=== PATIENT | female | born 1945 | race African-American/Black ===

== ENCOUNTER 2017-03-04 09:59 | Inpatient (IN) | payer MEDICARE, MEDICAID ==
[2017-03-04] VITALS (13 sets, daily range): BP systolic 88–158; BP diastolic 56–92
[~2017-03-04] VITALS: Ht 157.5 cm; Wt 68.0 kg
[~2017-03-04 09:59] MED LIST: AFRIN NASAL SPR30 ML NASAL; AMIKACIN SULFATE INH; AMIKIN500 MG/2 M INH; ARTIFICIAL TEAR15 M4 OP; ASCORBIC ACID500 M4 GT; ASPIR-LOW81 MG GT; ASPIRIN81 MG ORAL; BENAZEPRIL HCL10 MG GT; COLACE100 MG/10 GT; COLISTIMETHATE150 MG IJ; CRANBERRY400 MG PO; DULCOLAX10 MG RC; DUONEB 0.5-3(2.53 ML HHN; EPOGEN10000 UNIT SUBQ; FERROUS SU300 MG/52 GT; FLAGYL500 MG GT; FLORASTOR250 MG GT; GLUCOPHAGE500 MG GT; IMODIUM A-D2 MG GT; LACTASE1 GM GT; LACTASE3000 UNIT PO; LANTUS5 UNITS SUBQ; LEVAQUIN500 MG GT; LOPRESSOR25 M1 GT; MEROPENEM500 MG IV; METOPROLOL TART25 MG GT; MILK OF MA400 MG/51 GT; MULTIVITAMIN HEX5 ML GT; MULTIVITAMINS1 EA13 GT; NOVOLOG100 UNIT/3 SUBQ; OMEPRAZOLE20 M2 GT; OS-CAL 500+D C1 EAC1 GT; PEPTO-BISM262 MG/15 PO; SUCRALFATE1 GM/10 ML GT; TYGACIL50 MG IVPB; TYLENOL325 MG GT; VALPROIC A500 MG/10 GT; Vancomycin Hcl MISC
[2017-03-04] MEDS ORDERED: Famotidine 20 MG/ 2ML VIAL IVP ONE (10:15)
[2017-03-04] MEDS ORDERED: MILK OF MA400 MG/51 GT (10:29)
[2017-03-04] MEDS ORDERED: NORCO 5-325 TA1 EACH GT (10:29)
[2017-03-04 10:39] LABS: ABG PCO2 40.2 mmHg (35.0-45.0)
[2017-03-04 10:40] LABS: ABG ALLEN TEST POSITIVE; ABG BASE EXCESS 5.3
--- NOTE | 2017-03-04 11:00 | Diagnostic Imaging Report ---
Indication: Chest Pain Comparison: None A single view chest radiograph was obtained. Findings: There is evidence of a small left pleural effusion and atelectasis. Heart size is normal. Pulmonary edema not appreciated currently. Tracheostomy noted. Bones are osteopenic. Impression: Probable trace left pleural effusion. Mild left basal atelectasis
[2017-03-04 11:28] LABS: MEAN CORPUSCULAR HEMOGLOBIN 25.6 PG (27.0-31.0); MEAN CORPUSCULAR HGB CONC 29.4 G/DL (32.0-36.0); MEAN CORPUSCULAR VOLUME 87 FL (80-99); MEAN PLATELET VOLUME 8.2 FL (6.5-10.1); PLATELET COUNT 431 K/UL (150-450); RED BLOOD COUNT 2.68 M/UL (4.20-5.40); RED CELL DISTRIBUTION WIDTH 14.4 % (11.6-14.8); WHITE BLOOD COUNT 13.3 K/UL (4.8-10.8)
[2017-03-04 11:37] LABS: ALANINE AMINOTRANSFERASE 7 U/L (3-33); ALBUMIN/GLOBULIN RATIO 0.3 (1.0-2.7); ANION GAP 14 (5-15); ASPARTATE AMINO TRANSFERASE 15 U/L (5-40); CALCIUM 9.6 mg/dL (8.6-10.2); CARBON DIOXIDE 28 mEQ/L (20-30); CHLORIDE 93 mEQ/L (98-107); CREATININE 0.7 mg/dL (0.5-0.9); GLOMERULAR FILTRATION RATE > 60 mL/min (>60); HEMOLYSIS 49; POTASSIUM 5.1 mEQ/L (3.4-4.9); SODIUM 135 mEQ/L (135-145); TOTAL PROTEIN 8.8 g/dL (6.6-8.7); TROPONIN I < 0.30 ng/mL (<=0.30)
[2017-03-04 11:44] LABS: REFLEX LACTIC ACID YES OR NO YES
[2017-03-04 11:59] LABS: INR 1.1 (0.9-1.1); PROTHROMBIN TIME 10.7 SEC (9.30-11.50)
[2017-03-04] MEDS ORDERED: metroNIDAZOLE 500mg 100 ML IVPB ONE (12:15)
[2017-03-04] MEDS ORDERED: Acetaminophen 650mg/20.3ml GT STA (12:15)
[2017-03-04] MEDS ORDERED: Piperacillin/Tazobactam 3.375 GM in NS 110 ML IVPB ONE (12:15)
[2017-03-04] MEDS ORDERED: Vancomycin 1 GM in D5W 275 ML IVPB ONE (12:15)
[2017-03-04 12:18] LABS: APPEARANCE,URINE CLOUDY; KETONES,URINE 1+ (NEGATIVE); LEUKOCYTE ESTERASE ,URINE 3+ (NEGATIVE); NITRITE,URINE NEGATIVE (NEGATIVE); PH,URINE 8 (4.5-8.0); PROTEIN,URINE 3+ (NEGATIVE); UROBILINOGEN,URINE NORMAL MG/DL (0.0-1.0)
[2017-03-04 12:26] LABS: ANISOCYTOSIS 1+; BAND NEUTROPHILS % (MANUAL) 1 % (0-8); BASOPHILS % (MANUAL) 0 % (0-2); EOSINOPHILS % (MANUAL) 0 % (0-3); HYPOCHROMASIA 3+; LYMPHOCYTES % (MANUAL) 34 % (20-45); NEUTROPHILS % (MANUAL) 51 % (45-75); PLATELET ESTIMATE ADEQUATE; TOTAL CELLS COUNTED 100
[2017-03-04] MEDS ORDERED: Zosyn 3.375gm inj ONE (12:26)
[2017-03-04 12:27] LABS: PLATELET MORPHOLOGY NORMAL
[2017-03-04 12:29] LABS: BACTERIA,URINE MODERATE /HPF; RBC,URINE TNTC /HPF (0 - 2); SQUAMOUS EPITHELIAL CELL,UR FEW /LPF (NONE/OCC); WBC,URINE TNTC /HPF (0 - 2)
[2017-03-04 12:30] LABS: AMORPHOUS SEDIMENT,UR FEW /LPF
--- NOTE | 2017-03-04 12:46 | Diagnostic Imaging Report ---
Indication: Abdominal pain Comparison: None Single view of the abdomen obtained Findings: Bowel gas pattern is nonspecific. There is retained contrast material from a previous contrast administration. Gastrostomy tube is again noted projected over the left-sided abdomen. Bones are osteopenic. Impression: No acute findings appreciated
--- NOTE | 2017-03-04 12:48 | Emergency Room Report ---
History of Present Illness General Chief Complaint: Abnormal Labs Source: EMS Present Illness HPI Patient sent for low H/H. No h/o bleeding or melena. Trach/vent dependent patient. No other history is available. Allergies: Coded Allergies: HEPARIN (PORCINE) (Verified Allergy, Unknown, 03/31/10) HEPARIN ANALOGUES (Unverified Allergy, Unknown, UNK, 12/18/12) Patient History Limited by: medical condition Past Medical History: see triage record Past Surgical History: other - g tube and trach Social History Narrative at snf Reviewed Nursing Documentation: PMH: Agreed, PSxH: Agreed Nursing Documentation-PMH Hx Cardiac Problems: No Hx Hypertension: Yes Hx Pacemaker: No Hx Asthma: No Hx COPD: No Hx Diabetes: Yes Hx Cancer: No Hx Gastrointestinal Problems: Yes - gtube Hx Dialysis: No Hx Cerebrovascular Accident: Yes Hx Dementia: Yes Hx Seizures: Yes Hx Epilepsy: Yes Hx Aphasia: Yes Hx Dysphasia: Yes Hx Weakness: Yes Hx Neurologic Surgery: No Hx Brain Shunt: No Review of Systems All Other Systems: limited Physical Exam Vital Signs Date Time Temp Pulse Resp B/P Pulse Ox O2 Delivery O2 Flow Rate FiO2 03/04/17 09:57 98.2 110 19 131/82 100 Mechanical Ventilator 03/04/17 10:06 40 Sp02 EP Interpretation: reviewed, normal General Appearance: well appearing, no apparent distress, GCS 15, Chronically Ill Head: normocephalic Eyes: bilateral eye PERRL, bilateral eye conjunctivae pale, bilateral eye other - dyscongugate gaze ENT: moist mucus membranes Neck: supple Respiratory: lungs clear, normal breath sounds Cardiovascular #1: regular rate, rhythm Cardiovascular #2: 2+ radial (R) Gastrointestinal: normal inspection, normal bowel sounds, non tender, no mass, non-distended Rectal: heme negative stool - liquid Genitourinary: other - vinson with purlulent urine Musculoskeletal: decreased range of motion - contractures, other - flexor contractures Neurologic: motor weakness, other - follow with eyes, extrem weakness bilat Psychiatric: other - ebulic Skin: pallor, other - sacrak decubitus Procedures Critical Care Time Critical Care Time Total Critical Care Time: 30 min bedside evaluation and treatment excludes procedures (EKG). Reason for critical care: sepsis, severe anemia, elevated temp Possible complications: hypotension, hypertension, AR, shock, arrhythmias, metabolic acidosis, end organ damage, respiratory failure. Interventions: fluid bolus, antibiotics, antipyretics, discussion with PMD Course: Patient presented with low H/H. Evaluation and initiate treatment for sepsis. Antibiotics begun. Vent adjusted. Discussion with PMD. Repeat evaluations as temp rising. Increased fluids and cooling measures. Consultations: nursing staff, EMS, RT, admitting MD Performed by: Dr. Jarrett Tolerated well condition = critical Medical Decision Making Diagnostic Impression: Primary Impression: Anemia Qualified Codes: D50.9 - Iron deficiency anemia, unspecified Additional Impressions: Sepsis Qualified Codes: A41.9 - Sepsis, unspecified organism UTI (urinary tract infection) Qualified Codes: N30.00 - Acute cystitis without hematuria ER Course Patient with low h/h. Ddx: chronic disease, renal insufficiency, bleeding. Also needs evaluation for possible sepsis with low grade temp. Eval with BC, labs, lactate, CXR, EKG and ABG on vent. Need to set up blood. Complicated chronically ill patient. Guaiac neg. H/H low. Urine infected. Start transfusion. Unable due to fever. ABG with alkalosis. Antibiotics begun. Sepsis from urinary source. Admit rosa m Dr. Judge. Temperature rising. Repeat tylenol and cooling measures begun. Laboratory Tests Test 03/04/17 10:05 03/04/17 11:00 03/04/17 11:58 03/04/17 14:05 Arterial Blood pH 7.479 (7.350-7.450) Arterial Blood Partial Pressure CO2 40.2 mmHg (35.0-45.0) Arterial Blood Partial Pressure O2 148.9 mmHg (75.0-100.0) H Arterial Blood HCO3 29.2 mmol/L (22.0-26.0) H Arterial Blood Oxygen Saturation 99.1 % (92.0-98.0) H Arterial Blood Base Excess 5.3 Santos Test Positive White Blood Count 13.3 K/UL (4.8-10.8) H Red Blood Count 2.68 M/UL (4.20-5.40) L Hemoglobin 6.9 G/DL (12.0-16.0) *L Hematocrit 23.3 % (37.0-47.0) L Mean Corpuscular Volume 87 FL (80-99) Mean Corpuscular Hemoglobin 25.6 PG (27.0-31.0) L Mean Corpuscular Hemoglobin Concent 29.4 G/DL (32.0-36.0) L Red Cell Distribution Width 14.4 % (11.6-14.8) Platelet Count 431 K/UL (150-450) Mean Platelet Volume 8.2 FL (6.5-10.1) Neutrophils (%) (Auto) % (45.0-75.0) Lymphocytes (%) (Auto) % (20.0-45.0) Monocytes (%) (Auto) % (1.0-10.0) Eosinophils (%) (Auto) % (0.0-3.0) Basophils (%) (Auto) % (0.0-2.0) Differential Total Cells Counted 100 Neutrophils % (Manual) 51 % (45-75) Lymphocytes % (Manual) 34 % (20-45) Monocytes % (Manual) 14 % (1-10) H Eosinophils % (Manual) 0 % (0-3) Basophils % (Manual) 0 % (0-2) Band Neutrophils 1 % (0-8) Platelet Estimate Adequate Platelet Morphology Normal Hypochromasia 3+ Anisocytosis 1+ Prothrombin Time 10.7 SEC (9.30-11.50) Prothrombin Time INR 1.1 (0.9-1.1) PTT 22 SEC (23-33) L Sodium Level 135 mEQ/L (135-145) Potassium Level 5.1 mEQ/L (3.4-4.9) H Chloride Level 93 mEQ/L (98-107) L Carbon Dioxide Level 28 mEQ/L (20-30) Anion Gap 14 (5-15) Blood Urea Nitrogen 19 mg/dL (7-23) Creatinine 0.7 mg/dL (0.5-0.9) Estimate Glomerular Filtration Rate > 60 mL/min (>60) Glucose Level 165 mg/dL (74-106) H Lactic Acid Level 3.80 mmol/L (0.66-2.22) H 3.60 mmol/L (0.66-2.22) H Calcium Level 9.6 mg/dL (8.6-10.2) Total Bilirubin < 0.2 mg/dL (0.0-1.2) Aspartate Amino Transferase (AST) 15 U/L (5-40) Alanine Aminotransferase (ALT) 7 U/L (3-33) Alkaline Phosphatase 91 U/L (35-104) Total Creatine Kinase 16 U/L (26-140) L Troponin I < 0.30 ng/mL (<=0.30) Pro-B-Type Natriuretic Peptide 497 pg/mL (0-125) H Total Protein 8.8 g/dL (6.6-8.7) H Albumin 2.5 g/dL (3.5-5.2) L Globulin 6.3 g/dL Albumin/Globulin Ratio 0.3 (1.0-2.7) L Urine Color Pale yellow Urine Appearance Cloudy Urine pH 8 (4.5-8.0) Urine Specific [place] 1.010 (1.005-1.035) Urine Protein 3+ (NEGATIVE) H Urine Glucose (UA) Negative (NEGATIVE) Urine Ketones 1+ (NEGATIVE) H Urine Occult Blood 5+ (NEGATIVE) H Urine Nitrite Negative (NEGATIVE) Urine Bilirubin Negative (NEGATIVE) Urine Urobilinogen Normal MG/DL (0.0-1.0) Urine Leukocyte Esterase 3+ (NEGATIVE) H Urine RBC Tntc /HPF (0 - 2) H Urine WBC Tntc /HPF (0 - 2) H Urine Squamous Epithelial Cells Few /LPF (NONE/OCC) Urine Amorphous Sediment Few /LPF (NONE) H Urine Bacteria Moderate /HPF (NONE) H EKG Diagnostic Results Rate: tachycardiac ST Segments: no acute changes Rhythm Strip Diag. Results EP Interpretation: yes Rhythm: no PVC's, no ectopy, other - ST Chest X-Ray Diagnostic Results EP Interpretation: Yes Findings: no effusion, no pneumothorax, other - atelectasis L Number of Views: 1 Other X-Ray Diagnostic Results Other X-Ray Diagnostic Results : X-Ray Ordered: abd EP Interpretation: Yes Findings: other - clips, some dilitation, no SBO Number of Views: 1 Last Vital Signs Date Time Temp Pulse Resp B/P Pulse Ox O2 Delivery O2 Flow Rate FiO2 03/04/17 20:46 102 18 28 03/04/17 20:33 100.7 100/66 99 Mechanical Ventilator Status: improved Disposition: ADMITTED INPATIENT Condition: Serious Referrals: ALBER JUDGE (PCP) Benedict Jarrett M.D. March 04, 2017 12:48
[2017-03-04] MEDS ORDERED: Vancomycin 1gm in D5W 275ml IVPB SCH (14:00)
[2017-03-04] MEDS ORDERED: Vancomycin 1gm inj IVPB ONE (14:03)
[2017-03-04] MEDS ORDERED: Acetaminophen 650 MG SUPP RECTAL ONE ×2 (15:53→16:00)
[2017-03-04] MEDS ORDERED: ZOFRAN4 M3 ORAL (17:22)
[2017-03-04] MEDS ORDERED: ZOFRAN4 M3 GT (17:23)
[2017-03-04] MEDS ORDERED: ZINC SULFATE220 M2 GT (17:25)
[2017-03-04] MEDS ORDERED: TYLENOL650 MG/20. GT (17:30)
[2017-03-04] MEDS ORDERED: DOCUSATE SODIU250 MG GT (17:35)
[2017-03-04] MEDS ORDERED: FLEET ENEMA133 ML RECTAL (17:38)
[2017-03-04] MEDS ORDERED: Acetaminophen 650mg/20.3ml GT PRN (17:45)
[2017-03-04] MEDS ORDERED: Milk of Magnesia 30ml Ud GT PRN ×2 (17:45)
[2017-03-04] MEDS ORDERED: CRANBERRY GT (17:49)
[2017-03-04] MEDS ORDERED: Ibuprofen Susp 100mg/5ml GT PRN (18:45)
[2017-03-04] MEDS ORDERED: Aspirin EC 81mg tab ORAL SCH (19:00)
[2017-03-04] MEDS ORDERED: Multivitamin w/Minerals tab ORAL SCH (19:00)
[2017-03-04] MEDS: DuoNeb 0.5-3(2.5)mg/3ml neb HHN SCH (19:00)
[2017-03-04] MEDS ORDERED: Docusate 250mg cap ORAL SCH (19:00)
[2017-03-04] MEDS: Metoprolol 25mg tab GT SCH (19:00)
[2017-03-04] MEDS: Valproic Acid 250mg/5ml Liquid NG SCH (22:03)
[2017-03-04] MEDS: Levemir Flexpen SUBQ SCH (22:06)
[2017-03-04] MEDS: Ferrous Sulfate 300 MG/5 ML UDC GT SCH (22:52)
[2017-03-05 00:25] VITALS: BP 113/65
[2017-03-05] MEDS: DuoNeb 0.5-3(2.5)mg/3ml neb HHN SCH ×4 (01:03→19:30)
--- NOTE | 2017-03-05 02:08 | Consultation ---
DATE OF CONSULTATION: 03/04/2017 PULMONARY CONSULTATION CONSULTING PHYSICIAN: Jaime Heller M.D. REFERRING PHYSICIAN: Leighton Zhou M.D. HISTORY OF PRESENT ILLNESS: This is a 72-year-old female well known to me. The patient is ventilator-dependant and resides in the subacute facility at [facility]. The patient was brought in to the emergency room for abnormal labs and worsening hemoglobin, now 6.9 on evaluation. The patient now been admitted for workup and I was called for assistance with ventilatory management. The patient is unable to give a history. The patient is chronically ill and in vegetative state at this point. The care was discussed and reviewed with Dr. Zhou. The ER notes reviewed as well. The patient's care reviewed in detail with the patient. PAST MEDICAL HISTORY: Notable for known history of respiratory failure, tracheostomy, G-tube, chronic encephalopathy, aspiration, prior history of pneumonia, prior history of seizures, and prior history of CVA. MEDICATIONS: Reviewed. ALLERGIES: Reviewed. SOCIAL HISTORY: The patient resides at [facility]. She does have a . She is still Full Code. The patient is essentially bedbound, fully dependent. PHYSICAL EXAMINATION: GENERAL: A well-developed female, chronically ill. VITAL SIGNS: T-max in the emergency room of 103 degrees, heart rate up to 103, blood pressure 121/66, saturation 98%, and respiratory rate 16. HEENT: Fairly negative. Tracheostomy is midline. Carotids 2+. LUNGS: With adequate breath sounds. Minimal rhonchi. CARDIAC: Tachycardic without murmurs, rubs, or gallops. ABDOMEN: Soft. G-tube in place. No distention. EXTREMITIES: No cyanosis or clubbing. There is significant contractures. NEUROLOGIC: Poorly responsive. LABORATORY DATA: White count 13.3, hemoglobin 6.9, hematocrit 23.2, and platelets 431,000. Chemistries, potassium 5.1. Blood sugar 165. Lactic acid 3.6. Arterial blood gases, 7.47, 40, and 148. X-rays were noted and reviewed. Notable for trace +2 effusion and atelectasis. IMPRESSION: 1. Respiratory failure as well as some mild atelectasis. 2. Fever. 3. Leukocytosis. 4. Tachycardia consistent with sepsis. 5. Profound anemia. 6. Possible gastrointestinal bleed. 7. History of seizure. 8. History of cerebrovascular accident. 9. Tracheostomy. 10. Gastrostomy tube. 11. Chronic encephalopathy. RECOMMENDATIONS: 1. Follow up clinically and monitor. 2. IV antibiotics empirically. 3. Panculture. 4. Follow for further changes. 5. Transfused two units of packed red blood cells. 6. GI evaluation needed. 7. Stool for occult blood. 8. Ventilator respiratory support as is. 9. Taper FiO2 and monitor clinically for changes and interventions. 10. The patient is guarded at present and needs close observation in the acute hospital setting. Jaime Heller M.D. DR: JOAO JOB#: [id number] CC: SANIYA
[2017-03-05] MEDS: Piperacillin/Tazobactam 3.375 GM in D5W 110 ML IVPB SCH ×4 (03:57→21:32)
[2017-03-05 04:00] VITALS: BP 103/70
[2017-03-05 08:19] VITALS: BP 124/72
--- NOTE | 2017-03-05 08:32 | Pulmonology Progress Note ---
Assessment/Plan Assessment/Plan IMPRESSION: 1. Respiratory failure . 2. Fever/ sepsis 3. Leukocytosis. 4. Tachycardia 5. Profound anemia. 6. Possible gastrointestinal bleed. 7. History of seizure. 8. History of cerebrovascular accident. 9. Tracheostomy. 10. Gastrostomy tube. 11. Chronic encephalopathy. PLAN no change ventilator iv hydration iv antibiotics follow up labs after transfusion gi and id evaluation supportive measures impression, plan, and exam edited and reviewed in detail care discussed with RN Subjective ROS Limited/Unobtainable: Yes Allergies: Coded Allergies: HEPARIN (PORCINE) (Verified Allergy, Unknown, 03/31/10) HEPARIN ANALOGUES (Unverified Allergy, Unknown, UNK, 12/18/12) Subjective on the ventilator poor LOC Objective Last 24 Hour Vital Signs Date Time Temp Pulse Resp B/P Pulse Ox O2 Delivery O2 Flow Rate FiO2 03/05/17 08:19 103 03/05/17 08:19 97.9 103 18 124/72 98 Mechanical Ventilator 03/05/17 07:13 104 21 28 03/05/17 05:11 88 18 28 03/05/17 04:00 28 03/05/17 04:00 97.4 100 19 103/70 98 Mechanical Ventilator 03/05/17 04:00 83 03/05/17 03:00 90 18 28 03/05/17 01:13 105 23 99 Mechanical Ventilator 28 03/05/17 01:10 103 21 99 Mechanical Ventilator 28 03/05/17 01:03 86 18 28 03/05/17 00:25 97.3 99 18 113/65 99 Mechanical Ventilator 03/05/17 00:00 28 03/05/17 00:00 99 03/04/17 23:20 83 18 28 03/04/17 20:46 102 18 28 03/04/17 20:33 100.7 113 18 100/66 99 Mechanical Ventilator 28 03/04/17 20:30 100.7 113 18 100/66 99 Mechanical Ventilator 03/04/17 19:41 99.8 117 23 123/76 99 Mechanical Ventilator 28 03/04/17 19:31 117 18 28 03/04/17 19:26 99.8 124 18 110/64 100 Mechanical Ventilator 03/04/17 19:00 110 91/53 03/04/17 18:45 118 18 106/63 99 Mechanical Ventilator 03/04/17 18:30 116 18 105/62 99 Mechanical Ventilator 28 03/04/17 18:15 123 18 115/58 99 Mechanical Ventilator 28 03/04/17 17:45 100.9 113 18 88/56 99 Mechanical Ventilator 28 03/04/17 17:45 100.9 03/04/17 17:45 100.9 03/04/17 17:11 141 18 28 03/04/17 16:45 125 18 97/57 98 Mechanical Ventilator 28 03/04/17 16:16 103.0 133 18 121/66 98 Mechanical Ventilator 28 03/04/17 15:23 118 20 28 03/04/17 14:30 102.6 142 25 158/92 98 Room Air 03/04/17 13:42 101.4 123 20 121/69 99 Mechanical Ventilator 28 03/04/17 13:42 101.4 03/04/17 13:26 105 18 28 03/04/17 12:17 100.4 122 18 130/79 99 Mechanical Ventilator 28 03/04/17 11:30 124 20 Mechanical Ventilator 28 03/04/17 11:26 28 03/04/17 11:04 105 18 Mechanical Ventilator 40 03/04/17 10:33 105 18 28 03/04/17 10:17 98.5 105 18 96/61 100 Mechanical Ventilator 40 03/04/17 10:06 105 18 40 03/04/17 10:06 105 18 Mechanical Ventilator 40 03/04/17 09:57 98.2 110 19 131/82 100 Mechanical Ventilator Intake and Output 03/04/17 03/05/17 19:00 07:00 Intake Total 2485 ml 710.542 ml Output Total 10 ml 600 ml Balance 2475 ml 110.542 ml Intake IV Total 2485 ml 440.542 ml Blood Product 270 ml Output Urine Total 10 ml 600 ml # Bowel Movements 1 Objective GENERAL: A well-developed female, chronically ill. HEENT: Fairly negative. Tracheostomy is midline. Carotids 2+. LUNGS: With adequate breath sounds. some rhonchi. CARDIAC: RRR without murmurs, rubs, or gallops. ABDOMEN: Soft. G-tube in place. No distention. no HSM EXTREMITIES: No cyanosis or clubbing. There is significant contractures. NEUROLOGIC: Poorly responsive. same overall Laboratory Tests 03/04/17 10:05: Arterial Blood pH 7.479H, Arterial Blood Partial Pressure CO2 40.2, Arterial Blood Partial Pressure O2 148.9H, Arterial Blood HCO3 29.2H, Arterial Blood Oxygen Saturation 99.1H, Arterial Blood Base Excess 5.3, Santos Test Positive 03/04/17 11:00: White Blood Count 13.3H, Red Blood Count 2.68L, Hemoglobin 6.9*L, Hematocrit 23.3L, Mean Corpuscular Volume 87, Mean Corpuscular Hemoglobin 25.6L, Mean Corpuscular Hemoglobin Concent 29.4L, Red Cell Distribution Width 14.4, Platelet Count 431, Mean Platelet Volume 8.2, Neutrophils (%) (Auto) , Lymphocytes (%) (Auto) , Monocytes (%) (Auto) , Eosinophils (%) (Auto) , Basophils (%) (Auto) , Differential Total Cells Counted 100, Neutrophils % ( Manual) 51, Lymphocytes % (Manual) 34, Monocytes % (Manual) 14H, Eosinophils % ( Manual) 0, Basophils % (Manual) 0, Band Neutrophils 1, Platelet Estimate Adequate, Platelet Morphology Normal, Hypochromasia 3+, Anisocytosis 1+, Prothrombin Time 10.7, Prothromb Time International Ratio 1.1, Activated Partial Thromboplast Time 22L, Sodium Level 135, Potassium Level 5.1H, Chloride Level 93L, Carbon Dioxide Level 28, Anion Gap 14, Blood Urea Nitrogen 19, Creatinine 0.7, Estimat Glomerular Filtration Rate > 60, Glucose Level 165H, Lactic Acid Level 3.80H, Calcium Level 9.6, Total Bilirubin < 0.2, Aspartate Amino Transf (AST/SGOT) 15, Alanine Aminotransferase (ALT/SGPT) 7, Alkaline Phosphatase 91, Total Creatine Kinase 16L, Troponin I < 0.30, Pro-B-Type Natriuretic Peptide 497H, Total Protein 8.8H, Albumin 2.5L, Globulin 6.3, Albumin/Globulin Ratio 0.3L 03/04/17 11:58: Urine Color Pale yellow, Urine Appearance Cloudy, Urine pH 8, Urine Specific [place] 1.010, Urine Protein 3+H, Urine Glucose (UA) Negative, Urine Ketones 1+H , Urine Occult Blood 5+H, Urine Nitrite Negative, Urine Bilirubin Negative, Urine Urobilinogen Normal, Urine Leukocyte Esterase 3+H, Urine RBC TntcH, Urine WBC TntcH, Urine Squamous Epithelial Cells Few, Urine Amorphous Sediment FewH, Urine Bacteria ModerateH 03/04/17 14:05: Lactic Acid Level 3.60H Current Medications Medications (Trade) Dose Ordered Sig/Robert Route PRN Reason Start Time Stop Time Status Last Admin Dose Admin Acetaminophen (Tylenol) 650 mg Q4H PRN GT Prn Headache/Temp > 101 03/04/17 17:45 04/03/17 17:44 Albuterol/ Ipratropium (DuoNeb 0.5-3(2.5)mg/3ml) 3 ml Q6HRT HHN 03/04/17 19:00 03/09/17 18:59 03/05/17 07:13 Aspirin (ASA) 81 mg DAILY GT 03/05/17 09:00 04/04/17 08:59 Bisacodyl (Dulcolax) 10 mg DAILYPRN PRN RECTAL Constipation 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 03/04/17 17:45 04/03/17 17:44 Docusate Sodium 250 mg 250 mg TWICE A DAY ORAL 03/05/17 09:00 04/04/17 08:59 Epoetin Ilia (Procrit (for non ESRD use)) 7,000 units MON-WED-FRI SUBQ 03/05/17 21:00 04/04/17 20:59 Ferrous Sulfate (Feosol) 300 mg BID GT 03/04/17 19:00 04/03/17 18:59 03/04/17 22:52 Ibuprofen (Children's Advil) 400 mg TID PRN GT For Pain 03/04/17 18:45 04/03/17 18:44 03/04/17 19:12 Insulin Detemir (Levemir) 5 units BID SUBQ 03/04/17 21:00 04/03/17 20:59 03/04/17 22:06 Lansoprazole (Prevacid) 30 mg DAILY GT 03/05/17 09:00 04/04/17 08:59 Magnesium Hydroxide (Mom) 30 ml DAILYPRN PRN GT Constipation 03/04/17 17:45 04/03/17 17:44 Metoprolol Tartrate (Lopressor) 12.5 mg DAILY GT 03/04/17 19:00 04/03/17 18:59 Multivitamins (Multivitamins W/ Minerals 15ml Liquid) 15 ml DAILY GT 03/05/17 09:00 04/04/17 08:59 Piperacillin Sod/ Tazobactam Sod/ Dextrose (Zosyn/D5W) 110 ml @ 27.5 mls/hr EVERY 8 HOURS IVPB 03/04/17 22:00 03/09/17 21:59 03/05/17 03:57 Sodium Chloride 1,000 ml @ 75 mls/hr [id number] IV 03/04/17 19:00 04/03/17 18:59 03/04/17 22:05 Valproic Acid 750 mg 750 mg EVERY 12 HOURS NG 03/04/17 21:00 04/03/17 20:59 03/04/17 22:03 Vancomycin HCl (Vanco rx to dose) 1 ea DAILY PRN MISC Per rx protocol 03/04/17 18:00 04/03/17 17:59 Vancomycin HCl/ Dextrose (Vancomycin/D5W) 275 ml @ 183.708 mls/hr Q24H IVPB 03/05/17 12:00 03/10/17 11:59 HAFSA PRESTON March 05, 2017 08:32
[2017-03-05] MEDS: Docusate 100mg/10ml Liq ORAL SCH ×2 (09:00→18:00)
[2017-03-05] MEDS: Vancomycin 1gm in D5W 275ml IVPB SCH (09:43)
[2017-03-05] MEDS: Ferrous Sulfate 300 MG/5 ML UDC GT SCH ×2 (09:44→18:41)
[2017-03-05] MEDS: Metoprolol 25mg tab GT SCH (09:44)
[2017-03-05] MEDS: Multivitamins W/Minerals 15 ML UDC GT SCH (09:44)
[2017-03-05] MEDS: Aspirin Baby 81mg GT SCH (09:44)
[2017-03-05] MEDS: Valproic Acid 250mg/5ml Liquid NG SCH ×2 (09:45→21:31)
[2017-03-05] MEDS: Levemir Flexpen SUBQ SCH ×2 (09:47→18:45)
--- NOTE | 2017-03-05 11:49 | History and Physical Report ---
DATE OF ADMISSION: 03/04/2017 CHIEF COMPLAINT: Sepsis and anemia. HISTORY OF PRESENT ILLNESS: The patient is a 72-year-old female. She has a history of encephalopathy, stroke, chronic respiratory failure, diabetes, hypertension, and seizure disorder. She presented from residential facility for evaluation of anemia. There were no reports of any bleeding. Repeat CBC done at the residential facility confirmed anemia. She also had low-grade fever. On evaluation in the emergency room, the patient's hemoglobin was 6.9. [place] [id number]. The patient had been pancultured and has been started on broad-spectrum IV antibiotics. She is now admitted for further evaluation and care. She is nonverbal at baseline. She is a Full Code. PAST MEDICAL HISTORY: As above. PAST SURGICAL HISTORY: Includes a history of a trach and a G-tube. CURRENT MEDICATIONS: Reconciled and reviewed. ALLERGIES: Include heparin. SOCIAL HISTORY: There is no known history of tobacco, ethanol, or drugs. FAMILY HISTORY: Noncontributory REVIEW OF SYSTEMS: Review of systems from the patient is unobtainable. PHYSICAL EXAMINATION: VITAL SIGNS: T-max was 100.3 degrees current 97.9 degrees, pulse 103, respirations 18, and blood pressure 124/72. GENERAL: The patient is chronically ill-appearing female, in no apparent distress. She is nonverbal at baseline. NECK: Supple. Trach site is clean. HEART: Regular rate and rhythm. LUNGS: Lungs are clear. scattered rhonchi. ABDOMEN: Soft, nontender, and nondistended. EXTREMITIES: Without clubbing or cyanosis. The patient has contractures noted of the hands. LABORATORY DATA: Sodium was 135 and potassium 5.1. Lactic acid was 3.8. White count 13,000, hemoglobin 6, hematocrit 23, and platelet count 431,000. Coags were normal. Chest x-ray shows trace left-sided effusion. UA showed too numerous count WBCs. ASSESSMENT: This is an unfortunate female with history of encephalopathy, chronic respiratory failure, stroke, seizure disorder, diabetes, and hypertension, admitted with sepsis and anemia. Problems, 1. Sepsis caused anemia 2. Shock now recovered. 3. Possible gastrointestinal bleed. 4. Seizure disorder. 5. Diabetes. 6. Hypertension. PLAN: Transfuse hemoglobin greater than 8.5. Check iron studies and stool for occult blood. PPI treatment. Consider GI consultation. Pulmonary consultation for management of patient's ventilator. Cardiology for management of the patient's antihypertensives and heart failure. ID consultation has also been obtained. The patient's plan of care and the patient's status was discussed with the patient's son, who is the patient's power of pharmaceutical compounding supervisor and decision maker. He agrees with current plan of care. Leighton Zhou M.D. DR: Maite JOB#: [id number] CC:
[2017-03-05 12:15] VITALS: BP 108/63
--- NOTE | 2017-03-05 15:15 | Wound Care Consultation ---
Wound Assessment Wound Assessment #1: Wound Present on Admission: Yes New Wound: No Status Change of Wound: No Wound Location Body Site Modif: mid Wound Location Body Site: sacral Wound Type: pressure ulcer Stoney Test: Does not Stoney Pressure Ulcer Stage: IV/unstageable Wound Thickness: Full Thickness Wound Length: 6.5 Wound Width: 8.0 Wound Depth: 3.0 Percent of Wound [place]/Red: 100 Wound Drainage Description: Serosanguineous Wound Drainage Amount: Moderate Wound Drainage Odor: None/Absent Tissue Surrounding Wound: Macerated Wound General Appearance: Draining, Bone Palpable, Muscle Visible Wound Assessment #2: Wound Number: #2 Wound Present on Admission: Yes New Wound: No Status Change of Wound: No Wound Location Body Site: coccyx - and left and right buttocks Wound Type: pressure ulcer Stoney Test: Does not Stoney Pressure Ulcer Stage: III - scattered Wound Thickness: Full Thickness Percent of Wound [place]/Red: 100 Wound Drainage Description: Serosanguineous Wound Drainage Amount: Moderate Wound Drainage Odor: None/Absent Tissue Surrounding Wound: Macerated Wound General Appearance: Reddened, Draining Wound Comment #1 Sacral stage IV pressure ulcer #2 Coccyx area, left and right buttocks with multiple scattered stage III wounds Recommendation -Sacral pressure ulcer Cleanse with saline, pat dry apply Hydrogel apply calcium alginate cover with Bordered Gauze daily and PRN soiled/dislodged -Coccyx area, left and right buttocks multiple scattered stage III Cleanse with saline, pat dry, apply Triad cream, cover with Bordered Gauze daily and PRN soiled/dislodged -Keep clean and dry -Turn and reposition -Optimize nutrition -Low air loss mattress -Offload both heels -Heel protector on both heels -Assess and f/u accordingly for any changes CHANDRIKA GONZALES RN March 05, 2017 15:15
[2017-03-05 15:35] LABS: BASOPHILS % (AUTO) 0.7 % (0.0-2.0); EOSINOPHILS % (AUTO) 1.1 % (0.0-3.0); LYMPHOCYTES % (AUTO) 13.4 % (20.0-45.0); MEAN CORPUSCULAR HEMOGLOBIN 27.1 PG (27.0-31.0); MEAN CORPUSCULAR HGB CONC 31.8 G/DL (32.0-36.0); MEAN CORPUSCULAR VOLUME 85 FL (80-99); MEAN PLATELET VOLUME 7.9 FL (6.5-10.1); MONOCYTES % (AUTO) 8.7 % (1.0-10.0); NEUTROPHILS % (AUTO) 76.1 % (45.0-75.0); PLATELET COUNT 344 K/UL (150-450); RED BLOOD COUNT 3.11 M/UL (4.20-5.40); RED CELL DISTRIBUTION WIDTH 13.9 % (11.6-14.8); WHITE BLOOD COUNT 11.8 K/UL (4.8-10.8)
[2017-03-05 16:00] VITALS: BP 111/67
--- NOTE | 2017-03-05 16:48 | Consultation ---
DATE OF CONSULTATION: 03/05/2017 INFECTIOUS DISEASES CONSULTATION REFERRING PHYSICIAN: Leighton Zhou M.D. REASON FOR CONSULTATION: Fever and leukocytosis. HISTORY OF PRESENTING ILLNESS: This is a 72-year-old lady with history of encephalopathy, stroke, chronic respiratory failure diabetes, hypertension, and seizure disorder, who came in from [facility] with fevers. She was also found to have a leukocytosis and an Infectious Diseases consultation has been obtained for antibiotics. PAST MEDICAL HISTORY: 1. History of encephalopathy. 2. History of stroke. 3. Respiratory failure, status post tracheostomy. 4. Seizure disorder. 5. Diabetes. 6. Hypertension. 7. Status post G-tube placement. MEDICATIONS: As an inpatient, the patient is on Epogen, vancomycin, Prevacid, multivitamin, aspirin, docusate, Zosyn, insulin, valproic acid, ferrous sulfate, albuterol, metoprolol, ibuprofen, Tylenol, bisacodyl, milk of magnesia. ALLERGIES: Heparin . SOCIAL HISTORY: No history of smoking, alcohol, or drug use. FAMILY HISTORY: Noncontributory. REVIEW OF SYSTEMS: Unable to obtain currently. PHYSICAL EXAMINATION: VITAL SIGNS: Temperature of 97.9, T-max of 103, pulse of 89, respiratory rate 18, blood pressure 124/72, O2 saturation of 98%. HEENT: Pupils are equally reactive to light and accommodation. Mouth appears clean without thrush. NECK: Supple. No adenopathy. No JVD. Tracheostomy site appears clean CARDIOVASCULAR: Regular rate and rhythm. No murmurs. LUNGS: Clear to auscultation bilaterally. No crackles. No wheezes. ABDOMEN: Soft and nontender. G-tube site appears clean. EXTREMITIES: No cyanosis, no clubbing, no edema. LABORATORY DATA: White count 13.3, hemoglobin 6.9, hematocrit 23.3, MCV 87, platelet count of 431,000 with neutrophils of 51%. Sodium 135, potassium 5.1, chloride 93, bicarbonate 28, BUN 19, creatinine 0.7, glucose 165. Calcium 9.6. Total bilirubin less than 0.2, AST 15, ALT 7, alkaline phosphatase 91, CK of 16. Troponin less than 0.3. Beta natriuretic peptide 497. Total protein 8.8 and albumin 2.4. UA is showing too numerous to count white cells. Urine culture is growing gram-negative rods, 70,000 to 80,000 colonies. Chest x-ray showing probable trace left-sided pleural effusion, mild left base atelectasis. Abdominal x-ray was unremarkable. ASSESSMENT: 1. This is a 72-year-old lady with history of respiratory failure, seizure disorder, diabetes, and hypertension, who comes in and is found to have a fever and leukocytosis probably secondary to gram-negative urinary tract infection. 2. Diabetes. 3. Hypertension. 4. Seizure disorder. PLAN: 1. Continue vancomycin and Zosyn. 2. We will follow up cultures and adjust antibiotics accordingly. I would like to thank, Dr. Zhou for this consultation. Halie Aguilar M.D. DR: Aislinn JOB#: [id number] CC: Leighton Zhou M.D.
[2017-03-05 20:00] VITALS: BP 126/67
[2017-03-05] MEDS: Epogen (for non ESRD use) SUBQ SCH (21:32)
[2017-03-06] VITALS: BP 108/58
[2017-03-06] MEDS: DuoNeb 0.5-3(2.5)mg/3ml neb HHN SCH ×4 (01:08→20:10)
--- NOTE | 2017-03-06 02:18 | Progress Note ---
DATE: 03/05/2017 SUBJECTIVE: The patient is status post packed red blood cell transfusion. She remains on IV fluids and antibiotics. She is on ventilator support. OBJECTIVE: VITAL SIGNS: Blood pressure 126/67, heart rate 115, respiratory rate 18, and temperature 102 degrees. HEENT: Temporal wasting. Pale conjunctivae. Thin trach secretions. LUNGS: Bilateral rhonchi. HEART: Regular rhythm. Rapid rate. Normal S1 and S2. ABDOMEN: Soft. G-tube is intact. EXTREMITIES: No edema. LABORATORY DATA: Urine culture has less than 100,000 colonies of gram-negative bacillus. White count is 11.8 and hemoglobin 8.4. IMPRESSION: 1. Severe anemia, status post transfusion. 2. Acute myocardial ischemia. 3. Acute diastolic congestive heart failure. 4. Secondary sinus tachycardia. 5. Urinary tract infection with sepsis. 6. Ventilator-dependent respiratory failure. 7. Type 2 diabetes mellitus. 8. History of hypertension. 9. Cerebrovascular disease with dementia and seizure disorder. 10. Lactic acidosis. 11. Severe protein-calorie malnutrition. PLAN: Continue broad-spectrum antibiotics. Ventilator support. Avoid beta agonist. Recheck hemoglobin. May need additional transfusion. Maintain hydration with saline. No diuresis at this time. Protein supplement by feeding tube. Follow up lactic acid levels. Consider beta-simi once hemodynamically more stable. Benedict Gayle M.D. DR: Yao JOB#: [id number] CC:
--- NOTE | 2017-03-06 02:28 | Consultation ---
DATE OF CONSULTATION: 03/04/2017 CARDIOLOGY CONSULTATION: CONSULTING PHYSICIAN: Benedict Gayle M.D. ATTENDING PHYSICIAN: Leighton Zhou M.D. REFERRING PHYSICIAN: Leighton Zhou M.D. REQUESTING PHYSICIAN: Leighton Zhou M.D. REASON FOR CONSULTATION: Elevated natriuretic peptide assay and tachycardia. HISTORY OF PRESENT ILLNESS: This is a 72-year-old female. She has multiple medical problems. She resides at a assisted facility. She was noted to have significant anemia and fevers prompting transfer to the acute care setting. Further concern following her emergency room evaluation was rapid heart rate as well as laboratory suggestion of congestive heart failure. PAST MEDICAL HISTORY: 1. Respiratory failure with tracheostomy. 2. Chronic encephalopathy. 3. Dysphagia with gastrostomy tube. 4. History of aspiration and pneumonia. 5. History of seizures. 6. Cerebrovascular disease with history of cerebrovascular accident and dementia. 7. Hypertension and hypertensive heart disease. 8. Paroxysmal atrial ectopy. 9. Degenerative valve disease. ALLERGIES: Heparin. SOCIAL HISTORY: Negative for smoking, alcohol, or substance abuse. FAMILY HISTORY: Noncontributory. MEDICATIONS: Prior to admission, reviewed and reconciled. REVIEW OF SYSTEMS: Cannot be obtained from the patient due to her underlying dementia. A 20 minutes was spent reviewing the records from prior hospital stays and current assisted home chart. Pertinent data as outlined above. PHYSICAL EXAMINATION: GENERAL: Afebrile, blood pressure is 131/82, pulse 110, and respiratory rate 19. HEENT: Temporal wasting. Pale conjunctivae. Dry mucous membranes. Thin trach secretions. LUNGS: Bilateral breath sounds. Scattered rhonchi. HEART: Regular rhythm. Rapid rate. Normal S1 and S2 with a fourth heart sound and a 1/6 systolic murmur at the base. ABDOMEN: Soft and nontender. G-tube site is intact. EXTREMITIES: With contractures and no edema. NEUROLOGIC: With moderate cognitive impairment. DIAGNOSTIC AND LABORATORY DATA: Chest x-ray reveals atelectasis with small left pleural effusion. Sodium is 135, potassium 5.1, chloride 93, bicarbonate 28, BUN 19, creatinine 0.7, and glucose 165. Albumin is 2.5. Pro-natriuretic peptide is 497. Troponin is less than 0.3. Lactic acid is 3.8. ABG, pH is 7.47, pCO2 40, and pO2 149. White count is 13.3, hemoglobin 6.9, and platelet count 431,000. EKG revealed sinus tachycardia with no acute ST abnormalities. IMPRESSION: 1. Severe anemia. 2. Acute myocardial ischemia. 3. Secondary sinus tachycardia. 4. Acute diastolic congestive heart failure precipitated by above. 5. Urinary tract infection and possible sepsis. 6. Metabolic alkalosis. 7. Cerebrovascular disease with dementia. 8. Ventilator-dependent respiratory failure. 9. Pleural effusion of no hemodynamic significance. PLAN: 1. Panculture. 2. IV antibiotics. 3. Packed red blood cell transfusion. 4. Volume resuscitation. 5. Continue ventilator support. 6. Avoid heparin due to allergy as well as possible bleeding risk. 7. Cardiac monitoring. 8. No role for antiarrhythmics. 9. Consider beta-simi therapy, if persistent tachycardia following correction of severe anemia. Benedict Gayle M.D. DR: Court JOB#: [id number] CC:
[2017-03-06 03:48] LABS: MEAN CORPUSCULAR HEMOGLOBIN 26.8 PG (27.0-31.0); MEAN CORPUSCULAR HGB CONC 31.7 G/DL (32.0-36.0); MEAN CORPUSCULAR VOLUME 85 FL (80-99); PLATELET COUNT 312 K/UL (150-450); RED BLOOD COUNT 2.85 M/UL (4.20-5.40); RED CELL DISTRIBUTION WIDTH 14.2 % (11.6-14.8); WHITE BLOOD COUNT 8.7 K/UL (4.8-10.8)
[2017-03-06 04:00] VITALS: BP 119/73
[2017-03-06 04:15] LABS: ALANINE AMINOTRANSFERASE 6 U/L (3-33); ALBUMIN/GLOBULIN RATIO 0.4 (1.0-2.7); ANION GAP 17 (5-15); ASPARTATE AMINO TRANSFERASE 10 U/L (5-40); CALCIUM 8.1 mg/dL (8.6-10.2); CARBON DIOXIDE 22 mEQ/L (20-30); CHLORIDE 110 mEQ/L (98-107); CREATININE 0.7 mg/dL (0.5-0.9); GLOMERULAR FILTRATION RATE > 60 mL/min (>60); HEMOLYSIS 0; POTASSIUM 3.2 mEQ/L (3.4-4.9); SODIUM 149 mEQ/L (135-145); TOTAL PROTEIN 6.6 g/dL (6.6-8.7)
[2017-03-06 04:23] LABS: REFLEX LACTIC ACID YES OR NO YES
[2017-03-06 05:04] LABS: MAGNESIUM 1.8 mg/dL (1.7-2.5)
[2017-03-06 05:16] LABS: THYROID STIMULATING HORMONE 3.38 uIU/mL (0.300-4.500)
[2017-03-06] MEDS: Piperacillin/Tazobactam 3.375 GM in D5W 110 ML IVPB SCH ×3 (05:51→21:07)
[2017-03-06 08:00] VITALS: BP 110/74
[2017-03-06] MEDS ORDERED: KCl 10% 40mEq/30ml liquid GT ONE (08:00)
--- NOTE | 2017-03-06 08:22 | Pulmonology Progress Note ---
Assessment/Plan Assessment/Plan IMPRESSION: 1. Respiratory failure . 2. Fever/ sepsis 3. Leukocytosis. 4. Tachycardia 5. Profound anemia. 6. Possible gastrointestinal bleed. 7. History of seizure. 8. History of cerebrovascular accident. 9. Tracheostomy. 10. Gastrostomy tube. 11. Chronic encephalopathy. PLAN no change transfuse ventilator iv hydration with caution iv antibiotics and append pending culture results follow up labs no wean adjust ventilator as needed monitor xray supportive measures impression, plan, and exam edited and reviewed in detail care discussed with RN Subjective Allergies: Coded Allergies: HEPARIN (PORCINE) (Verified Allergy, Unknown, 03/31/10) HEPARIN ANALOGUES (Unverified Allergy, Unknown, UNK, 12/18/12) Subjective on the ventilator poor LOC no real change Objective Last 24 Hour Vital Signs Date Time Temp Pulse Resp B/P Pulse Ox O2 Delivery O2 Flow Rate FiO2 03/06/17 07:14 93 18 100 Mechanical Ventilator 03/06/17 07:04 92 18 98 Mechanical Ventilator 03/06/17 07:04 28 03/06/17 07:03 92 18 28 03/06/17 04:38 94 18 28 03/06/17 04:00 97.9 93 18 119/73 96 Mechanical Ventilator 03/06/17 04:00 85 03/06/17 03:10 92 18 28 03/06/17 01:22 91 18 99 Mechanical Ventilator 03/06/17 01:06 91 18 28 03/06/17 01:06 28 03/06/17 01:05 91 18 98 Mechanical Ventilator 03/06/17 00:02 99.9 03/06/17 00:00 108 03/06/17 00:00 28 03/06/17 00:00 101.1 113 18 108/58 96 Mechanical Ventilator 03/05/17 23:22 101 18 28 03/05/17 21:21 106 18 28 03/05/17 20:00 115 03/05/17 20:00 102.0 116 18 126/67 98 Mechanical Ventilator 03/05/17 19:31 28 03/05/17 19:30 111 18 99 Mechanical Ventilator 28 03/05/17 19:29 111 18 28 03/05/17 19:12 111 18 99 Mechanical Ventilator 28 03/05/17 16:49 118 29 28 03/05/17 16:06 85 03/05/17 16:00 98.1 99 18 111/67 97 Mechanical Ventilator 03/05/17 15:16 88 18 28 03/05/17 12:48 88 20 100 Mechanical Ventilator 28 03/05/17 12:33 28 03/05/17 12:33 83 18 28 03/05/17 12:33 84 19 97 Mechanical Ventilator 28 03/05/17 12:15 98.1 86 18 108/63 98 Mechanical Ventilator 03/05/17 11:39 89 03/05/17 10:56 100 18 28 03/05/17 09:44 100 124/72 03/05/17 09:04 100 18 28 Intake and Output 03/05/17 03/06/17 19:00 07:00 Intake Total 1018.75 ml 1165.375 ml Output Total 1550 ml 900 ml Balance -531.25 ml 265.375 ml Intake Free Water 100 ml 200 ml IV Total 618.75 ml 965.375 ml Blood Product 300 ml Output Urine Total 1450 ml 850 ml Stool Total 100 ml 50 ml # Bowel Movements 4 4 Objective GENERAL: A well-developed female, chronically ill. HEENT: Fairly negative. Tracheostomy is midline. Carotids 2+. LUNGS: With adequate breath sounds. some rhonchi. CARDIAC: RRR without murmurs, rubs, or gallops. ABDOMEN: Soft. G-tube in place. No distention. no HSM EXTREMITIES: No cyanosis or clubbing. There is significant contractures. NEUROLOGIC: Poorly responsive. same overall Microbiology Date/Time Source Procedure Growth Status 03/04/17 11:58 Blood Blood Culture - Preliminary NO GROWTH AFTER 24 HOURS Resulted 03/04/17 11:00 Blood Blood Culture - Preliminary NO GROWTH AFTER 24 HOURS Resulted 03/04/17 11:58 Urine,Clean Catch Urine Culture - Preliminary Proteus Mirabilis Resulted Laboratory Tests 03/05/17 14:35: White Blood Count 11.8H, Red Blood Count 3.11L, Hemoglobin 8.4L, Hematocrit 26.6L, Mean Corpuscular Volume 85, Mean Corpuscular Hemoglobin 27.1, Mean Corpuscular Hemoglobin Concent 31.8L, Red Cell Distribution Width 13.9, Platelet Count 344, Mean Platelet Volume 7.9, Neutrophils (%) (Auto) 76.1H, Lymphocytes (%) (Auto) 13.4L, Monocytes (%) (Auto) 8.7, Eosinophils (%) (Auto) 1.1, Basophils (%) (Auto) 0.7 03/06/17 03:11: White Blood Count 8.7, Red Blood Count 2.85L, Hemoglobin 7.6L, Hematocrit 24.1L , Mean Corpuscular Volume 85, Mean Corpuscular Hemoglobin 26.8L, Mean Corpuscular Hemoglobin Concent 31.7L, Red Cell Distribution Width 14.2, Platelet Count 312, Mean Platelet Volume 8.0, Neutrophils (%) (Auto) , Lymphocytes (%) (Auto) , Monocytes (%) (Auto) , Eosinophils (%) (Auto) , Basophils (%) (Auto) , Sodium Level 149H, Potassium Level 3.2L, Chloride Level 110H, Carbon Dioxide Level 22, Anion Gap 17H, Blood Urea Nitrogen 7, Creatinine 0.7, Estimat Glomerular Filtration Rate > 60, Glucose Level 119H, Lactic Acid Level 2.10, Calcium Level 8.1L, Magnesium Level 1.8, Total Bilirubin < 0.2, Aspartate Amino Transf (AST/SGOT) 10, Alanine Aminotransferase (ALT/SGPT) 6, Alkaline Phosphatase 116H, Pro-B-Type Natriuretic Peptide 7177H, Total Protein 6.6, Albumin 1.9L, Globulin 4.7, Albumin/Globulin Ratio 0.4L, Thyroid Stimulating Hormone (TSH) 3.380 Current Medications Medications (Trade) Dose Ordered Sig/Robert Route PRN Reason Start Time Stop Time Status Last Admin Dose Admin Acetaminophen (Tylenol) 650 mg Q4H PRN GT Prn Headache/Temp > 101 03/04/17 17:45 04/03/17 17:44 03/05/17 23:32 Albuterol/ Ipratropium (DuoNeb 0.5-3(2.5)mg/3ml) 3 ml Q6HRT HHN 03/04/17 19:00 03/09/17 18:59 03/06/17 07:04 Aspirin (ASA) 81 mg DAILY GT 03/05/17 09:00 04/04/17 08:59 03/05/17 09:44 Bisacodyl (Dulcolax) 10 mg DAILYPRN PRN RECTAL Constipation 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 03/04/17 17:45 04/03/17 17:44 Docusate Sodium 250 mg 250 mg TWICE A DAY ORAL 03/05/17 09:00 04/04/17 08:59 Epoetin Ilia (Procrit (for non ESRD use)) 7,000 units MON-FRI-FRI SUBQ 03/05/17 21:00 04/04/17 20:59 03/05/17 21:32 Ferrous Sulfate (Feosol) 300 mg BID GT 03/04/17 19:00 04/03/17 18:59 03/05/17 18:41 Ibuprofen (Children's Advil) 400 mg TID PRN GT For Pain 03/04/17 18:45 04/03/17 18:44 03/04/17 19:12 Insulin Detemir (Levemir) 5 units BID SUBQ 03/04/17 21:00 04/03/17 20:59 03/05/17 18:45 Lansoprazole (Prevacid) 30 mg DAILY GT 03/05/17 09:00 04/04/17 08:59 03/05/17 09:44 Magnesium Hydroxide (Mom) 30 ml DAILYPRN PRN GT Constipation 03/04/17 17:45 04/03/17 17:44 Metoprolol Tartrate 12.5 mg 12.5 mg BID GT 03/06/17 09:00 04/05/17 08:59 Multivitamins (Multivitamins W/ Minerals 15ml Liquid) 15 ml DAILY GT 03/05/17 09:00 04/04/17 08:59 03/05/17 09:44 Piperacillin Sod/ Tazobactam Sod/ Dextrose (Zosyn/D5W) 110 ml @ 27.5 mls/hr EVERY 8 HOURS IVPB 03/04/17 22:00 03/09/17 21:59 03/06/17 05:51 Sodium Chloride (0.45% NS 1000ml) 1,000 ml @ 75 mls/hr [id number] IV 03/06/17 08:00 04/05/17 07:59 Valproic Acid 750 mg 750 mg EVERY 12 HOURS NG 03/04/17 21:00 04/03/17 20:59 03/05/17 21:31 Vancomycin HCl (Vanco rx to dose) 1 ea DAILY PRN MISC Per rx protocol 03/04/17 18:00 04/03/17 17:59 Vancomycin HCl/ Dextrose (Vancomycin/D5W) 275 ml @ 183.708 mls/hr Q24H IVPB 03/05/17 12:00 03/10/17 11:59 03/05/17 09:43 HAFSA PRESTON March 06, 2017 08:22
--- NOTE | 2017-03-06 08:39 | Cardiology Report ---
APPROVED REPORT EKG Measurement Heart [id number] Sinus tachycardia Otherwise normal ECG
[2017-03-06] MEDS: Ferrous Sulfate 300 MG/5 ML UDC GT SCH ×2 (09:00→18:03)
[2017-03-06] MEDS: Multivitamins W/Minerals 15 ML UDC GT SCH (09:00)
[2017-03-06] MEDS: Aspirin Baby 81mg GT SCH (09:28)
[2017-03-06] MEDS: Metoprolol 25mg tab GT SCH ×2 (09:28→18:04)
[2017-03-06] MEDS: Docusate 100mg/10ml Liq ORAL SCH ×2 (09:29→18:03)
[2017-03-06] MEDS: Valproic Acid 250mg/5ml Liquid NG SCH ×2 (09:30→21:08)
[2017-03-06] MEDS: Levemir Flexpen SUBQ SCH ×2 (09:33→18:10)
[2017-03-06 12:06] VITALS: BP 114/83
--- NOTE | 2017-03-06 13:19 | Infectious Diseases Prog Note ---
Assessment/Plan Assessment/Plan A: Sepsis Proteus UTI Anemia VDRF DM HPN P: continue Zosyn & Vancomycin will f/u cultures Subjective ROS Limited/Unobtainable: Yes Constitutional: Reports: fever, other - [id number], no fever today Allergies: Coded Allergies: HEPARIN (PORCINE) (Verified Allergy, Unknown, 03/31/10) HEPARIN ANALOGUES (Unverified Allergy, Unknown, UNK, 12/18/12) Objective Vital Signs Last 24 Hour Vital Signs Date Time Temp Pulse Resp B/P Pulse Ox O2 Delivery O2 Flow Rate FiO2 03/06/17 13:04 28 03/06/17 13:04 75 18 100 Mechanical Ventilator 03/06/17 13:03 76 18 28 03/06/17 12:06 97.8 84 18 114/83 99 Mechanical Ventilator 03/06/17 10:52 94 18 28 03/06/17 09:28 90 18 28 03/06/17 09:28 96 110/74 03/06/17 08:00 98.2 96 18 110/74 98 Mechanical Ventilator 03/06/17 08:00 108 03/06/17 07:14 93 18 100 Mechanical Ventilator 03/06/17 07:04 92 18 98 Mechanical Ventilator 03/06/17 07:04 28 03/06/17 07:03 92 18 28 03/06/17 04:38 94 18 28 03/06/17 04:00 97.9 93 18 119/73 96 Mechanical Ventilator 03/06/17 04:00 85 03/06/17 03:10 92 18 28 03/06/17 01:22 91 18 99 Mechanical Ventilator 03/06/17 01:06 91 18 28 03/06/17 01:06 28 03/06/17 01:05 91 18 98 Mechanical Ventilator 03/06/17 00:02 99.9 03/06/17 00:00 108 03/06/17 00:00 28 03/06/17 00:00 101.1 113 18 108/58 96 Mechanical Ventilator 03/05/17 23:22 101 18 28 03/05/17 21:21 106 18 28 03/05/17 20:00 115 03/05/17 20:00 102.0 116 18 126/67 98 Mechanical Ventilator 03/05/17 19:31 28 03/05/17 19:30 111 18 99 Mechanical Ventilator 17 19:29 111 18 28 03/05/17 19:12 111 18 99 Mechanical Ventilator 28 03/05/17 16:49 118 29 28 03/05/17 16:06 85 03/05/17 16:00 98.1 99 18 111/67 97 Mechanical Ventilator 03/05/17 15:16 88 18 28 Height (Feet): 5 Height (Inches): 2.00 Weight (Pounds): 150 HEENT: status post trach Respiratory/Chest: rhonchi - bilaterally Cardiovascular: normal rate Abdomen: soft, non tender, other - GT feeding Genitourinary: other - Watkins catheter Neurologic/Psychiatric: other - obtunded Microbiology Date/Time Source Procedure Growth Status 03/04/17 11:58 Blood Blood Culture - Preliminary NO GROWTH AFTER 24 HOURS Resulted 03/04/17 11:00 Blood Blood Culture - Preliminary NO GROWTH AFTER 24 HOURS Resulted 03/04/17 11:58 Urine,Clean Catch Urine Culture - Preliminary Proteus Mirabilis Resulted Laboratory Tests Test 03/05/17 14:35 03/06/17 03:11 03/06/17 08:40 White Blood Count 11.8 K/UL (4.8-10.8) H 8.7 K/UL (4.8-10.8) Red Blood Count 3.11 M/UL (4.20-5.40) L 2.85 M/UL (4.20-5.40) L Hemoglobin 8.4 G/DL (12.0-16.0) L 7.6 G/DL (12.0-16.0) L Hematocrit 26.6 % (37.0-47.0) L 24.1 % (37.0-47.0) L Mean Corpuscular Volume 85 FL (80-99) 85 FL (80-99) Mean Corpuscular Hemoglobin 27.1 PG (27.0-31.0) 26.8 PG (27.0-31.0) L Mean Corpuscular Hemoglobin Concent 31.8 G/DL (32.0-36.0) L 31.7 G/DL (32.0-36.0) L Red Cell Distribution Width 13.9 % (11.6-14.8) 14.2 % (11.6-14.8) Platelet Count 344 K/UL (150-450) 312 K/UL (150-450) Mean Platelet Volume 7.9 FL (6.5-10.1) 8.0 FL (6.5-10.1) Neutrophils (%) (Auto) 76.1 % (45.0-75.0) H % (45.0-75.0) Lymphocytes (%) (Auto) 13.4 % (20.0-45.0) L % (20.0-45.0) Monocytes (%) (Auto) 8.7 % (1.0-10.0) % (1.0-10.0) Eosinophils (%) (Auto) 1.1 % (0.0-3.0) % (0.0-3.0) Basophils (%) (Auto) 0.7 % (0.0-2.0) % (0.0-2.0) Sodium Level 149 mEQ/L (135-145) H Potassium Level 3.2 mEQ/L (3.4-4.9) L Chloride Level 110 mEQ/L (98-107) H Carbon Dioxide Level 22 mEQ/L (20-30) Anion Gap 17 (5-15) H Blood Urea Nitrogen 7 mg/dL (7-23) Creatinine 0.7 mg/dL (0.5-0.9) Estimat Glomerular Filtration Rate > 60 mL/min (>60) Glucose Level 119 mg/dL (74-106) H Lactic Acid Level 2.10 mmol/L (0.66-2.22) 0.90 mmol/L (0.66-2.22) Calcium Level 8.1 mg/dL (8.6-10.2) L Magnesium Level 1.8 mg/dL (1.7-2.5) Total Bilirubin < 0.2 mg/dL (0.0-1.2) Aspartate Amino Transf (AST/SGOT) 10 U/L (5-40) Alanine Aminotransferase (ALT/SGPT) 6 U/L (3-33) Alkaline Phosphatase 116 U/L (35-104) H Pro-B-Type Natriuretic Peptide 7177 pg/mL (0-125) H Total Protein 6.6 g/dL (6.6-8.7) Albumin 1.9 g/dL (3.5-5.2) L Globulin 4.7 g/dL Albumin/Globulin Ratio 0.4 (1.0-2.7) L Thyroid Stimulating Hormone (TSH) 3.380 uIU/mL (0.300-4.500) Current Medications Medications (Trade) Dose Ordered Sig/Robert Route PRN Reason Start Time Stop Time Status Last Admin Dose Admin Acetaminophen (Tylenol) 650 mg Q4H PRN GT Prn Headache/Temp > 101 03/04/17 17:45 04/03/17 17:44 03/05/17 23:32 Albuterol/ Ipratropium (DuoNeb 0.5-3(2.5)mg/3ml) 3 ml Q6HRT HHN 03/04/17 19:00 03/09/17 18:59 03/06/17 13:03 Aspirin (ASA) 81 mg DAILY GT 03/05/17 09:00 04/04/17 08:59 03/06/17 09:28 Bisacodyl (Dulcolax) 10 mg DAILYPRN PRN RECTAL Constipation 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 03/04/17 17:45 04/03/17 17:44 Docusate Sodium 250 mg 250 mg TWICE A DAY ORAL 03/05/17 09:00 04/04/17 08:59 03/06/17 09:29 Epoetin Ilia (Procrit (for non ESRD use)) 7,000 units FRI-FRI-FRI SUBQ 03/05/17 21:00 04/04/17 20:59 03/05/17 21:32 Ferrous Sulfate (Feosol) 300 mg BID GT 03/04/17 19:00 04/03/17 18:59 03/06/17 09:00 Ibuprofen (Children's Advil) 400 mg TID PRN GT For Pain 03/04/17 18:45 04/03/17 18:44 03/04/17 19:12 Insulin Detemir (Levemir) 5 units BID SUBQ 03/04/17 21:00 04/03/17 20:59 03/06/17 09:33 Lansoprazole (Prevacid) 30 mg DAILY GT 03/05/17 09:00 04/04/17 08:59 03/06/17 09:29 Magnesium Hydroxide (Mom) 30 ml DAILYPRN PRN GT Constipation 03/04/17 17:45 04/03/17 17:44 Metoprolol Tartrate 12.5 mg 12.5 mg BID GT 03/06/17 09:00 04/05/17 08:59 03/06/17 09:28 Multivitamins (Multivitamins W/ Minerals 15ml Liquid) 15 ml DAILY GT 03/05/17 09:00 04/04/17 08:59 03/06/17 09:00 Piperacillin Sod/ Tazobactam Sod/ Dextrose (Zosyn/D5W) 110 ml @ 27.5 mls/hr EVERY 8 HOURS IVPB 03/04/17 22:00 03/09/17 21:59 03/06/17 05:51 Sodium Chloride (0.45% NS 1000ml) 1,000 ml @ 75 mls/hr [id number] IV 03/06/17 08:00 04/05/17 07:59 03/06/17 09:40 Valproic Acid 750 mg 750 mg EVERY 12 HOURS NG 03/04/17 21:00 04/03/17 20:59 03/06/17 09:30 Vancomycin HCl (Vanco rx to dose) 1 ea DAILY PRN MISC Per rx protocol 03/04/17 18:00 04/03/17 17:59 Vancomycin HCl/ Dextrose (Vancomycin/D5W) 275 ml @ 183.708 mls/hr Q24H IVPB 03/05/17 12:00 03/10/17 11:59 03/05/17 09:43 RADHA BURNETT March 06, 2017 13:19
--- NOTE | 2017-03-06 13:45 | General Progress Note ---
Assessment/Plan Problem List: (1) Fever ICD Codes: R50.9 - Fever, unspecified SNOMED: 705933596 (2) Lactic acid acidosis ICD Codes: E87.2 - Acidosis SNOMED: 09952076 (3) Seizure disorder ICD Codes: G40.909 - Epilepsy, unspecified, not intractable, without status epilepticus SNOMED: 302488665 (4) Encephalopathies ICD Codes: G93.40 - Encephalopathies SNOMED: 92702944 (5) Sepsis ICD Codes: A41.9 - Sepsis SNOMED: 25071808 (6) Pneumonia ICD Codes: J18.9 - Pneumonia, unspecified organism SNOMED: 681668074 (7) UTI (urinary tract infection) ICD Codes: N39.0 - Urinary tract infection, site not specified SNOMED: 53592862 Qualifiers: Qualified Codes: N30.00 - Acute cystitis without hematuria Status: stable, progressing Assessment/Plan transfuse. check stool ob. monitor for bleeding. iv abx per id IVF adjusted. monitor lytes wound care GI eval for leaking gt Subjective ROS Limited/Unobtainable: Yes Constitutional: Reports: malaise, weakness HEENT: Reports: no symptoms Cardiovascular: Reports: no symptoms Respiratory: Reports: shortness of breath, sputum Gastrointestinal/Abdominal: Reports: difficulty swallowing Genitourinary: Reports: no symptoms Neurologic/Psychiatric: Reports: pre-existing deficit, seizure Endocrine: Reports: no symptoms Hematologic/Lymphatic: Reports: anemia Allergies: Coded Allergies: HEPARIN (PORCINE) (Verified Allergy, Unknown, 03/31/10) HEPARIN ANALOGUES (Unverified Allergy, Unknown, UNK, 12/18/12) All Systems: reviewed and negative except above Subjective fever better. +Ucx noted. decrease h/h. no bleeding noted. on iv abx and ivf. high sodium noted. Objective Last 24 Hour Vital Signs Date Time Temp Pulse Resp B/P Pulse Ox O2 Delivery O2 Flow Rate FiO2 03/06/17 13:04 28 03/06/17 13:04 75 18 100 Mechanical Ventilator 03/06/17 13:03 76 18 28 03/06/17 12:06 97.8 84 18 114/83 99 Mechanical Ventilator 03/06/17 10:52 94 18 28 03/06/17 09:28 90 18 28 03/06/17 09:28 96 110/74 03/06/17 08:00 98.2 96 18 110/74 98 Mechanical Ventilator 28 03/06/17 08:00 108 03/06/17 07:14 93 18 100 Mechanical Ventilator 28 03/06/17 07:04 92 18 98 Mechanical Ventilator 28 03/06/17 07:04 28 03/06/17 07:03 92 18 28 03/06/17 04:38 94 18 28 03/06/17 04:00 97.9 93 18 119/73 96 Mechanical Ventilator 03/06/17 04:00 85 03/06/17 03:10 92 18 28 03/06/17 01:22 91 18 99 Mechanical Ventilator 28 03/06/17 01:06 91 18 28 03/06/17 01:06 28 03/06/17 01:05 91 18 98 Mechanical Ventilator 28 03/06/17 00:02 99.9 03/06/17 00:00 108 03/06/17 00:00 28 03/06/17 00:00 101.1 113 18 108/58 96 Mechanical Ventilator 03/05/17 23:22 101 18 28 03/05/17 21:21 106 18 28 03/05/17 20:00 115 03/05/17 20:00 102.0 116 18 126/67 98 Mechanical Ventilator 03/05/17 19:31 28 03/05/17 19:30 111 18 99 Mechanical Ventilator 28 03/05/17 19:29 111 18 28 03/05/17 19:12 111 18 99 Mechanical Ventilator 28 03/05/17 16:49 118 29 28 03/05/17 16:06 85 03/05/17 16:00 98.1 99 18 111/67 97 Mechanical Ventilator 03/05/17 15:16 88 18 28 Intake and Output 03/05/17 03/06/17 19:00 07:00 Intake Total 1018.75 ml 1165.375 ml Output Total 1550 ml 900 ml Balance -531.25 ml 265.375 ml Intake Free Water 100 ml 200 ml IV Total 618.75 ml 965.375 ml Blood Product 300 ml Output Urine Total 1450 ml 850 ml Stool Total 100 ml 50 ml # Bowel Movements 4 4 Laboratory Tests 03/05/17 14:35: White Blood Count 11.8H, Red Blood Count 3.11L, Hemoglobin 8.4L, Hematocrit 26.6L, Mean Corpuscular Volume 85, Mean Corpuscular Hemoglobin 27.1, Mean Corpuscular Hemoglobin Concent 31.8L, Red Cell Distribution Width 13.9, Platelet Count 344, Mean Platelet Volume 7.9, Neutrophils (%) (Auto) 76.1H, Lymphocytes (%) (Auto) 13.4L, Monocytes (%) (Auto) 8.7, Eosinophils (%) (Auto) 1.1, Basophils (%) (Auto) 0.7 03/06/17 03:11: White Blood Count 8.7, Red Blood Count 2.85L, Hemoglobin 7.6L, Hematocrit 24.1L , Mean Corpuscular Volume 85, Mean Corpuscular Hemoglobin 26.8L, Mean Corpuscular Hemoglobin Concent 31.7L, Red Cell Distribution Width 14.2, Platelet Count 312, Mean Platelet Volume 8.0, Neutrophils (%) (Auto) , Lymphocytes (%) (Auto) , Monocytes (%) (Auto) , Eosinophils (%) (Auto) , Basophils (%) (Auto) , Sodium Level 149H, Potassium Level 3.2L, Chloride Level 110H, Carbon Dioxide Level 22, Anion Gap 17H, Blood Urea Nitrogen 7, Creatinine 0.7, Estimat Glomerular Filtration Rate > 60, Glucose Level 119H, Lactic Acid Level 2.10, Calcium Level 8.1L, Magnesium Level 1.8, Total Bilirubin < 0.2, Aspartate Amino Transf (AST/SGOT) 10, Alanine Aminotransferase (ALT/SGPT) 6, Alkaline Phosphatase 116H, Pro-B-Type Natriuretic Peptide 7177H, Total Protein 6.6, Albumin 1.9L, Globulin 4.7, Albumin/Globulin Ratio 0.4L, Thyroid Stimulating Hormone (TSH) 3.380 03/06/17 08:40: Lactic Acid Level 0.90 Height (Feet): 5 Height (Inches): 2.00 Weight (Pounds): 150 General Appearance: WD/WN, lethargic, confused Neck: supple Cardiovascular: normal rate Respiratory/Chest: lungs clear Abdomen: normal bowel sounds, non tender, soft, no organomegaly Edema: no edema noted Arm (L), no edema noted Arm (R), no edema noted Leg (L), no edema noted Leg (R), no edema noted Pedal (L), no edema noted Pedal (R), no edema noted Generalized Neurologic: motor weakness, disoriented Skin: normal pigmentation ALBER JUDGE March 06, 2017 13:45
[2017-03-06] MEDS: Vancomycin 1gm in D5W 275ml IVPB SCH (15:21)
[2017-03-06 16:00] VITALS: BP 152/98
--- NOTE | 2017-03-06 17:19 | Progress Note ---
DATE: 03/06/2017 SUBJECTIVE: The patient remains on ventilator support. She is poorly responsive. OBJECTIVE: VITAL SIGNS: Blood pressure 119/73, pulse 95, respiratory rate 18, and afebrile. Monitored rhythm, sinus. T-max 102. LUNGS: Bilateral breath sounds with rhonchi. HEART: Regular rhythm and rate. Normal S1 and S2 with a fourth heart sound. A 1/6 systolic murmur at apex. ABDOMEN: Soft. EXTREMITIES: Trace edema. LABORATORY STUDIES: White count 8.7 and hemoglobin 7.6. Potassium 3.2, sodium 149, bicarbonate 22, BUN 7, and creatinine 0.7. Pro-natriuretic peptide over 7000. Lactic acid now is normal. Magnesium 1.8. IMPRESSION: 1. Acute myocardial ischemia. 2. Severe anemia. 3. Sinus tachycardia. 4. Acute diastolic congestive heart failure. 5. Urinary tract infection with sepsis. 6. Ventilator-dependent respiratory failure. 7. Dehydration. 8. Hypernatremia. 9. Hypokalemia. 10. Hyperchloremia. PLAN: 1. Packed red blood cell transfusion. 2. Antimicrobials. 3. Hypotonic IV fluids. 4. Potassium replacement. 5. Continue iron and Epogen. 6. Titrate beta-simi. 7. Cautious use of antiplatelet therapy. 8. Monitor for signs of acute blood loss. Benedict Gayle M.D. DR: BASIA JOB#: [id number] CC:
[2017-03-06 20:00] VITALS: BP 141/86
[2017-03-07] VITALS: BP 143/94
[2017-03-07] MEDS: DuoNeb 0.5-3(2.5)mg/3ml neb HHN SCH ×4 (01:29→19:10)
[2017-03-07 03:48] VITALS: BP 148/85
[2017-03-07] MEDS: Piperacillin/Tazobactam 3.375 GM in D5W 110 ML IVPB SCH ×3 (05:30→21:33)
[2017-03-07 05:31] LABS: MEAN CORPUSCULAR HEMOGLOBIN 27.9 PG (27.0-31.0); MEAN CORPUSCULAR HGB CONC 32.3 G/DL (32.0-36.0); MEAN CORPUSCULAR VOLUME 86 FL (80-99); MEAN PLATELET VOLUME 7.5 FL (6.5-10.1); PLATELET COUNT 312 K/UL (150-450); RED CELL DISTRIBUTION WIDTH 14.3 % (11.6-14.8); WHITE BLOOD COUNT 6.2 K/UL (4.8-10.8)
[2017-03-07 06:38] LABS: BASOPHILS % (AUTO) 1.3 % (0.0-2.0); EOSINOPHILS % (AUTO) 2.4 % (0.0-3.0); LYMPHOCYTES % (AUTO) 11.6 % (20.0-45.0); MEAN CORPUSCULAR HEMOGLOBIN 27.6 PG (27.0-31.0); MEAN CORPUSCULAR HGB CONC 32.1 G/DL (32.0-36.0); MEAN CORPUSCULAR VOLUME 86 FL (80-99); MEAN PLATELET VOLUME 7.8 FL (6.5-10.1); MONOCYTES % (AUTO) 9.2 % (1.0-10.0); NEUTROPHILS % (AUTO) 75.6 % (45.0-75.0); PLATELET COUNT 330 K/UL (150-450); RED BLOOD COUNT 3.59 M/UL (4.20-5.40); RED CELL DISTRIBUTION WIDTH 13.8 % (11.6-14.8); WHITE BLOOD COUNT 12.3 K/UL (4.8-10.8)
[2017-03-07 07:09] LABS: ALANINE AMINOTRANSFERASE 5 U/L (3-33); ALBUMIN/GLOBULIN RATIO 0.4 (1.0-2.7); ANION GAP 15 (5-15); ASPARTATE AMINO TRANSFERASE 10 U/L (5-40); CALCIUM 8.3 mg/dL (8.6-10.2); CARBON DIOXIDE 24 mEQ/L (20-30); CHLORIDE 107 mEQ/L (98-107); CREATININE 0.6 mg/dL (0.5-0.9); GLOMERULAR FILTRATION RATE > 60 mL/min (>60); HEMOLYSIS 11; MAGNESIUM 1.6 mg/dL (1.7-2.5); SODIUM 146 mEQ/L (135-145); TOTAL PROTEIN 7.3 g/dL (6.6-8.7)
[2017-03-07 07:44] VITALS: BP 150/96
--- NOTE | 2017-03-07 08:28 | Pulmonology Progress Note ---
Assessment/Plan Assessment/Plan IMPRESSION: 1. Respiratory failure . 2. Fever/ sepsis 3. Leukocytosis. 4. Tachycardia 5. Profound anemia. 6. Possible gastrointestinal bleed. 7. History of seizure. 8. History of cerebrovascular accident. 9. Tracheostomy. 10. Gastrostomy tube. 11. Chronic encephalopathy. PLAN no change in ventilator transfused ventilator as is; suction PRN iv hydration with caution replace K iv antibiotics and adjust follow up labs no wean at present monitor for change GI clearance supportive measures impression, plan, and exam edited and reviewed in detail care discussed with RN Subjective ROS Limited/Unobtainable: Yes Allergies: Coded Allergies: HEPARIN (PORCINE) (Verified Allergy, Unknown, 03/31/10) HEPARIN ANALOGUES (Unverified Allergy, Unknown, UNK, 12/18/12) Subjective on the ventilator poor LOC no real change all noted and reviewed in detail Objective Last 24 Hour Vital Signs Date Time Temp Pulse Resp B/P Pulse Ox O2 Delivery O2 Flow Rate FiO2 03/07/17 07:44 99.0 97 18 150/96 100 Mechanical Ventilator 03/07/17 06:41 94 18 03/07/17 06:35 95 18 100 Mechanical Ventilator 03/07/17 06:25 28 03/07/17 06:25 95 18 100 Mechanical Ventilator 03/07/17 05:19 99 18 03/07/17 04:00 105 03/07/17 04:00 03/07/17 03:48 100.6 106 18 148/85 100 Mechanical Ventilator 03/07/17 03:20 85 19 28 03/07/17 01:34 101 20 100 Mechanical Ventilator 03/07/17 01:27 28 03/07/17 01:27 98 20 100 Mechanical Ventilator 03/07/17 01:26 99 22 28 03/07/17 00:00 28 03/07/17 00:00 98.7 96 18 143/94 100 Mechanical Ventilator 03/07/17 00:00 92 03/06/17 23:44 81 18 28 03/06/17 20:38 84 18 28 03/06/17 20:25 85 18 100 Mechanical Ventilator 03/06/17 20:12 28 03/06/17 20:12 86 18 03/06/17 20:11 84 18 100 Mechanical Ventilator 03/06/17 20:00 98.1 85 18 141/86 100 Mechanical Ventilator 28 03/06/17 20:00 79 03/06/17 18:04 96 152/98 03/06/17 17:02 96 21 28 03/06/17 16:00 97.9 97 20 152/98 100 Mechanical Ventilator 28 03/06/17 16:00 87 03/06/17 15:00 82 18 28 03/06/17 13:15 84 18 100 Mechanical Ventilator 28 03/06/17 13:04 28 03/06/17 13:04 75 18 100 Mechanical Ventilator 28 03/06/17 13:03 76 18 28 03/06/17 12:06 97.8 84 18 114/83 99 Mechanical Ventilator 28 03/06/17 12:00 76 03/06/17 10:52 94 18 28 03/06/17 09:28 90 18 28 03/06/17 09:28 96 110/74 Intake and Output 03/06/17 03/07/17 19:00 07:00 Intake Total 1454.916 ml 1155.541 ml Output Total 875 ml 1225 ml Balance 579.916 ml -69.459 ml Intake Free Water 250 ml 300 ml IV Total 1204.916 ml 855.541 ml Output Urine Total 850 ml 1200 ml Stool Total 25 ml 25 ml # Bowel Movements 3 3 Objective GENERAL: A well-developed female, chronically ill. HEENT: Fairly negative. Tracheostomy is midline. Carotids 2+. LUNGS: With adequate breath sounds. minimal rhonchi. CARDIAC: RRR without murmurs, rubs, or gallops. ABDOMEN: Soft. G-tube in place. No distention. no HSM EXTREMITIES: No cyanosis or clubbing. There is significant contractures. NEUROLOGIC: Poorly responsive. same overall reviewed and edited Microbiology Date/Time Source Procedure Growth Status 03/04/17 11:58 Blood Blood Culture - Preliminary NO GROWTH AFTER 48 HOURS Resulted 03/04/17 11:00 Blood Blood Culture - Preliminary NO GROWTH AFTER 48 HOURS Resulted 03/04/17 11:58 Urine,Clean Catch Urine Culture - Preliminary Proteus Mirabilis Resulted 03/05/17 02:10 Sacral Swab Gram Stain - Final Resulted 03/05/17 02:10 Wound Culture - Preliminary Staphylococcus Aureus Gram Negative Vaughn Resulted Laboratory Tests 03/06/17 08:40: Lactic Acid Level 0.90 03/07/17 03:15: White Blood Count 6.2, Red Blood Count 1.90L, Hemoglobin 5.3#*L, Hematocrit 16.4 #L, Mean Corpuscular Volume 86, Mean Corpuscular Hemoglobin 27.9, Mean Corpuscular Hemoglobin Concent 32.3, Red Cell Distribution Width 14.3, Platelet Count 312, Mean Platelet Volume 7.5, Neutrophils (%) (Auto) , Lymphocytes (%) ( Auto) , Monocytes (%) (Auto) , Eosinophils (%) (Auto) , Basophils (%) (Auto) , Neutrophils % (Manual) [Pending], Lymphocytes % (Manual) [Pending], Platelet Estimate [Pending], Platelet Morphology [Pending] 03/07/17 06:15: White Blood Count 12.3#H, Red Blood Count 3.59L, Hemoglobin 9.9#L, Hematocrit 30.8#L, Mean Corpuscular Volume 86, Mean Corpuscular Hemoglobin 27.6, Mean Corpuscular Hemoglobin Concent 32.1, Red Cell Distribution Width 13.8, Platelet Count 330, Mean Platelet Volume 7.8, Neutrophils (%) (Auto) 75.6H, Lymphocytes ( %) (Auto) 11.6L, Monocytes (%) (Auto) 9.2, Eosinophils (%) (Auto) 2.4, Basophils (%) (Auto) 1.3, Stool Occult Blood Negative, Sodium Level 146H, Potassium Level 3.0L, Chloride Level 107, Carbon Dioxide Level 24, Anion Gap 15 , Blood Urea Nitrogen 5L, Creatinine 0.6, Estimat Glomerular Filtration Rate > 60, Glucose Level 150H, Calcium Level 8.3L, Magnesium Level 1.6L, Total Bilirubin 0.2, Aspartate Amino Transf (AST/SGOT) 10, Alanine Aminotransferase ( ALT/SGPT) 5, Alkaline Phosphatase 100, Total Protein 7.3, Albumin 2.2L, Globulin 5.1, Albumin/Globulin Ratio 0.4L Current Medications Medications (Trade) Dose Ordered Sig/Robert Route PRN Reason Start Time Stop Time Status Last Admin Dose Admin Acetaminophen (Tylenol) 650 mg Q4H PRN GT Prn Headache/Temp > 101 03/04/17 17:45 04/03/17 17:44 03/05/17 23:32 Albuterol/ Ipratropium (DuoNeb 0.5-3(2.5)mg/3ml) 3 ml Q6HRT HHN 03/04/17 19:00 03/09/17 18:59 03/07/17 06:40 Aspirin (ASA) 81 mg DAILY GT 03/05/17 09:00 04/04/17 08:59 03/06/17 09:28 Bisacodyl (Dulcolax) 10 mg DAILYPRN PRN RECTAL Constipation 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 03/04/17 17:45 04/03/17 17:44 Docusate Sodium 250 mg 250 mg TWICE A DAY ORAL 03/05/17 09:00 04/04/17 08:59 03/06/17 18:03 Epoetin Ilia (Procrit (for non ESRD use)) 7,000 units FRI-FRI-FRI SUBQ 03/05/17 21:00 04/04/17 20:59 03/05/17 21:32 Ferrous Sulfate (Feosol) 300 mg BID GT 03/04/17 19:00 04/03/17 18:59 03/06/17 18:03 Ibuprofen (Children's Advil) 400 mg TID PRN GT For Pain 03/04/17 18:45 04/03/17 18:44 03/04/17 19:12 Insulin Detemir (Levemir) 5 units BID SUBQ 03/04/17 21:00 04/03/17 20:59 03/06/17 18:10 Lansoprazole (Prevacid) 30 mg DAILY GT 03/05/17 09:00 04/04/17 08:59 03/06/17 09:29 Magnesium Hydroxide (Mom) 30 ml DAILYPRN PRN GT Constipation 03/04/17 17:45 04/03/17 17:44 Metoprolol Tartrate 12.5 mg 12.5 mg BID GT 03/06/17 09:00 04/05/17 08:59 03/06/17 18:04 Multivitamins (Multivitamins W/ Minerals 15ml Liquid) 15 ml DAILY GT 03/05/17 09:00 04/04/17 08:59 03/06/17 09:00 Piperacillin Sod/ Tazobactam Sod/ Dextrose (Zosyn/D5W) 110 ml @ 27.5 mls/hr EVERY 8 HOURS IVPB 03/04/17 22:00 03/09/17 21:59 03/07/17 05:30 Sodium Chloride (0.45% NS 1000ml) 1,000 ml @ 75 mls/hr [id number] IV 03/06/17 08:00 04/05/17 07:59 03/07/17 05:46 Valproic Acid 750 mg 750 mg EVERY 12 HOURS NG 03/04/17 21:00 04/03/17 20:59 03/06/17 21:08 Vancomycin HCl (Vanco rx to dose) 1 ea DAILY PRN MISC Per rx protocol 03/04/17 18:00 04/03/17 17:59 Vancomycin HCl/ Dextrose (Vancomycin/D5W) 275 ml @ 183.708 mls/hr Q24H IVPB 03/05/17 12:00 03/10/17 11:59 03/06/17 15:21 HAFSA PRESTON March 07, 2017 08:28
[2017-03-07] MEDS: Levemir Flexpen SUBQ SCH ×2 (08:50→18:50)
[2017-03-07] MEDS: Valproic Acid 250mg/5ml Liquid NG SCH ×2 (08:52→20:44)
[2017-03-07] MEDS: Ferrous Sulfate 300 MG/5 ML UDC GT SCH ×2 (08:52→18:52)
[2017-03-07] MEDS: Aspirin Baby 81mg GT SCH (08:52)
[2017-03-07] MEDS: Docusate 100mg/10ml Liq ORAL SCH ×2 (08:53→18:00)
[2017-03-07] MEDS: Metoprolol 25mg tab GT SCH ×2 (08:53→18:52)
[2017-03-07] MEDS: Multivitamins W/Minerals 15 ML UDC GT SCH (08:57)
[2017-03-07 11:31] VITALS: BP 119/76
[2017-03-07 11:41] LABS: ANISOCYTOSIS 1+; BAND NEUTROPHILS % (MANUAL) 0 % (0-8); BASOPHILS % (MANUAL) 0 % (0-2); EOSINOPHILS % (MANUAL) 1 % (0-3); HYPOCHROMASIA 1+; LYMPHOCYTES % (MANUAL) 20 % (20-45); NEUTROPHILS % (MANUAL) 76 % (45-75); PLATELET ESTIMATE ADEQUATE; PLATELET MORPHOLOGY NORMAL; TOTAL CELLS COUNTED 100
[2017-03-07] MEDS: Vancomycin 1gm in D5W 275ml IVPB SCH (13:03)
--- NOTE | 2017-03-07 13:07 | Infectious Diseases Prog Note ---
Assessment/Plan Assessment/Plan antibiotics : vancomycin iv, zosyn A 1. proteus UTI 2. DM 3. HTN 4. CVA P 1. continue zosyn 2. d/c iv vancomycin 3. will follow up cultures Subjective ROS Limited/Unobtainable: Yes Allergies: Coded Allergies: HEPARIN (PORCINE) (Verified Allergy, Unknown, 03/31/10) HEPARIN ANALOGUES (Unverified Allergy, Unknown, UNK, 12/18/12) Objective Vital Signs Last 24 Hour Vital Signs Date Time Temp Pulse Resp B/P Pulse Ox O2 Delivery O2 Flow Rate FiO2 03/07/17 12:47 84 18 28 03/07/17 12:47 84 18 100 Mechanical Ventilator 03/07/17 12:36 28 03/07/17 12:36 82 18 100 Mechanical Ventilator 03/07/17 11:31 97.7 81 18 119/76 100 Mechanical Ventilator 03/07/17 10:42 82 18 28 03/07/17 08:53 99 150/96 03/07/17 08:32 99 20 28 03/07/17 07:44 99.0 97 18 150/96 100 Mechanical Ventilator 03/07/17 06:41 94 18 28 03/07/17 06:35 95 18 100 Mechanical Ventilator 03/07/17 06:25 28 03/07/17 06:25 95 18 100 Mechanical Ventilator 03/07/17 05:19 99 18 28 03/07/17 04:00 105 03/07/17 04:00 28 03/07/17 03:48 100.6 106 18 148/85 100 Mechanical Ventilator 03/07/17 03:20 85 19 28 03/07/17 01:34 101 20 100 Mechanical Ventilator 03/07/17 01:27 28 03/07/17 01:27 98 20 100 Mechanical Ventilator 03/07/17 01:26 99 22 28 03/07/17 00:00 28 03/07/17 00:00 98.7 96 18 143/94 100 Mechanical Ventilator 03/07/17 00:00 92 03/06/17 23:44 81 18 28 03/06/17 20:38 84 18 28 03/06/17 20:25 85 18 100 Mechanical Ventilator 03/06/17 20:12 28 03/06/17 20:12 86 18 03/06/17 20:11 84 18 100 Mechanical Ventilator 28 03/06/17 20:00 98.1 85 18 141/86 100 Mechanical Ventilator 28 03/06/17 20:00 79 03/06/17 18:04 96 152/98 03/06/17 17:02 96 21 28 03/06/17 16:00 97.9 97 20 152/98 100 Mechanical Ventilator 28 03/06/17 16:00 87 03/06/17 15:00 82 18 28 03/06/17 13:15 84 18 100 Mechanical Ventilator 28 03/06/17 13:04 28 03/06/17 13:04 75 18 100 Mechanical Ventilator 28 Height (Feet): 5 Height (Inches): 2.00 Weight (Pounds): 150 HEENT: status post trach Respiratory/Chest: lungs clear Cardiovascular: normal rate, regular rhythm, no gallop/murmur Abdomen: soft, non tender, other - GT Extremities: no edema Microbiology Date/Time Source Procedure Growth Status 03/04/17 18:35 Nasal Nares MRSA Culture - Final NO METHICILLIN RESISTANT STAPH AUREUS... Complete 03/05/17 02:10 Sacral Swab Gram Stain - Final Resulted 03/05/17 02:10 Wound Culture - Preliminary Staphylococcus Aureus Gram Negative Vaughn Resulted Laboratory Tests Test 03/07/17 03:15 03/07/17 06:15 03/07/17 11:15 White Blood Count 6.2 K/UL (4.8-10.8) 12.3 K/UL (4.8-10.8) #H Red Blood Count 1.90 M/UL (4.20-5.40) L 3.59 M/UL (4.20-5.40) L Hemoglobin 5.3 G/DL (12.0-16.0) 9.9 G/DL (12.0-16.0) #L Hematocrit 16.4 % (37.0-47.0) #L 30.8 % (37.0-47.0) #L Mean Corpuscular Volume 86 FL (80-99) 86 FL (80-99) Mean Corpuscular Hemoglobin 27.9 PG (27.0-31.0) 27.6 PG (27.0-31.0) Mean Corpuscular Hemoglobin Concent 32.3 G/DL (32.0-36.0) 32.1 G/DL (32.0-36.0) Red Cell Distribution Width 14.3 % (11.6-14.8) 13.8 % (11.6-14.8) Platelet Count 312 K/UL (150-450) 330 K/UL (150-450) Mean Platelet Volume 7.5 FL (6.5-10.1) 7.8 FL (6.5-10.1) Neutrophils (%) (Auto) % (45.0-75.0) 75.6 % (45.0-75.0) H Lymphocytes (%) (Auto) % (20.0-45.0) 11.6 % (20.0-45.0) L Monocytes (%) (Auto) % (1.0-10.0) 9.2 % (1.0-10.0) Eosinophils (%) (Auto) % (0.0-3.0) 2.4 % (0.0-3.0) Basophils (%) (Auto) % (0.0-2.0) 1.3 % (0.0-2.0) Differential Total Cells Counted 100 Neutrophils % (Manual) 76 % (45-75) H Lymphocytes % (Manual) 20 % (20-45) Monocytes % (Manual) 3 % (1-10) Eosinophils % (Manual) 1 % (0-3) Basophils % (Manual) 0 % (0-2) Band Neutrophils 0 % (0-8) Platelet Estimate Adequate Platelet Morphology Normal Hypochromasia 1+ Anisocytosis 1+ Stool Occult Blood Negative (NEGATIVE) Sodium Level 146 mEQ/L (135-145) H Potassium Level 3.0 mEQ/L (3.4-4.9) L Chloride Level 107 mEQ/L (98-107) Carbon Dioxide Level 24 mEQ/L (20-30) Anion Gap 15 (5-15) Blood Urea Nitrogen 5 mg/dL (7-23) L Creatinine 0.6 mg/dL (0.5-0.9) Estimat Glomerular Filtration Rate > 60 mL/min (>60) Glucose Level 150 mg/dL (74-106) H Calcium Level 8.3 mg/dL (8.6-10.2) L Magnesium Level 1.6 mg/dL (1.7-2.5) L Total Bilirubin 0.2 mg/dL (0.0-1.2) Aspartate Amino Transf (AST/SGOT) 10 U/L (5-40) Alanine Aminotransferase (ALT/SGPT) 5 U/L (3-33) Alkaline Phosphatase 100 U/L (35-104) Total Protein 7.3 g/dL (6.6-8.7) Albumin 2.2 g/dL (3.5-5.2) L Globulin 5.1 g/dL Albumin/Globulin Ratio 0.4 (1.0-2.7) L Vancomycin Level Trough 13.5 ug/mL (5.0-12.0) H LAI WATSON March 07, 2017 13:07
--- NOTE | 2017-03-07 13:40 | General Progress Note ---
Assessment/Plan Problem List: (1) Fever ICD Codes: R50.9 - Fever, unspecified SNOMED: 411515309 (2) Lactic acid acidosis ICD Codes: E87.2 - Acidosis SNOMED: 99539528 (3) Seizure disorder ICD Codes: G40.909 - Epilepsy, unspecified, not intractable, without status epilepticus SNOMED: 595332732 (4) Encephalopathies ICD Codes: G93.40 - Encephalopathies SNOMED: 37169742 (5) Sepsis ICD Codes: A41.9 - Sepsis SNOMED: 62776639 (6) Pneumonia ICD Codes: J18.9 - Pneumonia, unspecified organism SNOMED: 397835903 (7) UTI (urinary tract infection) ICD Codes: N39.0 - Urinary tract infection, site not specified SNOMED: 82567839 Qualifiers: Qualified Codes: N30.00 - Acute cystitis without hematuria Status: stable Assessment/Plan transfuse as needed check stool ob. monitor for bleeding. iv abx per id IVF adjusted. monitor lytes. replace k wound care GI eval for leaking gt d/w son a the bedside Subjective ROS Limited/Unobtainable: Yes Constitutional: Reports: malaise, weakness HEENT: Reports: no symptoms Cardiovascular: Reports: no symptoms Respiratory: Reports: no symptoms Gastrointestinal/Abdominal: Reports: difficulty swallowing Genitourinary: Reports: no symptoms Neurologic/Psychiatric: Reports: pre-existing deficit, seizure Endocrine: Reports: no symptoms Hematologic/Lymphatic: Reports: anemia Allergies: Coded Allergies: HEPARIN (PORCINE) (Verified Allergy, Unknown, 03/31/10) HEPARIN ANALOGUES (Unverified Allergy, Unknown, UNK, 12/18/12) All Systems: reviewed and negative except above Subjective fever better. decrease k. s/p transfusion yesterday. cbc better. on iv abx and gt feeds poorly responsive at baseline. Objective Last 24 Hour Vital Signs Date Time Temp Pulse Resp B/P Pulse Ox O2 Delivery O2 Flow Rate FiO2 03/07/17 12:47 84 18 28 03/07/17 12:47 84 18 100 Mechanical Ventilator 03/07/17 12:36 28 03/07/17 12:36 82 18 100 Mechanical Ventilator 03/07/17 11:31 97.7 81 18 119/76 100 Mechanical Ventilator 03/07/17 10:42 82 18 28 03/07/17 08:53 99 150/96 03/07/17 08:32 99 20 28 03/07/17 07:44 99.0 97 18 150/96 100 Mechanical Ventilator 03/07/17 06:41 94 18 28 03/07/17 06:35 95 18 100 Mechanical Ventilator 03/07/17 06:25 28 03/07/17 06:25 95 18 100 Mechanical Ventilator 03/07/17 05:19 99 18 28 03/07/17 04:00 105 03/07/17 04:00 28 03/07/17 03:48 100.6 106 18 148/85 100 Mechanical Ventilator 03/07/17 03:20 85 19 28 03/07/17 01:34 101 20 100 Mechanical Ventilator 03/07/17 01:27 28 03/07/17 01:27 98 20 100 Mechanical Ventilator 03/07/17 01:26 99 22 28 03/07/17 00:00 28 03/07/17 00:00 98.7 96 18 143/94 100 Mechanical Ventilator 03/07/17 00:00 92 03/06/17 23:44 81 18 28 03/06/17 20:38 84 18 28 03/06/17 20:25 85 18 100 Mechanical Ventilator 03/06/17 20:12 28 03/06/17 20:12 86 18 28 03/06/17 20:11 84 18 100 Mechanical Ventilator 03/06/17 20:00 98.1 85 18 141/86 100 Mechanical Ventilator 03/06/17 20:00 79 03/06/17 18:04 96 152/98 03/06/17 17:02 96 21 28 03/06/17 16:00 97.9 97 20 152/98 100 Mechanical Ventilator 03/06/17 16:00 87 03/06/17 15:00 82 18 28 Intake and Output 03/06/17 03/07/17 19:00 07:00 Intake Total 1454.916 ml 1155.541 ml Output Total 875 ml 1225 ml Balance 579.916 ml -69.459 ml Intake Free Water 250 ml 300 ml IV Total 1204.916 ml 855.541 ml Output Urine Total 850 ml 1200 ml Stool Total 25 ml 25 ml # Bowel Movements 3 3 Laboratory Tests 03/07/17 03:15: White Blood Count 6.2, Red Blood Count 1.90L, Hemoglobin 5.3#*L, Hematocrit 16.4 #L, Mean Corpuscular Volume 86, Mean Corpuscular Hemoglobin 27.9, Mean Corpuscular Hemoglobin Concent 32.3, Red Cell Distribution Width 14.3, Platelet Count 312, Mean Platelet Volume 7.5, Neutrophils (%) (Auto) , Lymphocytes (%) ( Auto) , Monocytes (%) (Auto) , Eosinophils (%) (Auto) , Basophils (%) (Auto) , Differential Total Cells Counted 100, Neutrophils % (Manual) 76H, Lymphocytes % (Manual) 20, Monocytes % (Manual) 3, Eosinophils % (Manual) 1, Basophils % ( Manual) 0, Band Neutrophils 0, Platelet Estimate Adequate, Platelet Morphology Normal, Hypochromasia 1+, Anisocytosis 1+ 03/07/17 06:15: White Blood Count 12.3#H, Red Blood Count 3.59L, Hemoglobin 9.9#L, Hematocrit 30.8#L, Mean Corpuscular Volume 86, Mean Corpuscular Hemoglobin 27.6, Mean Corpuscular Hemoglobin Concent 32.1, Red Cell Distribution Width 13.8, Platelet Count 330, Mean Platelet Volume 7.8, Neutrophils (%) (Auto) 75.6H, Lymphocytes ( %) (Auto) 11.6L, Monocytes (%) (Auto) 9.2, Eosinophils (%) (Auto) 2.4, Basophils (%) (Auto) 1.3, Stool Occult Blood Negative, Sodium Level 146H, Potassium Level 3.0L, Chloride Level 107, Carbon Dioxide Level 24, Anion Gap 15 , Blood Urea Nitrogen 5L, Creatinine 0.6, Estimat Glomerular Filtration Rate > 60, Glucose Level 150H, Calcium Level 8.3L, Magnesium Level 1.6L, Total Bilirubin 0.2, Aspartate Amino Transf (AST/SGOT) 10, Alanine Aminotransferase ( ALT/SGPT) 5, Alkaline Phosphatase 100, Total Protein 7.3, Albumin 2.2L, Globulin 5.1, Albumin/Globulin Ratio 0.4L 03/07/17 11:15: Vancomycin Level Trough 13.5H Height (Feet): 5 Height (Inches): 2.00 Weight (Pounds): 150 General Appearance: WD/WN Neck: supple Cardiovascular: regular rhythm Respiratory/Chest: rhonchi - bilaterally Abdomen: normal bowel sounds, non tender, soft, no organomegaly Edema: no edema noted Arm (L), no edema noted Arm (R), no edema noted Leg (L), no edema noted Leg (R), no edema noted Pedal (L), no edema noted Pedal (R), no edema noted Generalized Neurologic: unresponsive ALBER JUDGE March 07, 2017 13:40
[2017-03-07] MEDS ORDERED: Tubing Blood Filter IV ONE (15:28)
[2017-03-07] MEDS ORDERED: 1/2 NS 1000ml IV ONE (15:28)
[2017-03-07] MEDS ORDERED: Tubing IV Secondary IV ONE (15:28)
[2017-03-07] MEDS ORDERED: NS 275ml ONE (15:28)
[2017-03-07 16:30] VITALS: BP 142/96
--- NOTE | 2017-03-07 18:25 | General Progress Note ---
Assessment/Plan Assessment/Plan Assessment - GT site leak - ? etiology (GT in apparent good position) - OBS/obtunded - s/p Trach Recommendations - Hold Feeds - continue PPI - d/c Fe - Reglan trial - check C Diff - Will consider imaging - Will d/w family re anemia Thank you P Zofia Subjective Allergies: Coded Allergies: HEPARIN (PORCINE) (Verified Allergy, Unknown, 03/31/10) HEPARIN ANALOGUES (Unverified Allergy, Unknown, UNK, 12/18/12) Objective Last 24 Hour Vital Signs Date Time Temp Pulse Resp B/P Pulse Ox O2 Delivery O2 Flow Rate FiO2 03/07/17 16:41 84 18 28 03/07/17 16:30 97.7 92 19 142/96 100 Mechanical Ventilator 03/07/17 16:00 83 03/07/17 14:53 94 23 28 03/07/17 12:47 84 18 28 03/07/17 12:47 84 18 100 Mechanical Ventilator 03/07/17 12:36 28 03/07/17 12:36 82 18 100 Mechanical Ventilator 03/07/17 12:00 88 03/07/17 11:31 97.7 81 18 119/76 100 Mechanical Ventilator 03/07/17 10:42 82 18 28 03/07/17 08:53 99 150/96 03/07/17 08:32 99 20 28 03/07/17 08:00 85 03/07/17 07:44 99.0 97 18 150/96 100 Mechanical Ventilator 03/07/17 06:41 94 18 28 03/07/17 06:35 95 18 100 Mechanical Ventilator 03/07/17 06:25 28 03/07/17 06:25 95 18 100 Mechanical Ventilator 03/07/17 05:19 99 18 03/07/17 04:00 105 03/07/17 04:00 28 03/07/17 03:48 100.6 106 18 148/85 100 Mechanical Ventilator 03/07/17 03:20 85 19 28 03/07/17 01:34 101 20 100 Mechanical Ventilator 03/07/17 01:27 28 03/07/17 01:27 98 20 100 Mechanical Ventilator 03/07/17 01:26 99 22 28 03/07/17 00:00 28 03/07/17 00:00 98.7 96 18 143/94 100 Mechanical Ventilator 03/07/17 00:00 92 03/06/17 23:44 81 18 28 03/06/17 20:38 84 18 28 03/06/17 20:25 85 18 100 Mechanical Ventilator 28 03/06/17 20:12 28 03/06/17 20:12 86 18 28 03/06/17 20:11 84 18 100 Mechanical Ventilator 28 03/06/17 20:00 98.1 85 18 141/86 100 Mechanical Ventilator 28 03/06/17 20:00 79 Intake and Output 03/06/17 03/07/17 19:00 07:00 Intake Total 1454.916 ml 1155.541 ml Output Total 875 ml 1225 ml Balance 579.916 ml -69.459 ml Intake Free Water 250 ml 300 ml IV Total 1204.916 ml 855.541 ml Output Urine Total 850 ml 1200 ml Stool Total 25 ml 25 ml # Bowel Movements 3 3 Laboratory Tests 03/07/17 03:15: White Blood Count 6.2, Red Blood Count 1.90L, Hemoglobin 5.3#*L, Hematocrit 16.4 #L, Mean Corpuscular Volume 86, Mean Corpuscular Hemoglobin 27.9, Mean Corpuscular Hemoglobin Concent 32.3, Red Cell Distribution Width 14.3, Platelet Count 312, Mean Platelet Volume 7.5, Neutrophils (%) (Auto) , Lymphocytes (%) ( Auto) , Monocytes (%) (Auto) , Eosinophils (%) (Auto) , Basophils (%) (Auto) , Differential Total Cells Counted 100, Neutrophils % (Manual) 76H, Lymphocytes % (Manual) 20, Monocytes % (Manual) 3, Eosinophils % (Manual) 1, Basophils % ( Manual) 0, Band Neutrophils 0, Platelet Estimate Adequate, Platelet Morphology Normal, Hypochromasia 1+, Anisocytosis 1+ 03/07/17 06:15: White Blood Count 12.3#H, Red Blood Count 3.59L, Hemoglobin 9.9#L, Hematocrit 30.8#L, Mean Corpuscular Volume 86, Mean Corpuscular Hemoglobin 27.6, Mean Corpuscular Hemoglobin Concent 32.1, Red Cell Distribution Width 13.8, Platelet Count 330, Mean Platelet Volume 7.8, Neutrophils (%) (Auto) 75.6H, Lymphocytes ( %) (Auto) 11.6L, Monocytes (%) (Auto) 9.2, Eosinophils (%) (Auto) 2.4, Basophils (%) (Auto) 1.3, Stool Occult Blood Negative, Sodium Level 146H, Potassium Level 3.0L, Chloride Level 107, Carbon Dioxide Level 24, Anion Gap 15 , Blood Urea Nitrogen 5L, Creatinine 0.6, Estimat Glomerular Filtration Rate > 60, Glucose Level 150H, Calcium Level 8.3L, Magnesium Level 1.6L, Total Bilirubin 0.2, Aspartate Amino Transf (AST/SGOT) 10, Alanine Aminotransferase ( ALT/SGPT) 5, Alkaline Phosphatase 100, Total Protein 7.3, Albumin 2.2L, Globulin 5.1, Albumin/Globulin Ratio 0.4L 03/07/17 11:15: Vancomycin Level Trough 13.5H Height (Feet): 5 Height (Inches): 2.00 Weight (Pounds): 150 SERGIO COWART March 07, 2017 18:25
[2017-03-07] MEDS ORDERED: KCl 10% 40mEq/30ml liquid NG ONE (18:30)
[2017-03-07 20:00] VITALS: BP 109/83
[2017-03-07] MEDS: Metoclopramide 10mg/2ml Inj IVP SCH (20:44)
[2017-03-07] MEDS: Epogen (for non ESRD use) SUBQ SCH (20:45)
[2017-03-08] VITALS: BP 145/82
[2017-03-08] MEDS: DuoNeb 0.5-3(2.5)mg/3ml neb HHN SCH ×4 (01:11→18:57)
[2017-03-08] MEDS: Metoclopramide 10mg/2ml Inj IVP SCH ×4 (01:17→20:24)
--- NOTE | 2017-03-08 01:58 | Progress Note ---
DATE: 03/07/2017 SUBJECTIVE: The patient remains on ventilator support. Uncommunicative. She has defervesced. She is status post packed red blood cell transfusion yesterday. OBJECTIVE: VITAL SIGNS: Blood pressure 119/76, pulse 81, and respirations 18. No fevers. She is on 28% FiO2 exam. LUNGS: Bilateral breath sounds with rhonchi. Thin trach secretions. HEART: Regular rhythm and rate. Normal S1, S2 with a fourth heart sound. ABDOMEN: Soft. G-tube intact. EXTREMITIES: Trace edema. LABORATORY DATA: White count 12.3 and hemoglobin 9.9. Sodium 146, potassium 3.80, bicarbonate 24, BUN 5, creatinine 0.6, and magnesium 1.6. Albumin 2.2. IMPRESSION: 1. Severe anemia. 2. Acute myocardial ischemia. 3. Ventilator-dependent respiratory failure. 4. Urinary tract infection. 5. Sepsis. 6. Dehydration. 7. Hypernatremia. 8. Hypokalemia. PLAN: 1. Monitor hemoglobin, transfuse if less than 8 g. 2. Continue antimicrobials. 3. Hypertonic IV fluids. 4. Replace potassium. 5. Continue iron and Epogen therapy. 6. Cautious use of antiplatelet drugs. 7. Monitor for signs of GI blood loss. We will have to discontinue aspirin if that is noted. 8. Titrate beta-blockade. 9. Continue ventilator support. No plan for weaning in this setting. Benedict Gayle M.D. DR: GHASSAN JOB#: [id number] CC:
[2017-03-08] MEDS: Piperacillin/Tazobactam 3.375 GM in D5W 110 ML IVPB SCH ×3 (05:28→22:05)
--- NOTE | 2017-03-08 05:38 | Consultation ---
DATE OF CONSULTATION: 03/07/2017 NOTE: "POOR AUDIO QUALITY" GASTROLOGY CONSULTATION CHIEF COMPLAINT: I was asked to see this patient by Dr. Jaime Heller and Dr. Leighton Zhou for evaluation of leaking gastrostomy tube. HISTORY OF PRESENT ILLNESS: The patient is an unfortunate 72-year-old woman who is a debilitated alf patient with a tracheostomy and gastrostomy, who has been admitted to the hospital from various and is being seen by various specialities. The patient was noted to have a leaking gastrostomy tube from the skin site. The nurse reports that flushing of medications caused them to come out from inside of the gastrostomy site. The patient herself is unable to provide any history. PAST MEDICAL HISTORY: History of encephalopathy, stroke, respiratory failure, diabetes, contractures, hypertension, seizure disorder, gastrostomy tube, tracheostomy tube, and bedbound state. MEDICATIONS: See chart list for details. ALLERGIES: Noted. FAMILY HISTORY: Noncontributory. SOCIAL HISTORY: The patient resides in a alf smoking or drinking. REVIEW OF SYSTEMS: Otherwise not obtainable. PHYSICAL EXAMINATION: GENERAL: The patient is a debilitated woman, seen in her room. HEENT: Normocephalic and atraumatic. Sclerae were anicteric. Oropharynx could not be examined. NECK: Showed a tracheostomy. CHEST: Revealed coarse breath sounds. CARDIOVASCULAR: Revealed a regular rate. ABDOMEN: Soft and mildly distended. The gastrostomy tube appeared to be in good position and at least at the time of my examination showed no leakage. EXTREMITIES: Revealed contractures. NEUROLOGIC: Notable for obtundation. LABORATORY AND DIAGNOSTIC DATA: Laboratory data was notable for severe anemia for which the patient underwent transfusion with possible mild leukocytosis lactic acidosis, which was subsequently resolved. . The liver tests were normal. Thyroid is normal. . The patient's stool occult blood was negative x1. . UA shows too numerous to count red cells and white cells three days ago. absent. X-ray on 03/04/2017 showed no acute findings three days ago. ASSESSMENT: This patient presents with gastrostomy tube leakage of unclear etiology. The patient had a gastrostomy tube, however, I suspect that the leakage is very likely due to current metabolic and septic derangement as opposed to gastrostomy tube problem itself. The gastrostomy tube appears to be in good position on my examination. The attention will therefore be the patient's etiology. The patient should be checked for Clostridium difficile infection since it is a common infection because the gastrointestinal tract. In addition, she also received acid blockade with proton pump inhibitor and she is already on this. Anticholinergic agents should be avoided. I do not see any agents to suspect on her medication list. In addition, however, I will hold off on iron sometimes cause promotility. Reglan was given to promote gastric motility and given her complete bedbound vegetative state, I cannot believe there is any concern about the in this age group. Should the patient's symptoms persist, then further evaluation with imaging studies including small bowel followthrough or CT scan can be considered. I will observe the patient overnight tomorrow. RECOMMENDATIONS: Per above discussion and per orders written in the chart. I will agree that the patient for imaging studies and also discussed the patient's severe anemia with the family. Thank you for asking me to participate in the care of this patient. Denisa Armijo M.D. DR: CLAU JOB#: [id number] CC:
[2017-03-08 08:00] VITALS: BP 116/79
--- NOTE | 2017-03-08 08:33 | General Progress Note ---
Assessment/Plan Problem List: (1) Fever ICD Codes: R50.9 - Fever, unspecified SNOMED: 145874587 (2) Lactic acid acidosis ICD Codes: E87.2 - Acidosis SNOMED: 40677030 (3) Seizure disorder ICD Codes: G40.909 - Epilepsy, unspecified, not intractable, without status epilepticus SNOMED: 057612377 (4) Encephalopathies ICD Codes: G93.40 - Encephalopathies SNOMED: 21419712 (5) Sepsis ICD Codes: A41.9 - Sepsis SNOMED: 71663317 (6) Pneumonia ICD Codes: J18.9 - Pneumonia, unspecified organism SNOMED: 481086662 (7) UTI (urinary tract infection) ICD Codes: N39.0 - Urinary tract infection, site not specified SNOMED: 62019611 Qualifiers: Qualified Codes: N30.00 - Acute cystitis without hematuria Status: stable, progressing Assessment/Plan transfuse as needed check stool ob. monitor for bleeding. iv abx per id IVF adjusted. monitor lytes. replace k wound care gi to change GT vent resp rx wound care Subjective ROS Limited/Unobtainable: Yes Constitutional: Reports: malaise, weakness HEENT: Reports: no symptoms Cardiovascular: Reports: no symptoms Respiratory: Reports: no symptoms Gastrointestinal/Abdominal: Reports: other Genitourinary: Reports: no symptoms Neurologic/Psychiatric: Reports: pre-existing deficit, seizure Endocrine: Reports: no symptoms Hematologic/Lymphatic: Reports: anemia Allergies: Coded Allergies: HEPARIN (PORCINE) (Verified Allergy, Unknown, 03/31/10) HEPARIN ANALOGUES (Unverified Allergy, Unknown, UNK, 12/18/12) All Systems: reviewed and negative except above Subjective fever better. leaking from gt site. gi noted. low K. Objective Last 24 Hour Vital Signs Date Time Temp Pulse Resp B/P Pulse Ox O2 Delivery O2 Flow Rate FiO2 03/08/17 06:35 79 18 28 03/08/17 06:35 79 18 100 Mechanical Ventilator 03/08/17 06:25 28 03/08/17 06:25 79 20 99 Mechanical Ventilator 03/08/17 05:09 80 18 28 03/08/17 04:00 97.9 84 15 96 Nasal Cannula 03/08/17 04:00 28 03/08/17 04:00 76 03/08/17 03:10 76 18 28 03/08/17 01:31 87 18 100 Mechanical Ventilator 28 03/08/17 01:11 28 03/08/17 01:10 82 18 28 03/08/17 01:10 83 18 100 Mechanical Ventilator 28 03/08/17 00:00 28 03/08/17 00:00 87 03/08/17 00:00 97.5 95 15 145/82 100 Room Air 03/07/17 23:26 72 18 28 03/07/17 21:55 80 18 28 03/07/17 20:00 97.2 97 15 109/83 97 Room Air 03/07/17 20:00 28 03/07/17 20:00 95 03/07/17 19:21 90 18 100 Mechanical Ventilator 03/07/17 19:12 88 20 100 Mechanical Ventilator 28 03/07/17 19:12 28 03/07/17 19:10 88 18 28 03/07/17 18:52 84 142/96 03/07/17 16:41 84 18 28 03/07/17 16:30 97.7 92 19 142/96 100 Mechanical Ventilator 03/07/17 16:00 83 03/07/17 14:53 94 23 28 03/07/17 12:47 84 18 28 03/07/17 12:47 84 18 100 Mechanical Ventilator 03/07/17 12:36 28 03/07/17 12:36 82 18 100 Mechanical Ventilator 03/07/17 12:00 88 03/07/17 11:31 97.7 81 18 119/76 100 Mechanical Ventilator 03/07/17 10:42 82 18 28 03/07/17 08:53 99 150/96 03/07/17 08:32 99 20 28 Intake and Output 03/07/17 03/08/17 19:00 07:00 Intake Total 325 ml 1098.75 ml Output Total 1150 ml 850 ml Balance -825 ml 248.75 ml Intake Free Water 250 ml 150 ml IV Total 75 ml 948.75 ml Output Urine Total 1100 ml 750 ml Stool Total 50 ml 100 ml # Bowel Movements 2 3 Laboratory Tests 03/07/17 11:15: Vancomycin Level Trough 13.5H 03/08/17 00:00: Stool Occult Blood [Pending] Height (Feet): 5 Height (Inches): 2.00 Weight (Pounds): 150 Objective General Appearance: WD/WN Neck: supple Cardiovascular: regular rhythm Respiratory/Chest: rhonchi - bilaterally Abdomen: normal bowel sounds, non tender, soft, no organomegaly Edema: no edema noted Arm (L), no edema noted Arm (R), no edema noted Leg (L), no edema noted Leg (R), no edema noted Pedal (L), no edema noted Pedal (R), no edema noted Generalized Neurologic: unresponsive ALBER JUDGE March 08, 2017 08:33
[2017-03-08] MEDS: Docusate 100mg/10ml Liq GT SCH ×2 (09:00→18:00)
[2017-03-08] MEDS: Metoprolol 25mg tab GT SCH ×2 (09:00→17:39)
[2017-03-08] MEDS: Aspirin Baby 81mg GT SCH (09:03)
[2017-03-08] MEDS: Valproic Acid 250mg/5ml Liquid GT SCH ×2 (09:04→20:24)
[2017-03-08] MEDS: Levemir Flexpen SUBQ SCH ×2 (09:06→17:43)
[2017-03-08] MEDS: Multivitamins W/Minerals 15 ML UDC GT SCH (09:07)
--- NOTE | 2017-03-08 09:09 | Pulmonology Progress Note ---
Assessment/Plan Assessment/Plan IMPRESSION: 1. Respiratory failure . 2. Fever/ sepsis 3. Leukocytosis. 4. Tachycardia 5. Profound anemia. 6. Possible gastrointestinal bleed. 7. History of seizure. 8. History of cerebrovascular accident. 9. Tracheostomy. 10. Gastrostomy tube. 11. Chronic encephalopathy. PLAN continue with ventilator ventilator as is; suction PRN monitor lytes iv antibiotics and adjust follow up labs no wean at present monitor for change supportive measures as is impression, plan, and exam edited and reviewed in detail care discussed with RN Subjective ROS Limited/Unobtainable: Yes Allergies: Coded Allergies: HEPARIN (PORCINE) (Verified Allergy, Unknown, 03/31/10) HEPARIN ANALOGUES (Unverified Allergy, Unknown, UNK, 12/18/12) Subjective on the ventilator poor LOC no real change all noted and reviewed in detail vent noted Objective Last 24 Hour Vital Signs Date Time Temp Pulse Resp B/P Pulse Ox O2 Delivery O2 Flow Rate FiO2 03/08/17 08:44 73 18 28 03/08/17 06:35 79 18 28 03/08/17 06:35 79 18 100 Mechanical Ventilator 03/08/17 06:25 28 03/08/17 06:25 79 20 99 Mechanical Ventilator 03/08/17 05:09 80 18 28 03/08/17 04:00 97.9 84 15 96 Nasal Cannula 03/08/17 04:00 28 03/08/17 04:00 76 03/08/17 03:10 76 18 28 03/08/17 01:31 87 18 100 Mechanical Ventilator 03/08/17 01:11 28 03/08/17 01:10 82 18 28 03/08/17 01:10 83 18 100 Mechanical Ventilator 03/08/17 00:00 28 03/08/17 00:00 87 03/08/17 00:00 97.5 95 15 145/82 100 Room Air 03/07/17 23:26 72 18 28 03/07/17 21:55 80 18 28 03/07/17 20:00 97.2 97 15 109/83 97 Room Air 03/07/17 20:00 28 03/07/17 20:00 95 03/07/17 19:21 90 18 100 Mechanical Ventilator 03/07/17 19:12 88 20 100 Mechanical Ventilator 03/07/17 19:12 28 03/07/17 19:10 88 18 28 03/07/17 18:52 84 142/96 03/07/17 16:41 84 18 28 03/07/17 16:30 97.7 92 19 142/96 100 Mechanical Ventilator 28 03/07/17 16:00 83 03/07/17 14:53 94 23 28 03/07/17 12:47 84 18 28 03/07/17 12:47 84 18 100 Mechanical Ventilator 28 03/07/17 12:36 28 03/07/17 12:36 82 18 100 Mechanical Ventilator 28 03/07/17 12:00 88 03/07/17 11:31 97.7 81 18 119/76 100 Mechanical Ventilator 28 03/07/17 10:42 82 18 28 Intake and Output 03/07/17 03/08/17 18:59 06:59 Intake Total 352.5 ml 1173.75 ml Output Total 1150 ml 850 ml Balance -797.5 ml 323.75 ml Intake Free Water 250 ml 150 ml IV Total 102.5 ml 1023.75 ml Output Urine Total 1100 ml 750 ml Stool Total 50 ml 100 ml # Bowel Movements 2 3 Objective GENERAL: A well-developed female, chronically ill. HEENT: Fairly negative. Tracheostomy is midline. Carotids 2+. LUNGS: With adequate breath sounds. scattered rhonchi. CARDIAC: RRR without murmurs, rubs, or gallops. ABDOMEN: Soft. G-tube in place. No distention. no HSM EXTREMITIES: No cyanosis or clubbing. There is significant contractures. NEUROLOGIC: Poorly responsive. same overall reviewed and edited Microbiology Date/Time Source Procedure Growth Status 03/08/17 00:00 Stool Clostridium difficile Toxin Assay - Final Complete Laboratory Tests 03/07/17 11:15: Vancomycin Level Trough 13.5H 03/08/17 00:00: Stool Occult Blood [Pending] Current Medications Medications (Trade) Dose Ordered Sig/Robert Route PRN Reason Start Time Stop Time Status Last Admin Dose Admin Acetaminophen (Tylenol) 650 mg Q4H PRN GT Prn Headache/Temp > 101 03/04/17 17:45 04/03/17 17:44 03/05/17 23:32 Albuterol/ Ipratropium (DuoNeb 0.5-3(2.5)mg/3ml) 3 ml Q6HRT HHN 03/04/17 19:00 03/09/17 18:59 03/08/17 06:42 Aspirin (ASA) 81 mg DAILY GT 03/05/17 09:00 04/04/17 08:59 03/07/17 08:52 Bisacodyl (Dulcolax) 10 mg DAILYPRN PRN RECTAL Constipation 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 03/04/17 17:45 04/03/17 17:44 Docusate Sodium (Colace) 250 mg TWICE A DAY GT 03/08/17 09:00 04/07/17 08:59 Epoetin Ilia (Procrit (for non ESRD use)) 7,000 units FRI-FRI-FRI SUBQ 03/05/17 21:00 04/04/17 20:59 03/07/17 20:45 Ibuprofen (Children's Advil) 400 mg TID PRN GT For Pain 03/04/17 18:45 04/03/17 18:44 03/04/17 19:12 Insulin Detemir 5 units 5 units BID SUBQ 03/04/17 21:00 04/03/17 20:59 03/07/17 18:50 Lansoprazole (Prevacid) 30 mg DAILY GT 03/05/17 09:00 04/04/17 08:59 03/07/17 08:52 Magnesium Hydroxide (Mom) 30 ml DAILYPRN PRN GT Constipation 03/04/17 17:45 04/03/17 17:44 Metoclopramide HCl (Reglan) 10 mg Q6H IVP 03/07/17 20:00 04/06/17 19:59 03/08/17 01:17 Metoprolol Tartrate 12.5 mg 12.5 mg BID GT 03/06/17 09:00 04/05/17 08:59 03/07/17 18:52 Multivitamins (Multivitamins W/ Minerals 15ml Liquid) 15 ml DAILY GT 03/05/17 09:00 04/04/17 08:59 03/07/17 08:57 Piperacillin Sod/ Tazobactam Sod/ Dextrose (Zosyn/D5W) 110 ml @ 27.5 mls/hr EVERY 8 HOURS IVPB 03/04/17 22:00 03/09/17 21:59 03/08/17 05:28 Sodium Chloride (0.45% NS 1000ml) 1,000 ml @ 75 mls/hr [id number] IV 03/06/17 08:00 04/05/17 07:59 03/08/17 06:02 Valproic Acid (Depakene) 750 mg EVERY 12 HOURS GT 03/08/17 09:00 04/07/17 08:59 HAFSA PRESTON March 08, 2017 09:09
[2017-03-08 09:14] LABS: BASOPHILS % (AUTO) 1.3 % (0.0-2.0); EOSINOPHILS % (AUTO) 1.6 % (0.0-3.0); LYMPHOCYTES % (AUTO) 24.6 % (20.0-45.0); MEAN CORPUSCULAR HEMOGLOBIN 27.4 PG (27.0-31.0); MEAN CORPUSCULAR HGB CONC 31.6 G/DL (32.0-36.0); MEAN CORPUSCULAR VOLUME 87 FL (80-99); MONOCYTES % (AUTO) 13.1 % (1.0-10.0); NEUTROPHILS % (AUTO) 59.5 % (45.0-75.0); PLATELET COUNT 302 K/UL (150-450); RED BLOOD COUNT 3.54 M/UL (4.20-5.40); RED CELL DISTRIBUTION WIDTH 13.9 % (11.6-14.8); WHITE BLOOD COUNT 7.6 K/UL (4.8-10.8)
[2017-03-08 09:27] VITALS: BP 116/79
[2017-03-08 09:39] LABS: ALANINE AMINOTRANSFERASE 5 U/L (3-33); ALBUMIN/GLOBULIN RATIO 0.4 (1.0-2.7); ASPARTATE AMINO TRANSFERASE 7 U/L (5-40); CALCIUM 8.3 mg/dL (8.6-10.2); CARBON DIOXIDE 24 mEQ/L (20-30); CHLORIDE 106 mEQ/L (98-107); CREATININE 0.7 mg/dL (0.5-0.9); GLOMERULAR FILTRATION RATE > 60 mL/min (>60); HEMOLYSIS 0; SODIUM 145 mEQ/L (135-145); TOTAL PROTEIN 7.1 g/dL (6.6-8.7)
[2017-03-08 09:49] LABS: ANION GAP 15 (5-15)
[2017-03-08 09:54] LABS: POTASSIUM 2.7 mEQ/L (3.4-4.9)
[2017-03-08] MEDS ORDERED: KCl 10% 40mEq/30ml liquid NG ONE ×2 (11:00→13:00)
--- NOTE | 2017-03-08 11:04 | Infectious Diseases Prog Note ---
Assessment/Plan Assessment/Plan antibiotics : zosyn A 1. proteus UTI 2. DM 3. HTN 4. CVA P 1. continue zosyn 2. will follow up cultures Subjective ROS Limited/Unobtainable: Yes Allergies: Coded Allergies: HEPARIN (PORCINE) (Verified Allergy, Unknown, 03/31/10) HEPARIN ANALOGUES (Unverified Allergy, Unknown, UNK, 12/18/12) Objective Vital Signs Last 24 Hour Vital Signs Date Time Temp Pulse Resp B/P Pulse Ox O2 Delivery O2 Flow Rate FiO2 03/08/17 10:09 75 03/08/17 09:00 84 116/79 03/08/17 08:44 73 18 28 03/08/17 08:00 98.6 84 16 116/79 99 Mechanical Ventilator 03/08/17 08:00 28 03/08/17 06:35 79 18 28 03/08/17 06:35 79 18 100 Mechanical Ventilator 03/08/17 06:25 28 03/08/17 06:25 79 20 99 Mechanical Ventilator 03/08/17 05:09 80 18 28 03/08/17 04:00 97.9 84 15 96 Nasal Cannula 03/08/17 04:00 28 03/08/17 04:00 76 03/08/17 03:10 76 18 28 03/08/17 01:31 87 18 100 Mechanical Ventilator 03/08/17 01:11 28 03/08/17 01:10 82 18 28 03/08/17 01:10 83 18 100 Mechanical Ventilator 03/08/17 00:00 28 03/08/17 00:00 87 03/08/17 00:00 97.5 95 15 145/82 100 Room Air 03/07/17 23:26 72 18 28 03/07/17 21:55 80 18 28 03/07/17 20:00 97.2 97 15 109/83 97 Room Air 03/07/17 20:00 28 03/07/17 20:00 95 03/07/17 19:21 90 18 100 Mechanical Ventilator 03/07/17 19:12 88 20 100 Mechanical Ventilator 03/07/17 19:12 28 03/07/17 19:10 88 18 28 03/07/17 18:52 84 142/96 03/07/17 16:41 84 18 28 03/07/17 16:30 97.7 92 19 142/96 100 Mechanical Ventilator 28 03/07/17 16:00 83 03/07/17 14:53 94 23 28 03/07/17 12:47 84 18 28 03/07/17 12:47 84 18 100 Mechanical Ventilator 28 03/07/17 12:36 28 03/07/17 12:36 82 18 100 Mechanical Ventilator 28 03/07/17 12:00 88 03/07/17 11:31 97.7 81 18 119/76 100 Mechanical Ventilator 28 Height (Feet): 5 Height (Inches): 2.00 Weight (Pounds): 150 HEENT: status post trach Respiratory/Chest: lungs clear Cardiovascular: normal rate, regular rhythm, no gallop/murmur Abdomen: soft, non tender, other - GT Extremities: no edema Microbiology Date/Time Source Procedure Growth Status 03/08/17 00:00 Stool Clostridium difficile Toxin Assay - Final Complete Laboratory Tests Test 03/07/17 11:15 03/08/17 00:00 03/08/17 09:00 Vancomycin Level Trough 13.5 ug/mL (5.0-12.0) H Stool Occult Blood Pending White Blood Count 7.6 K/UL (4.8-10.8) Red Blood Count 3.54 M/UL (4.20-5.40) L Hemoglobin 9.7 G/DL (12.0-16.0) L Hematocrit 30.7 % (37.0-47.0) L Mean Corpuscular Volume 87 FL (80-99) Mean Corpuscular Hemoglobin 27.4 PG (27.0-31.0) Mean Corpuscular Hemoglobin Concent 31.6 G/DL (32.0-36.0) L Red Cell Distribution Width 13.9 % (11.6-14.8) Platelet Count 302 K/UL (150-450) Mean Platelet Volume 8.0 FL (6.5-10.1) Neutrophils (%) (Auto) 59.5 % (45.0-75.0) Lymphocytes (%) (Auto) 24.6 % (20.0-45.0) Monocytes (%) (Auto) 13.1 % (1.0-10.0) H Eosinophils (%) (Auto) 1.6 % (0.0-3.0) Basophils (%) (Auto) 1.3 % (0.0-2.0) Sodium Level 145 mEQ/L (135-145) Potassium Level 2.7 mEQ/L (3.4-4.9) *L Chloride Level 106 mEQ/L (98-107) Carbon Dioxide Level 24 mEQ/L (20-30) Anion Gap 15 (5-15) Blood Urea Nitrogen 3 mg/dL (7-23) L Creatinine 0.7 mg/dL (0.5-0.9) Estimat Glomerular Filtration Rate > 60 mL/min (>60) Glucose Level 127 mg/dL (74-106) H Calcium Level 8.3 mg/dL (8.6-10.2) L Total Bilirubin 0.3 mg/dL (0.0-1.2) Aspartate Amino Transf (AST/SGOT) 7 U/L (5-40) Alanine Aminotransferase (ALT/SGPT) 5 U/L (3-33) Alkaline Phosphatase 86 U/L (35-104) Total Protein 7.1 g/dL (6.6-8.7) Albumin 2.2 g/dL (3.5-5.2) L Globulin 4.9 g/dL Albumin/Globulin Ratio 0.4 (1.0-2.7) L LAI WATSON March 08, 2017 11:04
[2017-03-08 12:09] VITALS: BP 120/71
[2017-03-08] MEDS ORDERED: 1/2 NS 1000ml IV ONE (15:42)
[2017-03-08] MEDS ORDERED: NS 275ml ONE (15:42)
[2017-03-08] MEDS ORDERED: Tubing IV Secondary IV ONE (15:42)
[2017-03-08 15:53] VITALS: BP 119/70
--- NOTE | 2017-03-08 16:59 | General Progress Note ---
Assessment/Plan Assessment/Plan Assessment - GT site leak - ? etiology (GT in apparent good position) - OBS/obtunded - s/p Trach Recommendations - retry TF - continue PPI - d/c Fe - Reglan trial - check C Diff - Will consider imaging - Will d/w family re anemia Subjective Allergies: Coded Allergies: HEPARIN (PORCINE) (Verified Allergy, Unknown, 03/31/10) HEPARIN ANALOGUES (Unverified Allergy, Unknown, UNK, 12/18/12) Subjective Non verbal off feeds message left with family to discuss Objective Last 24 Hour Vital Signs Date Time Temp Pulse Resp B/P Pulse Ox O2 Delivery O2 Flow Rate FiO2 03/08/17 16:30 88 03/08/17 16:11 28 03/08/17 15:53 98.1 82 16 119/70 100 Mechanical Ventilator 03/08/17 15:07 86 18 28 03/08/17 12:41 85 03/08/17 12:36 71 18 28 03/08/17 12:35 71 18 100 Mechanical Ventilator 03/08/17 12:25 70 18 99 Mechanical Ventilator 03/08/17 12:25 28 03/08/17 12:09 98.1 76 17 120/71 100 Mechanical Ventilator 03/08/17 12:04 28 03/08/17 11:17 77 18 28 03/08/17 10:09 75 03/08/17 09:00 84 116/79 03/08/17 08:44 73 18 28 03/08/17 08:00 98.6 84 16 116/79 99 Mechanical Ventilator 03/08/17 08:00 28 03/08/17 06:35 79 18 28 03/08/17 06:35 79 18 100 Mechanical Ventilator 03/08/17 06:25 28 03/08/17 06:25 79 20 99 Mechanical Ventilator 03/08/17 05:09 80 18 28 03/08/17 04:00 97.9 84 15 96 Nasal Cannula 03/08/17 04:00 28 03/08/17 04:00 76 03/08/17 03:10 76 18 28 03/08/17 01:31 87 18 100 Mechanical Ventilator 03/08/17 01:11 28 03/08/17 01:10 82 18 28 03/08/17 01:10 83 18 100 Mechanical Ventilator 03/08/17 00:00 28 03/08/17 00:00 87 03/08/17 00:00 97.5 95 15 145/82 100 Room Air 03/07/17 23:26 72 18 28 03/07/17 21:55 80 18 28 03/07/17 20:00 97.2 97 15 109/83 97 Room Air 03/07/17 20:00 28 03/07/17 20:00 95 03/07/17 19:21 90 18 100 Mechanical Ventilator 28 03/07/17 19:12 88 20 100 Mechanical Ventilator 28 03/07/17 19:12 28 03/07/17 19:10 88 18 28 03/07/17 18:52 84 142/96 Intake and Output 03/07/17 03/08/17 19:00 07:00 Intake Total 325 ml 1201.25 ml Output Total 1150 ml 850 ml Balance -825 ml 351.25 ml Intake Free Water 250 ml 150 ml IV Total 75 ml 1051.25 ml Output Urine Total 1100 ml 750 ml Stool Total 50 ml 100 ml # Bowel Movements 2 3 Laboratory Tests 03/08/17 00:00: Stool Occult Blood Negative 03/08/17 09:00: White Blood Count 7.6, Red Blood Count 3.54L, Hemoglobin 9.7L, Hematocrit 30.7L , Mean Corpuscular Volume 87, Mean Corpuscular Hemoglobin 27.4, Mean Corpuscular Hemoglobin Concent 31.6L, Red Cell Distribution Width 13.9, Platelet Count 302, Mean Platelet Volume 8.0, Neutrophils (%) (Auto) 59.5, Lymphocytes (%) (Auto) 24.6, Monocytes (%) (Auto) 13.1H, Eosinophils (%) (Auto) 1.6, Basophils (%) (Auto) 1.3, Sodium Level 145, Potassium Level 2.7*L, Chloride Level 106, Carbon Dioxide Level 24, Anion Gap 15, Blood Urea Nitrogen 3L, Creatinine 0.7, Estimat Glomerular Filtration Rate > 60, Glucose Level 127H , Calcium Level 8.3L, Total Bilirubin 0.3, Aspartate Amino Transf (AST/SGOT) 7, Alanine Aminotransferase (ALT/SGPT) 5, Alkaline Phosphatase 86, Total Protein 7.1, Albumin 2.2L, Globulin 4.9, Albumin/Globulin Ratio 0.4L Height (Feet): 5 Height (Inches): 2.00 Weight (Pounds): 150 Objective obtunded/ nonverbal NCAT supple CTA RRR Abd soft , GT site OK no edema SERGIO COWART March 08, 2017 16:59
[2017-03-08 20:00] VITALS: BP 123/70
[2017-03-09] VITALS: BP 107/71
[2017-03-09] MEDS: DuoNeb 0.5-3(2.5)mg/3ml neb HHN SCH ×3 (00:38→13:28)
[2017-03-09] MEDS: Metoclopramide 10mg/2ml Inj IVP SCH ×4 (02:08→20:43)
[2017-03-09 04:00] VITALS: BP 157/85
[2017-03-09] MEDS: Piperacillin/Tazobactam 3.375 GM in D5W 110 ML IVPB SCH ×3 (05:04→21:45)
[2017-03-09 06:35] LABS: EOSINOPHILS % (AUTO) 2.3 % (0.0-3.0); LYMPHOCYTES % (AUTO) 31.1 % (20.0-45.0); MEAN CORPUSCULAR HEMOGLOBIN 27.4 PG (27.0-31.0); MEAN CORPUSCULAR HGB CONC 31.1 G/DL (32.0-36.0); MEAN CORPUSCULAR VOLUME 88 FL (80-99); MEAN PLATELET VOLUME 8.6 FL (6.5-10.1); MONOCYTES % (AUTO) 14.7 % (1.0-10.0); PLATELET COUNT 278 K/UL (150-450); RED BLOOD COUNT 3.89 M/UL (4.20-5.40); RED CELL DISTRIBUTION WIDTH 14.3 % (11.6-14.8)
[2017-03-09 07:07] LABS: ALANINE AMINOTRANSFERASE 5 U/L (3-33); ALBUMIN/GLOBULIN RATIO 0.4 (1.0-2.7); ANION GAP 16 (5-15); ASPARTATE AMINO TRANSFERASE 7 U/L (5-40); CALCIUM 8.4 mg/dL (8.6-10.2); CARBON DIOXIDE 24 mEQ/L (20-30); CHLORIDE 107 mEQ/L (98-107); CREATININE 0.7 mg/dL (0.5-0.9); GLOMERULAR FILTRATION RATE > 60 mL/min (>60); HEMOLYSIS 0; POTASSIUM 3.3 mEQ/L (3.4-4.9); SODIUM 147 mEQ/L (135-145); TOTAL PROTEIN 7.3 g/dL (6.6-8.7)
[2017-03-09 08:00] VITALS: BP 150/87
--- NOTE | 2017-03-09 08:26 | Pulmonology Progress Note ---
Assessment/Plan Assessment/Plan IMPRESSION: 1. Respiratory failure . 2. Fever/ sepsis 3. Leukocytosis. 4. Tachycardia 5. Profound anemia. 6. Possible gastrointestinal bleed. 7. History of seizure. 8. History of cerebrovascular accident. 9. Tracheostomy. 10. Gastrostomy tube. 11. Chronic encephalopathy. PLAN continue with ventilator as is ventilator as is; suction PRN monitor lytes and adjust iv antibiotics and adjust follow up labs WBC better no wean at present monitor for change supportive measures as is monitor imaging taper meds as able impression, plan, and exam edited and reviewed in detail care discussed with RN Subjective ROS Limited/Unobtainable: Yes Allergies: Coded Allergies: HEPARIN (PORCINE) (Verified Allergy, Unknown, 03/31/10) HEPARIN ANALOGUES (Unverified Allergy, Unknown, UNK, 12/18/12) Subjective on the ventilator poor LOC labs improved all noted and reviewed in detail vent noted Objective Last 24 Hour Vital Signs Date Time Temp Pulse Resp B/P Pulse Ox O2 Delivery O2 Flow Rate FiO2 03/09/17 08:00 28 03/09/17 07:24 92 18 100 Mechanical Ventilator 03/09/17 07:14 80 18 100 Mechanical Ventilator 03/09/17 07:13 80 18 28 03/09/17 04:41 98 18 28 03/09/17 04:00 28 03/09/17 04:00 99.6 93 22 157/85 100 Mechanical Ventilator 03/09/17 04:00 72 03/09/17 02:40 72 18 28 03/09/17 00:43 82 18 100 Mechanical Ventilator 03/09/17 00:38 28 03/09/17 00:38 83 19 100 Mechanical Ventilator 03/09/17 00:35 98 22 28 03/09/17 00:00 28 03/09/17 00:00 109 03/09/17 00:00 98.4 81 18 107/71 97 Mechanical Ventilator 03/08/17 22:45 79 18 28 03/08/17 20:49 86 18 03/08/17 20:00 88 03/08/17 20:00 28 03/08/17 20:00 98.2 88 18 123/70 95 Mechanical Ventilator 03/08/17 19:10 75 17 100 Mechanical Ventilator 03/08/17 19:01 28 03/08/17 19:01 75 18 99 Mechanical Ventilator 28 03/08/17 18:40 78 18 28 03/08/17 17:39 84 119/70 03/08/17 17:07 84 18 28 03/08/17 16:30 88 03/08/17 16:11 28 03/08/17 15:53 98.1 82 16 119/70 100 Mechanical Ventilator 03/08/17 15:07 86 18 28 03/08/17 12:41 85 03/08/17 12:36 71 18 28 03/08/17 12:35 71 18 100 Mechanical Ventilator 28 03/08/17 12:25 70 18 99 Mechanical Ventilator 28 03/08/17 12:25 28 03/08/17 12:09 98.1 76 17 120/71 100 Mechanical Ventilator 03/08/17 12:04 28 03/08/17 11:17 77 18 28 03/08/17 10:09 75 03/08/17 09:00 84 116/79 03/08/17 08:44 73 18 28 Intake and Output 03/08/17 03/09/17 19:00 07:00 Intake Total 1093.75 ml 1260.0 ml Output Total 1130 ml 600 ml Balance -36.25 ml 660.0 ml Intake Free Water 100 ml IV Total 1078.75 ml 990.0 ml Tube Feeding 15 ml 170 ml Output Urine Total 1100 ml 500 ml Stool Total 30 ml 100 ml # Bowel Movements 5 3 Objective GENERAL: A well-developed female, chronically ill. HEENT: Fairly negative. Tracheostomy is midline. Carotids 2+. LUNGS: With adequate breath sounds. scattered rhonchi. CARDIAC: RRR without murmurs, rubs, or gallops. ABDOMEN: Soft. G-tube in place. No distention. no HSM EXTREMITIES: No cyanosis or clubbing. There is significant contractures. NEUROLOGIC: Poorly responsive. same overall reviewed and edited Microbiology Date/Time Source Procedure Growth Status 03/08/17 00:00 Stool Clostridium difficile Toxin Assay - Final Complete Laboratory Tests 03/08/17 09:00: White Blood Count 7.6, Red Blood Count 3.54L, Hemoglobin 9.7L, Hematocrit 30.7L , Mean Corpuscular Volume 87, Mean Corpuscular Hemoglobin 27.4, Mean Corpuscular Hemoglobin Concent 31.6L, Red Cell Distribution Width 13.9, Platelet Count 302, Mean Platelet Volume 8.0, Neutrophils (%) (Auto) 59.5, Lymphocytes (%) (Auto) 24.6, Monocytes (%) (Auto) 13.1H, Eosinophils (%) (Auto) 1.6, Basophils (%) (Auto) 1.3, Sodium Level 145, Potassium Level 2.7*L, Chloride Level 106, Carbon Dioxide Level 24, Anion Gap 15, Blood Urea Nitrogen 3L, Creatinine 0.7, Estimat Glomerular Filtration Rate > 60, Glucose Level 127H , Calcium Level 8.3L, Total Bilirubin 0.3, Aspartate Amino Transf (AST/SGOT) 7, Alanine Aminotransferase (ALT/SGPT) 5, Alkaline Phosphatase 86, Total Protein 7.1, Albumin 2.2L, Globulin 4.9, Albumin/Globulin Ratio 0.4L 03/09/17 05:10: White Blood Count 8.0, Red Blood Count 3.89L, Hemoglobin 10.7L, Hematocrit 34.3L , Mean Corpuscular Volume 88, Mean Corpuscular Hemoglobin 27.4, Mean Corpuscular Hemoglobin Concent 31.1L, Red Cell Distribution Width 14.3, Platelet Count 278, Mean Platelet Volume 8.6, Neutrophils (%) (Auto) 51.0, Lymphocytes (%) (Auto) 31.1, Monocytes (%) (Auto) 14.7H, Eosinophils (%) (Auto) 2.3, Basophils (%) (Auto) 1.0, Sodium Level 147H, Potassium Level 3.3L, Chloride Level 107, Carbon Dioxide Level 24, Anion Gap 16H, Blood Urea Nitrogen 4L, Creatinine 0.7, Estimat Glomerular Filtration Rate > 60, Glucose Level 105, Calcium Level 8.4L, Total Bilirubin 0.2, Aspartate Amino Transf (AST/SGOT) 7, Alanine Aminotransferase (ALT/SGPT) 5, Alkaline Phosphatase 87, Total Protein 7.3, Albumin 2.2L, Globulin 5.1, Albumin/Globulin Ratio 0.4L Current Medications Medications (Trade) Dose Ordered Sig/Robert Route PRN Reason Start Time Stop Time Status Last Admin Dose Admin Acetaminophen (Tylenol) 650 mg Q4H PRN GT Prn Headache/Temp > 101 03/04/17 17:45 04/03/17 17:44 03/05/17 23:32 Albuterol/ Ipratropium (DuoNeb 0.5-3(2.5)mg/3ml) 3 ml Q6HRT HHN 03/04/17 19:00 03/09/17 18:59 03/09/17 07:12 Aspirin (ASA) 81 mg DAILY GT 03/05/17 09:00 04/04/17 08:59 03/08/17 09:03 Bisacodyl (Dulcolax) 10 mg DAILYPRN PRN RECTAL Constipation 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 03/04/17 17:45 04/03/17 17:44 Docusate Sodium (Colace) 250 mg TWICE A DAY GT 03/08/17 09:00 04/07/17 08:59 Epoetin Ilia (Procrit (for non ESRD use)) 7,000 units FRI-FRI-FRI SUBQ 03/05/17 21:00 04/04/17 20:59 03/07/17 20:45 Ibuprofen (Children's Advil) 400 mg TID PRN GT For Pain 03/04/17 18:45 04/03/17 18:44 03/04/17 19:12 Insulin Detemir 5 units 5 units BID SUBQ 03/04/17 21:00 04/03/17 20:59 03/08/17 17:43 Lansoprazole (Prevacid) 30 mg DAILY GT 03/05/17 09:00 04/04/17 08:59 03/08/17 09:01 Magnesium Hydroxide (Mom) 30 ml DAILYPRN PRN GT Constipation 03/04/17 17:45 04/03/17 17:44 Metoclopramide HCl (Reglan) 10 mg Q6H IVP 03/07/17 20:00 04/06/17 19:59 03/09/17 08:05 Metoprolol Tartrate 12.5 mg 12.5 mg BID GT 03/06/17 09:00 04/05/17 08:59 03/08/17 17:39 Multivitamins (Multivitamins W/ Minerals 15ml Liquid) 15 ml DAILY GT 03/05/17 09:00 04/04/17 08:59 03/08/17 09:07 Piperacillin Sod/ Tazobactam Sod/ Dextrose (Zosyn/D5W) 110 ml @ 27.5 mls/hr EVERY 8 HOURS IVPB 03/04/17 22:00 03/09/17 21:59 03/09/17 05:04 Sodium Chloride (0.45% NS 1000ml) 1,000 ml @ 75 mls/hr [id number] IV 03/06/17 08:00 04/05/17 07:59 03/08/17 19:55 Valproic Acid (Depakene) 750 mg EVERY 12 HOURS GT 03/08/17 09:00 04/07/17 08:59 03/08/17 20:24 HAFSA PRESTON March 09, 2017 08:25
--- NOTE | 2017-03-09 08:33 | Infectious Diseases Prog Note ---
Assessment/Plan Assessment/Plan A: Sepsis Proteus UTI Anemia VDRF DM HPN Diarrhea, C. difficile negative P: continue Zosyn will f/u cultures Subjective ROS Limited/Unobtainable: Yes Allergies: Coded Allergies: HEPARIN (PORCINE) (Verified Allergy, Unknown, 03/31/10) HEPARIN ANALOGUES (Unverified Allergy, Unknown, UNK, 12/18/12) Objective Vital Signs Last 24 Hour Vital Signs Date Time Temp Pulse Resp B/P Pulse Ox O2 Delivery O2 Flow Rate FiO2 03/09/17 08:00 28 03/09/17 07:24 92 18 100 Mechanical Ventilator 03/09/17 07:14 80 18 100 Mechanical Ventilator 03/09/17 07:13 80 18 28 03/09/17 04:41 98 18 28 03/09/17 04:00 28 03/09/17 04:00 99.6 93 22 157/85 100 Mechanical Ventilator 03/09/17 04:00 72 03/09/17 02:40 72 18 28 03/09/17 00:43 82 18 100 Mechanical Ventilator 03/09/17 00:38 28 03/09/17 00:38 83 19 100 Mechanical Ventilator 03/09/17 00:35 98 22 28 03/09/17 00:00 28 03/09/17 00:00 109 03/09/17 00:00 98.4 81 18 107/71 97 Mechanical Ventilator 03/08/17 22:45 79 18 28 03/08/17 20:49 86 18 03/08/17 20:00 88 03/08/17 20:00 28 03/08/17 20:00 98.2 88 18 123/70 95 Mechanical Ventilator 03/08/17 19:10 75 17 100 Mechanical Ventilator 03/08/17 19:01 28 03/08/17 19:01 75 18 99 Mechanical Ventilator 03/08/17 18:40 78 18 28 03/08/17 17:39 84 119/70 03/08/17 17:07 84 18 03/08/17 16:30 88 03/08/17 16:11 28 03/08/17 15:53 98.1 82 16 119/70 100 Mechanical Ventilator 03/08/17 15:07 86 18 28 03/08/17 12:41 85 03/08/17 12:36 71 18 28 03/08/17 12:35 71 18 100 Mechanical Ventilator 28 03/08/17 12:25 70 18 99 Mechanical Ventilator 28 03/08/17 12:25 28 03/08/17 12:09 98.1 76 17 120/71 100 Mechanical Ventilator 03/08/17 12:04 28 03/08/17 11:17 77 18 28 03/08/17 10:09 75 03/08/17 09:00 84 116/79 03/08/17 08:44 73 18 28 Height (Feet): 5 Height (Inches): 2.00 Weight (Pounds): 150 HEENT: status post trach Respiratory/Chest: lungs clear, other - on ventilator Cardiovascular: normal rate Abdomen: soft, non tender, other - GT, rectal tube Extremities: no edema Neurologic/Psychiatric: unresponsiveness Microbiology Date/Time Source Procedure Growth Status 03/08/17 00:00 Stool Clostridium difficile Toxin Assay - Final Complete Laboratory Tests Test 03/08/17 09:00 03/09/17 05:10 White Blood Count 7.6 K/UL (4.8-10.8) 8.0 K/UL (4.8-10.8) Red Blood Count 3.54 M/UL (4.20-5.40) L 3.89 M/UL (4.20-5.40) L Hemoglobin 9.7 G/DL (12.0-16.0) L 10.7 G/DL (12.0-16.0) L Hematocrit 30.7 % (37.0-47.0) L 34.3 % (37.0-47.0) L Mean Corpuscular Volume 87 FL (80-99) 88 FL (80-99) Mean Corpuscular Hemoglobin 27.4 PG (27.0-31.0) 27.4 PG (27.0-31.0) Mean Corpuscular Hemoglobin Concent 31.6 G/DL (32.0-36.0) L 31.1 G/DL (32.0-36.0) L Red Cell Distribution Width 13.9 % (11.6-14.8) 14.3 % (11.6-14.8) Platelet Count 302 K/UL (150-450) 278 K/UL (150-450) Mean Platelet Volume 8.0 FL (6.5-10.1) 8.6 FL (6.5-10.1) Neutrophils (%) (Auto) 59.5 % (45.0-75.0) 51.0 % (45.0-75.0) Lymphocytes (%) (Auto) 24.6 % (20.0-45.0) 31.1 % (20.0-45.0) Monocytes (%) (Auto) 13.1 % (1.0-10.0) H 14.7 % (1.0-10.0) H Eosinophils (%) (Auto) 1.6 % (0.0-3.0) 2.3 % (0.0-3.0) Basophils (%) (Auto) 1.3 % (0.0-2.0) 1.0 % (0.0-2.0) Sodium Level 145 mEQ/L (135-145) 147 mEQ/L (135-145) H Potassium Level 2.7 mEQ/L (3.4-4.9) *L 3.3 mEQ/L (3.4-4.9) L Chloride Level 106 mEQ/L (98-107) 107 mEQ/L (98-107) Carbon Dioxide Level 24 mEQ/L (20-30) 24 mEQ/L (20-30) Anion Gap 15 (5-15) 16 (5-15) H Blood Urea Nitrogen 3 mg/dL (7-23) L 4 mg/dL (7-23) L Creatinine 0.7 mg/dL (0.5-0.9) 0.7 mg/dL (0.5-0.9) Estimat Glomerular Filtration Rate > 60 mL/min (>60) > 60 mL/min (>60) Glucose Level 127 mg/dL (74-106) H 105 mg/dL (74-106) Calcium Level 8.3 mg/dL (8.6-10.2) L 8.4 mg/dL (8.6-10.2) L Total Bilirubin 0.3 mg/dL (0.0-1.2) 0.2 mg/dL (0.0-1.2) Aspartate Amino Transf (AST/SGOT) 7 U/L (5-40) 7 U/L (5-40) Alanine Aminotransferase (ALT/SGPT) 5 U/L (3-33) 5 U/L (3-33) Alkaline Phosphatase 86 U/L (35-104) 87 U/L (35-104) Total Protein 7.1 g/dL (6.6-8.7) 7.3 g/dL (6.6-8.7) Albumin 2.2 g/dL (3.5-5.2) L 2.2 g/dL (3.5-5.2) L Globulin 4.9 g/dL 5.1 g/dL Albumin/Globulin Ratio 0.4 (1.0-2.7) L 0.4 (1.0-2.7) L Current Medications Medications (Trade) Dose Ordered Sig/Robert Route PRN Reason Start Time Stop Time Status Last Admin Dose Admin Acetaminophen (Tylenol) 650 mg Q4H PRN GT Prn Headache/Temp > 101 03/04/17 17:45 04/03/17 17:44 03/05/17 23:32 Albuterol/ Ipratropium (DuoNeb 0.5-3(2.5)mg/3ml) 3 ml Q6HRT HHN 03/04/17 19:00 03/09/17 18:59 03/09/17 07:12 Aspirin (ASA) 81 mg DAILY GT 03/05/17 09:00 04/04/17 08:59 03/08/17 09:03 Bisacodyl (Dulcolax) 10 mg DAILYPRN PRN RECTAL Constipation 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 03/04/17 17:45 04/03/17 17:44 Docusate Sodium (Colace) 250 mg TWICE A DAY GT 03/08/17 09:00 04/07/17 08:59 Epoetin Ilia (Procrit (for non ESRD use)) 7,000 units MON-WED-FRI SUBQ 03/05/17 21:00 04/04/17 20:59 03/07/17 20:45 Ibuprofen (Children's Advil) 400 mg TID PRN GT For Pain 03/04/17 18:45 04/03/17 18:44 03/04/17 19:12 Insulin Detemir 5 units 5 units BID SUBQ 03/04/17 21:00 04/03/17 20:59 03/08/17 17:43 Lansoprazole (Prevacid) 30 mg DAILY GT 03/05/17 09:00 04/04/17 08:59 03/08/17 09:01 Magnesium Hydroxide (Mom) 30 ml DAILYPRN PRN GT Constipation 03/04/17 17:45 04/03/17 17:44 Metoclopramide HCl (Reglan) 10 mg Q6H IVP 03/07/17 20:00 04/06/17 19:59 03/09/17 08:05 Metoprolol Tartrate 12.5 mg 12.5 mg BID GT 03/06/17 09:00 04/05/17 08:59 03/08/17 17:39 Multivitamins (Multivitamins W/ Minerals 15ml Liquid) 15 ml DAILY GT 03/05/17 09:00 04/04/17 08:59 03/08/17 09:07 Piperacillin Sod/ Tazobactam Sod/ Dextrose (Zosyn/D5W) 110 ml @ 27.5 mls/hr EVERY 8 HOURS IVPB 03/04/17 22:00 03/09/17 21:59 03/09/17 05:04 Sodium Chloride (0.45% NS 1000ml) 1,000 ml @ 75 mls/hr [id number] IV 03/06/17 08:00 04/05/17 07:59 03/08/17 19:55 Valproic Acid (Depakene) 750 mg EVERY 12 HOURS GT 03/08/17 09:00 04/07/17 08:59 03/08/17 20:24 RADHA BURNETT March 09, 2017 08:33
--- NOTE | 2017-03-09 08:40 | General Progress Note ---
Assessment/Plan Problem List: (1) Fever ICD Codes: R50.9 - Fever, unspecified SNOMED: 861309673 (2) Lactic acid acidosis ICD Codes: E87.2 - Acidosis SNOMED: 46351203 (3) Seizure disorder ICD Codes: G40.909 - Epilepsy, unspecified, not intractable, without status epilepticus SNOMED: 832171766 (4) Encephalopathies ICD Codes: G93.40 - Encephalopathies SNOMED: 46332210 (5) Sepsis ICD Codes: A41.9 - Sepsis SNOMED: 63699574 (6) Pneumonia ICD Codes: J18.9 - Pneumonia, unspecified organism SNOMED: 882187864 (7) UTI (urinary tract infection) ICD Codes: N39.0 - Urinary tract infection, site not specified SNOMED: 17866630 Qualifiers: Qualified Codes: N30.00 - Acute cystitis without hematuria Status: stable, progressing Assessment/Plan transfuse prn IVF adjusted. monitor lytes. replace k wound care gt feeds per GI. monitor for leaking. iv abx per ID vent resp rx wound care Subjective ROS Limited/Unobtainable: Yes Constitutional: Reports: malaise, weakness HEENT: Reports: no symptoms Cardiovascular: Reports: no symptoms Respiratory: Reports: no symptoms Gastrointestinal/Abdominal: Reports: difficulty swallowing Genitourinary: Reports: no symptoms Neurologic/Psychiatric: Reports: pre-existing deficit Endocrine: Reports: no symptoms Hematologic/Lymphatic: Reports: anemia Allergies: Coded Allergies: HEPARIN (PORCINE) (Verified Allergy, Unknown, 03/31/10) HEPARIN ANALOGUES (Unverified Allergy, Unknown, UNK, 12/18/12) All Systems: reviewed and negative except above Subjective fever better.gi noted. no fevers. on the vent, Objective Last 24 Hour Vital Signs Date Time Temp Pulse Resp B/P Pulse Ox O2 Delivery O2 Flow Rate FiO2 03/09/17 08:00 28 03/09/17 07:24 92 18 100 Mechanical Ventilator 03/09/17 07:14 80 18 100 Mechanical Ventilator 28 03/09/17 07:13 80 18 28 03/09/17 04:41 98 18 28 03/09/17 04:00 28 03/09/17 04:00 99.6 93 22 157/85 100 Mechanical Ventilator 03/09/17 04:00 72 03/09/17 02:40 72 18 28 5/7/17 00:43 82 18 100 Mechanical Ventilator 28 03/09/17 00:38 28 03/09/17 00:38 83 19 100 Mechanical Ventilator 28 03/09/17 00:35 98 22 28 03/09/17 00:00 28 03/09/17 00:00 109 03/09/17 00:00 98.4 81 18 107/71 97 Mechanical Ventilator 28 03/08/17 22:45 79 18 28 03/08/17 20:49 86 18 28 03/08/17 20:00 88 03/08/17 20:00 28 03/08/17 20:00 98.2 88 18 123/70 95 Mechanical Ventilator 03/08/17 19:10 75 17 100 Mechanical Ventilator 03/08/17 19:01 28 03/08/17 19:01 75 18 99 Mechanical Ventilator 03/08/17 18:40 78 18 28 03/08/17 17:39 84 119/70 03/08/17 17:07 84 18 28 03/08/17 16:30 88 03/08/17 16:11 28 03/08/17 15:53 98.1 82 16 119/70 100 Mechanical Ventilator 03/08/17 15:07 86 18 28 03/08/17 12:41 85 03/08/17 12:36 71 18 28 03/08/17 12:35 71 18 100 Mechanical Ventilator 03/08/17 12:25 70 18 99 Mechanical Ventilator 03/08/17 12:25 28 03/08/17 12:09 98.1 76 17 120/71 100 Mechanical Ventilator 03/08/17 12:04 28 03/08/17 11:17 77 18 28 03/08/17 10:09 75 03/08/17 09:00 84 116/79 03/08/17 08:44 73 18 28 Intake and Output 03/08/17 03/09/17 19:00 07:00 Intake Total 1093.75 ml 1260.0 ml Output Total 1130 ml 600 ml Balance -36.25 ml 660.0 ml Intake Free Water 100 ml IV Total 1078.75 ml 990.0 ml Tube Feeding 15 ml 170 ml Output Urine Total 1100 ml 500 ml Stool Total 30 ml 100 ml # Bowel Movements 5 3 Laboratory Tests 03/08/17 09:00: White Blood Count 7.6, Red Blood Count 3.54L, Hemoglobin 9.7L, Hematocrit 30.7L , Mean Corpuscular Volume 87, Mean Corpuscular Hemoglobin 27.4, Mean Corpuscular Hemoglobin Concent 31.6L, Red Cell Distribution Width 13.9, Platelet Count 302, Mean Platelet Volume 8.0, Neutrophils (%) (Auto) 59.5, Lymphocytes (%) (Auto) 24.6, Monocytes (%) (Auto) 13.1H, Eosinophils (%) (Auto) 1.6, Basophils (%) (Auto) 1.3, Sodium Level 145, Potassium Level 2.7*L, Chloride Level 106, Carbon Dioxide Level 24, Anion Gap 15, Blood Urea Nitrogen 3L, Creatinine 0.7, Estimat Glomerular Filtration Rate > 60, Glucose Level 127H , Calcium Level 8.3L, Total Bilirubin 0.3, Aspartate Amino Transf (AST/SGOT) 7, Alanine Aminotransferase (ALT/SGPT) 5, Alkaline Phosphatase 86, Total Protein 7.1, Albumin 2.2L, Globulin 4.9, Albumin/Globulin Ratio 0.4L 03/09/17 05:10: White Blood Count 8.0, Red Blood Count 3.89L, Hemoglobin 10.7L, Hematocrit 34.3L , Mean Corpuscular Volume 88, Mean Corpuscular Hemoglobin 27.4, Mean Corpuscular Hemoglobin Concent 31.1L, Red Cell Distribution Width 14.3, Platelet Count 278, Mean Platelet Volume 8.6, Neutrophils (%) (Auto) 51.0, Lymphocytes (%) (Auto) 31.1, Monocytes (%) (Auto) 14.7H, Eosinophils (%) (Auto) 2.3, Basophils (%) (Auto) 1.0, Sodium Level 147H, Potassium Level 3.3L, Chloride Level 107, Carbon Dioxide Level 24, Anion Gap 16H, Blood Urea Nitrogen 4L, Creatinine 0.7, Estimat Glomerular Filtration Rate > 60, Glucose Level 105, Calcium Level 8.4L, Total Bilirubin 0.2, Aspartate Amino Transf (AST/SGOT) 7, Alanine Aminotransferase (ALT/SGPT) 5, Alkaline Phosphatase 87, Total Protein 7.3, Albumin 2.2L, Globulin 5.1, Albumin/Globulin Ratio 0.4L Height (Feet): 5 Height (Inches): 2.00 Weight (Pounds): 150 Objective General Appearance: WD/WN Neck: supple Cardiovascular: regular rhythm Respiratory/Chest: rhonchi - bilaterally Abdomen: normal bowel sounds, non tender, soft, no organomegaly Edema: no edema noted Arm (L), no edema noted Arm (R), no edema noted Leg (L), no edema noted Leg (R), no edema noted Pedal (L), no edema noted Pedal (R), no edema noted Generalized Neurologic: unresponsive ALBER JUDGE March 09, 2017 08:40
[2017-03-09] MEDS ORDERED: KCl 10% 40mEq/30ml liquid ORAL ONE (09:00)
[2017-03-09] MEDS: Docusate 100mg/10ml Liq GT SCH ×2 (09:00→17:36)
[2017-03-09] MEDS: Aspirin Baby 81mg GT SCH (09:30)
[2017-03-09] MEDS: Multivitamins W/Minerals 15 ML UDC GT SCH (09:30)
[2017-03-09] MEDS: Metoprolol 25mg tab GT SCH ×2 (09:31→17:37)
[2017-03-09] MEDS: Valproic Acid 250mg/5ml Liquid GT SCH ×2 (09:32→20:43)
[2017-03-09] MEDS: Levemir Flexpen SUBQ SCH ×2 (09:34→17:47)
[2017-03-09] MEDS ORDERED: 1/2 NS 1000ml IV ONE (10:11)
[2017-03-09] MEDS ORDERED: NS 275ml ONE (10:11)
[2017-03-09] MEDS ORDERED: Tubing IV Secondary IV ONE (10:11)
[2017-03-09 12:00] VITALS: BP 126/87
--- NOTE | 2017-03-09 14:32 | General Progress Note ---
Assessment/Plan Assessment/Plan Assessment - GT site leak - apparently improved / resolved - OBS/obtunded - s/p Trach Recommendations - advance TF - monitor for leak - continue PPI - Reglan trial - check C Diff - await response from family re anemia Subjective Allergies: Coded Allergies: HEPARIN (PORCINE) (Verified Allergy, Unknown, 03/31/10) HEPARIN ANALOGUES (Unverified Allergy, Unknown, UNK, 12/18/12) Subjective Non verbal back on feeds tolerating well no significant leak awaiting family call back Objective Last 24 Hour Vital Signs Date Time Temp Pulse Resp B/P Pulse Ox O2 Delivery O2 Flow Rate FiO2 03/09/17 13:12 81 18 100 Mechanical Ventilator 03/09/17 13:03 84 18 100 Mechanical Ventilator 03/09/17 13:02 80 18 28 03/09/17 12:13 87 03/09/17 12:00 99.4 82 21 126/87 99 Mechanical Ventilator 03/09/17 12:00 28 03/09/17 10:59 71 18 28 03/09/17 09:31 84 150/87 03/09/17 09:11 84 18 28 03/09/17 08:00 99.6 97 22 150/87 99 28 03/09/17 08:00 28 03/09/17 07:49 94 03/09/17 07:24 92 18 100 Mechanical Ventilator 03/09/17 07:14 80 18 100 Mechanical Ventilator 03/09/17 07:13 80 18 28 03/09/17 04:41 98 18 28 03/09/17 04:00 28 03/09/17 04:00 99.6 93 22 157/85 100 Mechanical Ventilator 03/09/17 04:00 72 03/09/17 02:40 72 18 28 03/09/17 00:43 82 18 100 Mechanical Ventilator 03/09/17 00:38 28 03/09/17 00:38 83 19 100 Mechanical Ventilator 03/09/17 00:35 98 22 28 03/09/17 00:00 28 03/09/17 00:00 109 03/09/17 00:00 98.4 81 18 107/71 97 Mechanical Ventilator 03/08/17 22:45 79 18 28 03/08/17 20:49 86 18 28 03/08/17 20:00 88 5/6/17 20:00 28 03/08/17 20:00 98.2 88 18 123/70 95 Mechanical Ventilator 28 03/08/17 19:10 75 17 100 Mechanical Ventilator 28 03/08/17 19:01 28 03/08/17 19:01 75 18 99 Mechanical Ventilator 28 03/08/17 18:40 78 18 28 03/08/17 17:39 84 119/70 03/08/17 17:07 84 18 28 03/08/17 16:30 88 03/08/17 16:11 28 03/08/17 15:53 98.1 82 16 119/70 100 Mechanical Ventilator 03/08/17 15:07 86 18 28 Intake and Output 03/08/17 03/09/17 19:00 07:00 Intake Total 1093.75 ml 1280.0 ml Output Total 1130 ml 600 ml Balance -36.25 ml 680.0 ml Intake Free Water 100 ml IV Total 1078.75 ml 990.0 ml Tube Feeding 15 ml 190 ml Output Urine Total 1100 ml 500 ml Stool Total 30 ml 100 ml # Bowel Movements 5 3 Laboratory Tests 03/09/17 05:10: White Blood Count 8.0, Red Blood Count 3.89L, Hemoglobin 10.7L, Hematocrit 34.3L , Mean Corpuscular Volume 88, Mean Corpuscular Hemoglobin 27.4, Mean Corpuscular Hemoglobin Concent 31.1L, Red Cell Distribution Width 14.3, Platelet Count 278, Mean Platelet Volume 8.6, Neutrophils (%) (Auto) 51.0, Lymphocytes (%) (Auto) 31.1, Monocytes (%) (Auto) 14.7H, Eosinophils (%) (Auto) 2.3, Basophils (%) (Auto) 1.0, Sodium Level 147H, Potassium Level 3.3L, Chloride Level 107, Carbon Dioxide Level 24, Anion Gap 16H, Blood Urea Nitrogen 4L, Creatinine 0.7, Estimat Glomerular Filtration Rate > 60, Glucose Level 105, Calcium Level 8.4L, Total Bilirubin 0.2, Aspartate Amino Transf (AST/SGOT) 7, Alanine Aminotransferase (ALT/SGPT) 5, Alkaline Phosphatase 87, Total Protein 7.3, Albumin 2.2L, Globulin 5.1, Albumin/Globulin Ratio 0.4L Height (Feet): 5 Height (Inches): 2.00 Weight (Pounds): 150 Objective obtunded/ nonverbal NCAT supple CTA RRR Abd soft , GT site OK no edema SERGIO COWART March 09, 2017 14:32
[2017-03-09 16:00] VITALS: BP 141/70
[2017-03-09 20:00] VITALS: BP 149/92
[2017-03-10] VITALS: BP 127/98
[2017-03-10] MEDS: D5 1/2NS w/KCl 20mEq 1,000 ML IV SCH ×2 (00:34→11:50)
[2017-03-10] MEDS: Metoclopramide 10mg/2ml Inj IVP SCH ×3 (02:39→14:58)
[2017-03-10 04:00] VITALS: BP 140/79
--- NOTE | 2017-03-10 04:09 | Progress Note ---
DATE: 03/09/2017 CARDIOLOGY PROGRESS NOTE SUBJECTIVE: The patient remains on ventilator support. OBJECTIVE: VITAL SIGNS: Blood pressure control has improved. Heart rate is in the 80 to 100 range. LUNGS: Bilateral breath sounds. Scattered rhonchi. HEART: Regular rhythm and rate. Normal S1 and S2. ABDOMEN: Soft. G-tube intact. EXTREMITIES: Trace dependent edema. LABORATORY DATA: White count 8 and hemoglobin 10.7. Sodium 147, potassium 3.3, bicarbonate 24, BUN 4, and creatinine 0.7. Albumin is 2.2. IMPRESSION: 1. Sepsis. 2. Respiratory failure. 3. Myocardial ischemia. 4. Anemia. 5. Dehydration. 6. Hypernatremia. 7. Hypokalemia. 8. Severe protein-calorie malnutrition. 9. Cerebrovascular disease with encephalopathy. 10. Dysphagia with gastrostomy tube. PLAN: 1. Nutrition by feeding tube. 2. Ventilator support. 3. Antimicrobials. 4. Hypotonic IV fluids. 5. Replace potassium. 6. Recheck magnesium. 7. Iron supplementation. 8. Epogen therapy. 9. Stress ulcer prophylaxis. Benedict Gayle M.D. DR: LYNDSAY JOB#: [id number] CC:
--- NOTE | 2017-03-10 05:29 | Progress Note ---
CARDIOLOGY PROGRESS NOTE: March 08, 2017 (late entry) SUBJECTIVE: The patient was seen and evaluated. Case was discussed with Dr. Zhou. The patient is defervescing. She still has leaking from her G-tube. She remains on ventilator support. OBJECTIVE: VITAL SIGNS: Afebrile, blood pressure 145/82, heart rate 95, and respiratory rate 15 . NECK: Supple. Thin trach secretions. Bilateral rhonchi. HEART: Regular rhythm and rate. Normal S1, S2. ABDOMEN: Soft. G-tube intact. EXTREMITIES: No edema. LABORATORY DATA: Sodium 145, potassium 3.7, bicarb 24, BUN 3, and creatinine 0.7. Albumin 2.2. White count 7.6 and hemoglobin is 9.7. IMPRESSION: 1. Respiratory failure, ventilator dependent. 2. Anemia. 3. Hypokalemia. 4. Severe protein-calorie malnutrition. 5. Dehydration. 6. Hypernatremia. 7. Lactic acidosis. 8. Secondary sinus tachycardia. 9. Acute myocardial ischemia. 10. Severe anemia. PLAN: Continue hypotonic IV fluids. Replace potassium as needed. Iron and Epogen supplement. Transfuse for hemoglobin less than 8 g. Cautious use of beta-simi. Watch for low blood pressure. Antimicrobials and ventilator support. Benedict Gayle M.D. DR: Kathy JOB#: [id number] CC: SANIYA
[2017-03-10] MEDS: Piperacillin/Tazobactam 3.375 GM in D5W 110 ML IVPB SCH (05:35)
[2017-03-10 06:02] LABS: BASOPHILS % (AUTO) 1.6 % (0.0-2.0); EOSINOPHILS % (AUTO) 2.2 % (0.0-3.0); LYMPHOCYTES % (AUTO) 21.6 % (20.0-45.0); MEAN CORPUSCULAR HEMOGLOBIN 27.2 PG (27.0-31.0); MEAN CORPUSCULAR HGB CONC 30.5 G/DL (32.0-36.0); MEAN CORPUSCULAR VOLUME 89 FL (80-99); MEAN PLATELET VOLUME 8.2 FL (6.5-10.1); MONOCYTES % (AUTO) 15.6 % (1.0-10.0); NEUTROPHILS % (AUTO) 59.1 % (45.0-75.0); PLATELET COUNT 253 K/UL (150-450); RED BLOOD COUNT 3.79 M/UL (4.20-5.40); RED CELL DISTRIBUTION WIDTH 14.6 % (11.6-14.8); WHITE BLOOD COUNT 6.9 K/UL (4.8-10.8)
[2017-03-10 06:18] LABS: ALANINE AMINOTRANSFERASE 5 U/L (3-33); ALBUMIN/GLOBULIN RATIO 0.3 (1.0-2.7); ANION GAP 15 (5-15); ASPARTATE AMINO TRANSFERASE 8 U/L (5-40); CALCIUM 8.4 mg/dL (8.6-10.2); CARBON DIOXIDE 25 mEQ/L (20-30); CHLORIDE 106 mEQ/L (98-107); CREATININE 0.7 mg/dL (0.5-0.9); GLOMERULAR FILTRATION RATE > 60 mL/min (>60); HEMOLYSIS 3; POTASSIUM 3.5 mEQ/L (3.4-4.9); SODIUM 146 mEQ/L (135-145); TOTAL PROTEIN 7.4 g/dL (6.6-8.7)
[2017-03-10 08:00] VITALS: BP 137/81
--- NOTE | 2017-03-10 08:04 | General Progress Note ---
Assessment/Plan Problem List: (1) Fever ICD Codes: R50.9 - Fever, unspecified SNOMED: 448711545 (2) Lactic acid acidosis ICD Codes: E87.2 - Acidosis SNOMED: 06105188 (3) Seizure disorder ICD Codes: G40.909 - Epilepsy, unspecified, not intractable, without status epilepticus SNOMED: 754536745 (4) Encephalopathies ICD Codes: G93.40 - Encephalopathies SNOMED: 87092397 (5) Sepsis ICD Codes: A41.9 - Sepsis SNOMED: 47781098 (6) Pneumonia ICD Codes: J18.9 - Pneumonia, unspecified organism SNOMED: 086287469 (7) UTI (urinary tract infection) ICD Codes: N39.0 - Urinary tract infection, site not specified SNOMED: 13207152 Qualifiers: Qualified Codes: N30.00 - Acute cystitis without hematuria Status: stable, progressing Assessment/Plan transfuse prn IVF adjusted. monitor lytes. replace k wound care gt feeds per GI. monitor for leaking. iv abx per ID vent resp rx wound care dc planning if ok with all Subjective ROS Limited/Unobtainable: Yes Constitutional: Reports: malaise, weakness HEENT: Reports: no symptoms Cardiovascular: Reports: no symptoms Respiratory: Reports: shortness of breath, sputum Gastrointestinal/Abdominal: Reports: difficulty swallowing Genitourinary: Reports: no symptoms Neurologic/Psychiatric: Reports: pre-existing deficit, seizure Endocrine: Reports: no symptoms Hematologic/Lymphatic: Reports: anemia Allergies: Coded Allergies: HEPARIN (PORCINE) (Verified Allergy, Unknown, 03/31/10) HEPARIN ANALOGUES (Unverified Allergy, Unknown, UNK, 12/18/12) All Systems: reviewed and negative except above Subjective fever better.gi noted. no fevers. on the vent, tolerating feeds. no leaking noted. Objective Last 24 Hour Vital Signs Date Time Temp Pulse Resp B/P Pulse Ox O2 Delivery O2 Flow Rate FiO2 03/10/17 07:15 82 20 28 03/10/17 05:07 89 20 28 03/10/17 04:00 28 03/10/17 04:00 86 03/10/17 04:00 99.1 89 20 140/79 98 Nasal Cannula 2.0 03/10/17 03:14 87 19 28 03/10/17 01:01 88 21 28 03/10/17 00:00 28 03/10/17 00:00 99.1 79 20 127/98 98 Nasal Cannula 2.0 03/10/17 00:00 84 03/09/17 23:06 85 19 28 03/09/17 20:36 82 19 28 03/09/17 20:00 80 03/09/17 20:00 28 03/09/17 20:00 98.0 86 20 149/92 100 Nasal Cannula 2.0 86 03/09/17 19:11 80 21 28 03/09/17 17:37 95 141/70 03/09/17 16:49 95 28 28 03/09/17 16:00 99.3 92 28 141/70 99 Mechanical Ventilator 28 03/09/17 16:00 28 03/09/17 15:39 80 03/09/17 14:42 85 18 28 03/09/17 13:12 81 18 100 Mechanical Ventilator 03/09/17 13:03 84 18 100 Mechanical Ventilator 28 03/09/17 13:02 80 18 28 03/09/17 12:13 87 03/09/17 12:00 99.4 82 21 126/87 99 Mechanical Ventilator 28 03/09/17 12:00 28 03/09/17 10:59 71 18 28 03/09/17 09:31 84 150/87 03/09/17 09:11 84 18 28 Intake and Output 03/09/17 03/10/17 19:00 07:00 Intake Total 1410 ml 1126.25 ml Output Total 1225 ml 1050 ml Balance 185 ml 76.25 ml Intake Free Water 560 ml IV Total 300 ml 636.25 ml Tube Feeding 450 ml 490 ml Other 100 ml Output Urine Total 1175 ml 1000 ml Stool Total 50 ml 50 ml # Bowel Movements 3 Laboratory Tests 03/10/17 04:45: White Blood Count 6.9, Red Blood Count 3.79L, Hemoglobin 10.3L, Hematocrit 33.7L , Mean Corpuscular Volume 89, Mean Corpuscular Hemoglobin 27.2, Mean Corpuscular Hemoglobin Concent 30.5L, Red Cell Distribution Width 14.6, Platelet Count 253, Mean Platelet Volume 8.2, Neutrophils (%) (Auto) 59.1, Lymphocytes (%) (Auto) 21.6, Monocytes (%) (Auto) 15.6H, Eosinophils (%) (Auto) 2.2, Basophils (%) (Auto) 1.6, Sodium Level 146H, Potassium Level 3.5, Chloride Level 106, Carbon Dioxide Level 25, Anion Gap 15, Blood Urea Nitrogen 8, Creatinine 0.7, Estimat Glomerular Filtration Rate > 60, Glucose Level 149H, Calcium Level 8.4L, Magnesium Level 2.0, Total Bilirubin 0.2, Aspartate Amino Transf (AST/SGOT) 8, Alanine Aminotransferase (ALT/SGPT) 5, Alkaline Phosphatase 85, Total Protein 7.4, Albumin 2.1L, Globulin 5.3, Albumin/Globulin Ratio 0.3L Height (Feet): 5 Height (Inches): 2.00 Weight (Pounds): 150 Objective General Appearance: WD/WN Neck: supple Cardiovascular: regular rhythm Respiratory/Chest: rhonchi - bilaterally Abdomen: normal bowel sounds, non tender, soft, no organomegaly Edema: no edema noted Arm (L), no edema noted Arm (R), no edema noted Leg (L), no edema noted Leg (R), no edema noted Pedal (L), no edema noted Pedal (R), no edema noted Generalized Neurologic: unresponsive ALBER JUDGE March 10, 2017 08:04
[2017-03-10] MEDS ORDERED: Lidocaine 1% Plain 30 ml INJ PRN (08:15)
[2017-03-10] MEDS ORDERED: Sodium Bicarbonate 8.4% 50ml Inj IV ONE (08:15)
[2017-03-10] MEDS ORDERED: KCl 10% 40mEq/30ml liquid NG ONE (08:15)
[2017-03-10] MEDS ORDERED: Heparin 2000 units/Ns 1000ml INJ ONE (08:15)
--- NOTE | 2017-03-10 08:19 | Pulmonology Progress Note ---
Assessment/Plan Assessment/Plan IMPRESSION: 1. Respiratory failure . 2. Fever/ sepsis 3. Leukocytosis. 4. Tachycardia 5. Profound anemia. 6. Possible gastrointestinal bleed. 7. History of seizure. 8. History of cerebrovascular accident. 9. Tracheostomy. 10. Gastrostomy tube. 11. Chronic encephalopathy. PLAN continue with ventilator management as outlined Suction PRN monitor lytes and adjust iv antibiotics per ID follow up labs noted WBC now normal no wean at present monitor for change supportive measures as is monitor imaging dc to SNF impression, plan, and exam edited and reviewed in detail care discussed with RN Subjective ROS Limited/Unobtainable: Yes Allergies: Coded Allergies: HEPARIN (PORCINE) (Verified Allergy, Unknown, 03/31/10) HEPARIN ANALOGUES (Unverified Allergy, Unknown, UNK, 12/18/12) Subjective on the ventilator poor LOC labs stable all noted and reviewed in detail vent noted and adjustments reviewed Objective Last 24 Hour Vital Signs Date Time Temp Pulse Resp B/P Pulse Ox O2 Delivery O2 Flow Rate FiO2 03/10/17 07:15 82 20 28 03/10/17 05:07 89 20 28 03/10/17 04:00 28 03/10/17 04:00 86 03/10/17 04:00 99.1 89 20 140/79 98 Nasal Cannula 2.0 03/10/17 03:14 87 19 28 03/10/17 01:01 88 21 28 03/10/17 00:00 28 03/10/17 00:00 99.1 79 20 127/98 98 Nasal Cannula 2.0 03/10/17 00:00 84 03/09/17 23:06 85 19 28 03/09/17 20:36 82 19 28 03/09/17 20:00 80 03/09/17 20:00 28 03/09/17 20:00 98.0 86 20 149/92 100 Nasal Cannula 2.0 86 03/09/17 19:11 80 21 28 03/09/17 17:37 95 141/70 03/09/17 16:49 95 28 28 03/09/17 16:00 99.3 92 28 141/70 99 Mechanical Ventilator 28 03/09/17 16:00 28 03/09/17 15:39 80 03/09/17 14:42 85 18 28 03/09/17 13:12 81 18 100 Mechanical Ventilator 03/09/17 13:03 84 18 100 Mechanical Ventilator 28 03/09/17 13:02 80 18 28 03/09/17 12:13 87 03/09/17 12:00 99.4 82 21 126/87 99 Mechanical Ventilator 28 03/09/17 12:00 28 03/09/17 10:59 71 18 28 03/09/17 09:31 84 150/87 03/09/17 09:11 84 18 28 Intake and Output 03/09/17 03/10/17 19:00 07:00 Intake Total 1410 ml 1126.25 ml Output Total 1225 ml 1050 ml Balance 185 ml 76.25 ml Intake Free Water 560 ml IV Total 300 ml 636.25 ml Tube Feeding 450 ml 490 ml Other 100 ml Output Urine Total 1175 ml 1000 ml Stool Total 50 ml 50 ml # Bowel Movements 3 Objective GENERAL: A well-developed female, chronically ill. HEENT: Fairly negative. Tracheostomy is midline. Carotids 2+. LUNGS: With adequate breath sounds. scattered rhonchi. CARDIAC: RRR without murmurs, rubs, or gallops. ABDOMEN: Soft. G-tube in place. No distention. no HSM EXTREMITIES: No cyanosis or clubbing. There is significant contractures. NEUROLOGIC: Poorly responsive. same overall reviewed and edited Microbiology Date/Time Source Procedure Growth Status 03/08/17 00:00 Stool Clostridium difficile Toxin Assay - Final Complete Laboratory Tests 03/10/17 04:45: White Blood Count 6.9, Red Blood Count 3.79L, Hemoglobin 10.3L, Hematocrit 33.7L , Mean Corpuscular Volume 89, Mean Corpuscular Hemoglobin 27.2, Mean Corpuscular Hemoglobin Concent 30.5L, Red Cell Distribution Width 14.6, Platelet Count 253, Mean Platelet Volume 8.2, Neutrophils (%) (Auto) 59.1, Lymphocytes (%) (Auto) 21.6, Monocytes (%) (Auto) 15.6H, Eosinophils (%) (Auto) 2.2, Basophils (%) (Auto) 1.6, Sodium Level 146H, Potassium Level 3.5, Chloride Level 106, Carbon Dioxide Level 25, Anion Gap 15, Blood Urea Nitrogen 8, Creatinine 0.7, Estimat Glomerular Filtration Rate > 60, Glucose Level 149H, Calcium Level 8.4L, Magnesium Level 2.0, Total Bilirubin 0.2, Aspartate Amino Transf (AST/SGOT) 8, Alanine Aminotransferase (ALT/SGPT) 5, Alkaline Phosphatase 85, Total Protein 7.4, Albumin 2.1L, Globulin 5.3, Albumin/Globulin Ratio 0.3L Current Medications Medications (Trade) Dose Ordered Sig/Robert Route PRN Reason Start Time Stop Time Status Last Admin Dose Admin Acetaminophen (Tylenol) 650 mg Q4H PRN GT Prn Headache/Temp > 101 03/04/17 17:45 04/03/17 17:44 03/05/17 23:32 Aspirin (ASA) 81 mg DAILY GT 03/05/17 09:00 04/04/17 08:59 03/09/17 09:30 Bisacodyl (Dulcolax) 10 mg DAILYPRN PRN RECTAL Constipation 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 03/04/17 17:45 04/03/17 17:44 Dextrose/ Electrolytes (D5 0.45%NS W/ KCl 20mEq) 1,000 ml @ 75 mls/hr [id number] IV 03/09/17 22:30 04/08/17 22:29 03/10/17 00:34 Docusate Sodium (Colace) 250 mg TWICE A DAY GT 03/08/17 09:00 04/07/17 08:59 Epoetin Ilia (Procrit (for non ESRD use)) 7,000 units FRI-WED-FRI SUBQ 03/05/17 21:00 04/04/17 20:59 03/07/17 20:45 Ibuprofen (Children's Advil) 400 mg TID PRN GT For Pain 03/04/17 18:45 04/03/17 18:44 03/04/17 19:12 Insulin Detemir 5 units 5 units BID SUBQ 03/04/17 21:00 04/03/17 20:59 03/09/17 17:47 Lansoprazole (Prevacid) 30 mg DAILY GT 03/05/17 09:00 04/04/17 08:59 03/09/17 09:35 Lidocaine HCl (Xylocaine 1% 30ml) 30 ml ONCE PRN INJ PICC PLACEMENT 03/10/17 08:15 03/11/17 23:59 Magnesium Hydroxide (Mom) 30 ml DAILYPRN PRN GT Constipation 03/04/17 17:45 04/03/17 17:44 Metoclopramide HCl (Reglan) 10 mg Q6H IVP 03/07/17 20:00 04/06/17 19:59 03/10/17 02:39 Metoprolol Tartrate (Lopressor) 12.5 mg BID GT 03/06/17 09:00 04/05/17 08:59 03/09/17 17:37 Multivitamins (Multivitamins W/ Minerals 15ml Liquid) 15 ml DAILY GT 03/05/17 09:00 04/04/17 08:59 03/09/17 09:30 Piperacillin Sod/ Tazobactam Sod/ Dextrose (Zosyn/D5W) 110 ml @ 27.5 mls/hr EVERY 8 HOURS IVPB 03/04/17 22:00 03/14/17 21:59 03/10/17 05:35 Sodium Bicarbonate (Sodium Bicarbonate) 50 ml ONCE ONCE IV 03/10/17 08:15 03/10/17 08:16 UNV Valproic Acid 750 mg 750 mg EVERY 12 HOURS GT 03/08/17 09:00 04/07/17 08:59 03/09/17 20:43 HAFSA PRESTON March 10, 2017 08:19
[2017-03-10] MEDS: Levemir Flexpen SUBQ SCH (08:24)
[2017-03-10] MEDS: Valproic Acid 250mg/5ml Liquid GT SCH (08:25)
[2017-03-10] MEDS: Multivitamins W/Minerals 15 ML UDC GT SCH (08:26)
[2017-03-10] MEDS: Metoprolol 25mg tab GT SCH (08:27)
[2017-03-10] MEDS: Aspirin Baby 81mg GT SCH (08:28)
[2017-03-10] MEDS: Docusate 100mg/10ml Liq GT SCH (09:00)
--- NOTE | 2017-03-10 10:18 | Cardiology Report ---
APPROVED REPORT EXAM: Two-dimensional and M-mode echocardiogram with Doppler and color Doppler. INDICATION Arrhythmia M-Mode DIMENSIONS IVSd1.2 (0.7-1.1cm)Left Atrium (MM)4.0 (1.6-4.0cm) LVDd5.6 (3.5-5.6cm)Aortic Root3.2 (2.0-3.7cm) PWd1.2 (0.7-1.1cm)Aortic Cusp Exc.1.9 (1.5-2.0cm) LVDs3.6 (2.5-4.0cm) PWs1.9 cm Normal left ventricular chamber size, systolic function and wall motion. Left ventricular ejection fraction estimated to be 65 %. Concentric left ventricular hypertrophy. No evidence of pericardial effusion. Anterior Echo-free space, may be due to pericardial fat or effusion. All other cardiac chamber sizes are within normal limits. . Thickened mitral valve leaflets with normal excursion. Normal pulmonic valve structure Normal tricuspid valve structure. IVC at normal size 2.0 cm with physiologic collapse. . A color flow and spectral Doppler study was performed and revealed: No aortic regurgitation. Mild Mitral regurgitation. Normal LV diastolic Function. Mild tricuspid regurgitation. Tricuspid systolic velocities suggests peak right ventricular systolic pressure of 40 mmHg. No Pulmonic regurgitation present.
[2017-03-10] MEDS ORDERED: 1/2 NS 1000ml IV ONE (10:46)
[2017-03-10] MEDS ORDERED: NS 275ml ONE (10:46)
[2017-03-10 12:00] VITALS: BP 151/85
--- NOTE | 2017-03-10 12:53 | Infectious Diseases Prog Note ---
Assessment/Plan Assessment/Plan antibiotics : zosyn A 1. proteus UTI s/p rx 2. DM 3. HTN 4. CVA P 1. d/c zosyn 2. observe off antibiotics Subjective ROS Limited/Unobtainable: Yes Allergies: Coded Allergies: HEPARIN (PORCINE) (Verified Allergy, Unknown, 03/31/10) HEPARIN ANALOGUES (Unverified Allergy, Unknown, UNK, 12/18/12) Objective Vital Signs Last 24 Hour Vital Signs Date Time Temp Pulse Resp B/P Pulse Ox O2 Delivery O2 Flow Rate FiO2 03/10/17 12:31 28 03/10/17 10:36 82 18 28 03/10/17 09:02 80 18 28 03/10/17 08:27 79 135/70 03/10/17 08:00 85 03/10/17 08:00 98.1 81 18 137/81 99 Mechanical Ventilator 03/10/17 08:00 28 03/10/17 07:15 82 20 28 03/10/17 05:07 89 20 28 03/10/17 04:00 28 03/10/17 04:00 86 03/10/17 04:00 99.1 89 20 140/79 98 Nasal Cannula 2.0 03/10/17 03:14 87 19 28 03/10/17 01:01 88 21 28 03/10/17 00:00 28 03/10/17 00:00 99.1 79 20 127/98 98 Nasal Cannula 2.0 03/10/17 00:00 84 03/09/17 23:06 85 19 28 03/09/17 20:36 82 19 28 03/09/17 20:00 80 03/09/17 20:00 28 03/09/17 20:00 98.0 86 20 149/92 100 Nasal Cannula 2.0 86 03/09/17 19:11 80 21 28 03/09/17 17:37 95 141/70 03/09/17 16:49 95 28 28 03/09/17 16:00 99.3 92 28 141/70 99 Mechanical Ventilator 03/09/17 16:00 28 03/09/17 15:39 80 03/09/17 14:42 85 18 28 03/09/17 13:12 81 18 100 Mechanical Ventilator 03/09/17 13:03 84 18 100 Mechanical Ventilator 03/09/17 13:02 80 18 28 Height (Feet): 5 Height (Inches): 2.00 Weight (Pounds): 150 HEENT: status post trach Respiratory/Chest: lungs clear Cardiovascular: normal rate, regular rhythm, no gallop/murmur Abdomen: soft, non tender Extremities: no edema Microbiology Date/Time Source Procedure Growth Status 03/08/17 00:00 Stool Clostridium difficile Toxin Assay - Final Complete Laboratory Tests Test 03/10/17 04:45 White Blood Count 6.9 K/UL (4.8-10.8) Red Blood Count 3.79 M/UL (4.20-5.40) L Hemoglobin 10.3 G/DL (12.0-16.0) L Hematocrit 33.7 % (37.0-47.0) L Mean Corpuscular Volume 89 FL (80-99) Mean Corpuscular Hemoglobin 27.2 PG (27.0-31.0) Mean Corpuscular Hemoglobin Concent 30.5 G/DL (32.0-36.0) L Red Cell Distribution Width 14.6 % (11.6-14.8) Platelet Count 253 K/UL (150-450) Mean Platelet Volume 8.2 FL (6.5-10.1) Neutrophils (%) (Auto) 59.1 % (45.0-75.0) Lymphocytes (%) (Auto) 21.6 % (20.0-45.0) Monocytes (%) (Auto) 15.6 % (1.0-10.0) H Eosinophils (%) (Auto) 2.2 % (0.0-3.0) Basophils (%) (Auto) 1.6 % (0.0-2.0) Sodium Level 146 mEQ/L (135-145) H Potassium Level 3.5 mEQ/L (3.4-4.9) Chloride Level 106 mEQ/L (98-107) Carbon Dioxide Level 25 mEQ/L (20-30) Anion Gap 15 (5-15) Blood Urea Nitrogen 8 mg/dL (7-23) Creatinine 0.7 mg/dL (0.5-0.9) Estimat Glomerular Filtration Rate > 60 mL/min (>60) Glucose Level 149 mg/dL (74-106) H Calcium Level 8.4 mg/dL (8.6-10.2) L Magnesium Level 2.0 mg/dL (1.7-2.5) Total Bilirubin 0.2 mg/dL (0.0-1.2) Aspartate Amino Transf (AST/SGOT) 8 U/L (5-40) Alanine Aminotransferase (ALT/SGPT) 5 U/L (3-33) Alkaline Phosphatase 85 U/L (35-104) Total Protein 7.4 g/dL (6.6-8.7) Albumin 2.1 g/dL (3.5-5.2) L Globulin 5.3 g/dL Albumin/Globulin Ratio 0.3 (1.0-2.7) L LAI WATSON March 10, 2017 12:53
--- NOTE | 2017-03-10 18:29 | Progress Note ---
DATE: 03/10/2017 CARDIOLOGY PROGRESS NOTE SUBJECTIVE: The patient is without distress. On ventilator support. Non-communicative. OBJECTIVE: VITAL SIGNS: Blood pressure 140/79, pulse 89, and respirations 20. LUNGS: Bilateral breath sounds. Scattered rhonchi. HEART: Regular rhythm and rate. Normal S1, S2. Monitor reveals sinus rhythm. ABDOMEN: Soft. G-tube intact. EXTREMITIES: No edema. LABORATORY DATA: White count 6.9 and hemoglobin 10.3. Magnesium 2.0, sodium 146, potassium 3.5, bicarbonate 25, BUN 8, and creatinine 0.7. Albumin 2.1. IMPRESSION: 1. Respiratory failure. 2. Pneumonia. 3. Resolved lactic acidosis. 4. Resolved sepsis with shock. 5. Paroxysmal atrial ectopy. 6. Chronic diastolic congestive heart failure. 7. Dehydration. 8. Hypernatremia. 9. Anemia of chronic disease. PLAN: 1. Hypotonic IV fluids. 2. Antimicrobials per Infectious Disease home energy consultant. 3. Nutrition by G-tube including protein supplement. 4. Chronic ventilator support. 5. Monitor cardiorenal parameters and volume status. 6. No additional cardiovascular medications presently indicated. Benedict Gayle M.D. DR: SATHISH JOB#: [id number] CC:
--- NOTE | 2017-03-10 22:26 | General Progress Note ---
Assessment/Plan Assessment/Plan Assessment - GT site leak - apparently improved / resolved - OBS/obtunded - s/p Trach Recommendations - advance TF - monitor for leak - continue PPI - Reglan trial - check C Diff - await response from family re anemia Subjective Allergies: Coded Allergies: HEPARIN (PORCINE) (Verified Allergy, Unknown, 03/31/10) HEPARIN ANALOGUES (Unverified Allergy, Unknown, UNK, 12/18/12) Subjective Non verbal back on feeds tolerating well for discharge today Objective Last 24 Hour Vital Signs Date Time Temp Pulse Resp B/P Pulse Ox O2 Delivery O2 Flow Rate FiO2 03/10/17 14:54 78 18 28 03/10/17 14:40 100 03/10/17 13:15 107 20 28 03/10/17 12:31 28 03/10/17 12:00 98.1 94 19 151/85 99 Mechanical Ventilator 28 03/10/17 10:36 82 18 28 03/10/17 09:02 80 18 28 03/10/17 08:27 79 135/70 03/10/17 08:00 85 03/10/17 08:00 98.1 81 18 137/81 99 Mechanical Ventilator 28 03/10/17 08:00 28 03/10/17 07:15 82 20 28 03/10/17 05:07 89 20 28 03/10/17 04:00 28 03/10/17 04:00 86 03/10/17 04:00 99.1 89 20 140/79 98 Nasal Cannula 2.0 03/10/17 03:14 87 19 28 03/10/17 01:01 88 21 28 03/10/17 00:00 28 03/10/17 00:00 99.1 79 20 127/98 98 Nasal Cannula 2.0 03/10/17 00:00 84 03/09/17 23:06 85 19 28 Intake and Output 03/09/17 03/10/17 19:00 07:00 Intake Total 1410 ml 1126.25 ml Output Total 1225 ml 1050 ml Balance 185 ml 76.25 ml Intake Free Water 560 ml IV Total 300 ml 636.25 ml Tube Feeding 450 ml 490 ml Other 100 ml Output Urine Total 1175 ml 1000 ml Stool Total 50 ml 50 ml # Bowel Movements 3 Laboratory Tests 03/10/17 04:45: White Blood Count 6.9, Red Blood Count 3.79L, Hemoglobin 10.3L, Hematocrit 33.7L , Mean Corpuscular Volume 89, Mean Corpuscular Hemoglobin 27.2, Mean Corpuscular Hemoglobin Concent 30.5L, Red Cell Distribution Width 14.6, Platelet Count 253, Mean Platelet Volume 8.2, Neutrophils (%) (Auto) 59.1, Lymphocytes (%) (Auto) 21.6, Monocytes (%) (Auto) 15.6H, Eosinophils (%) (Auto) 2.2, Basophils (%) (Auto) 1.6, Sodium Level 146H, Potassium Level 3.5, Chloride Level 106, Carbon Dioxide Level 25, Anion Gap 15, Blood Urea Nitrogen 8, Creatinine 0.7, Estimat Glomerular Filtration Rate > 60, Glucose Level 149H, Calcium Level 8.4L, Magnesium Level 2.0, Total Bilirubin 0.2, Aspartate Amino Transf (AST/SGOT) 8, Alanine Aminotransferase (ALT/SGPT) 5, Alkaline Phosphatase 85, Total Protein 7.4, Albumin 2.1L, Globulin 5.3, Albumin/Globulin Ratio 0.3L Height (Feet): 5 Height (Inches): 2.00 Weight (Pounds): 150 Objective obtunded/ nonverbal NCAT supple CTA RRR Abd soft , GT site OK no edema SERGIO COWART March 10, 2017 22:26
--- NOTE | 2017-03-11 08:23 | Discharge Summary ---
Discharge Summary Hospital Course Date of Admission March 04, 2017 at 12:57 Date of Discharge March 10, 2017 at 16:35 Admitting Diagnosis anemia/fever/UTI (vent) HPI Jennifer De Dios is a 72 year old female who was admitted on March 04, 2017 at 12: 57 for Anemia, Fever, Urinary Tract Infection (Vent) Hospital Course dc summary#[id number] Discharge Medications Continued Medications: Acetaminophen (Acetaminophen) 650 Mg/20.3 Ml Solution 650 MG GT Q4HR PRN for Prn Headache/Temp > 101 Aspirin* (Aspir-Low*) 81 Mg Tablet. 81 MG GT DAILY Bisacodyl (Dulcolax) 10 Mg Supp.rect 10 MG RC DAILY PRN for Constipation, SUPP Give if MOM is ineffective Docusate Sodium* (Docusate Sodium*) 250 Mg Capsule 250 MG GT TWICE A DAY Epoetin Ilia (Epogen) 10,000 Unit/1 Ml Vial 95362 UNIT SUBQ 3XW, VIAL Hydrocodone Bit/Acetaminophen 5-325* (Pinole 5-325*) 1 Each Tablet 1 TAB GT Q4H PRN for For Pain, TAB 0 Refills Magnesium Hydroxide* (Milk Of Magnesia*) 400 Mg/5 Ml Oral.susp 30 ML GT DAILY PRN for Constipation, ML Metoprolol Tartrate* (Metoprolol Tartrate*) 25 Mg Tablet 12.5 MG GT DAILY, TAB Hold for SBP<120 Multivitamin with Minerals (Multivitamins with Minerals) 1 Each Tablet 15 ML GT DAILY, TAB Na Phos,M-B/Na Phos,Di-Ba* (Fleet Enema*) 133 Ml Enema 133 ML RECTAL PRN Omeprazole (Omeprazole) 20 Mg Capsule. 10 MG GT DAILY, CAP Ondansetron* (Zofran*) 4 Mg Tablet 4 MG GT Q6H PRN for Nausea & Vomiting Valproate Sodium (Valproic Acid) 500 Mg/10 Ml Solution 750 MG GT Q12HR Zinc Sulfate (Zinc Sulfate) 220 Mg Tablet 220 MG GT DAILY [Cranberry] () 30 ML GT BID Give 30mL of Reckcgflu-GvmS-Zratru via G-Tube BID for UTI prophylaxis Discharge Condition Upon Discharge: stable Discharge Disposition [facility] Discharge Diagnoses: Discharge Instructions Discharge Instructions Special Instructions I have been assigned to complete a D/C Summary on this account. I was not involved in the patient management Diana Gonzalez NP ([facility]) March 11, 2017 08:23
--- NOTE | 2017-03-12 01:59 | Discharge Summary 2 SIG ---
DATE OF ADMISSION: 03/04/2017 DATE OF DISCHARGE: 03/10/2017 REASON FOR ADMISSION: 72-year-old female, chronically ventilator dependent with tracheostomy, history of seizure disorder, diabetes, hypertension, chronic encephalopathy, CVA, and dysphagia G-tube, came from the assisted for evaluation of anemia. Apparently, a laboratory work in the assisted revealed evidence of anemia. Workup in the emergency room revealed that the patient had fever, leukocytosis, and elevated lactic acid. Urinalysis revealed numerous WBC, hemoglobin was 6.9, hematocrit 23, and WBC -13. The patient was also hypotensive. The patient was admitted for further management. ADMITTING DIAGNOSES: 1. Sepsis. 2. Initial shock 3. Anemia. 4. Possible gastrointestinal bleeding. 5. Diabetes. 6. History of hypertension. 7. Seizure disorder. 8. Chronic ventilator-dependent respiratory failure with tracheostomy status. 9. Dysphagia, gastrostomy tube. 10. History of cerebrovascular accident. 11. Chronic encephalopathy. HOSPITAL COURSE: The patient was admitted to [facility]. The patient was started on IV fluid resuscitation. The patient was pancultured, started on empiric IV antibiotics. ID doctor consult was requested. Blood cultures were negative. Stool for C. difficile was negative. Urine culture revealed Proteus ESBL. The patient was on the IV antibiotics, status post treatment for urinary tract infection. Per ID doctor, observe the patient off antibiotics. Overseer [employer] followed the patient due to the chronic respiratory failure, ventilator dependent. Ventilator support and tracheostomy care was provided. Baseline ABG was stable on current ventilator settings. Titrate settings as needed. Pulmonary toilet was provided. No signs of respiratory distress. GI consult was requested. The family declined any GI procedure. The patient had a stool OB negative x2. The lowest hemoglobin - 5.3 and hematocrit -16.4. The patient was transfused with a total of 3 units of packed red blood cells. Hemoglobin prior to discharge - 10.3 and hematocrit -33.7. GI closely followed. The patient apparently had a leak at the G-tube site which resolved. Tube feeding was restarted, a trial of Reglan initiated, the patient was able to tolerate tube feeding. Strict aspiration and reflux precautions were maintained. The patient started on PPI. Electrolyte imbalances were addressed. Hypokalemia and hypomagnesemia were corrected. [employer] Worker followed the patient due to the chronic diastolic CHF. Echocardiogram revealed preserved ejection fraction of 65% and right ventricular systolic pressure of 40 as well as evidence of left ventricular hypertrophy. [employer] Worker recommended to monitor cardiorenal parameters and volume status. For hypernatremia and initial dehydration, hypotonic IV fluids were administered. The patient exhibited a paroxysmal atrial ectopy on telemetry. After hypotension resolved (initially with shock), a low dose of beta-simi was added and the patient remained normotensive with a heart rate controlled. Blood sugar was managed with sliding scale of insulin and Levemir and was stable. Seizure precautions were maintained. Depakote was continued.. No evidence of seizure activity while in the hospital. Wound care nurse seen and evaluated the patient for decubitus ulcers present on admission. Wound care was provided as per wound care nurse recommendation. The patient was stable for discharge to correction facility. Follow up with the clinical quality assurance specialist and primary doctor at the facility. DISCHARGE DIAGNOSES: 1. Sepsis. 2. Initial septic shock,- resolved. 3. Urinary tract infection with Proteus Extended-Spectrum Beta-Lactamase 4. Ventilator-dependent respiratory failure / tracheostomy status . 5. Anemia, status post blood transfusion. 6. Chronic encephalopathy. 7. Dysphagia, gastrostomy tube. 8. Gastrostomy tube site leak, resolved. 9. Chronic diastolic CHF 10. Dehydration 11. Hypernatremia 12. Paroxysmal atrial fibrillation 13. Electrolyte imbalance ( hypokalemia, hypomagnesemia) 14. Seizure disorder. 15. Diabetes mellitus. 16. History of hypertension. 17. History of cerebrovascular accident. 18. Sacral decubitus stage IV, present on admission. 19. Coccyx decubitus stage III, present on admission. DISCHARGE MEDICATIONS: See medication reconciliation list. DISCHARGE INSTRUCTIONS: The patient discharged to subacute correction facility, follow up with the clinical quality assurance specialist and primary medical doctor at the facility. Leighton Zhou M.D. I have been assigned to dictate discharge summary on this account and I was not involved in the patient's management. Diana Gonzalez ([facility].PRuss DR: MARAH JOB#: [id number] CC: SANIYA
== END 2017-03-10 16:35 | DRG 870 ==
LOC: EDBD 09:59 → EMR 10:40 → EDBEDREQ 12:29 → 2W 12:57 → EDBEDREQ 17:09
PROC: 30233N1 Transfusion of Nonautologous Red Blood Cells into Peripheral Vein, Percutaneous Approach (ICD-10-PCS; principal; 2017-03-04)
PROC: 5A1955Z Respiratory Ventilation, Greater than 96 Consecutive Hours (ICD-10-PCS; principal; 2017-03-04)
DX: A41.9 Sepsis, unspecified organism (principal); R65.21 Severe sepsis with septic shock; E43 Unspecified severe protein-calorie malnutrition; G93.40 Encephalopathy, unspecified; L89.154 Pressure ulcer of sacral region, stage 4; Z99.11 Dependence on respirator [ventilator] status; I50.33 Acute on chronic diastolic (congestive) heart failure; J96.10 Chronic respiratory failure, unspecified whether with hypoxia or hypercapnia; L89.153 Pressure ulcer of sacral region, stage 3; E87.0 Hyperosmolality and hypernatremia; K92.2 Gastrointestinal hemorrhage, unspecified; Z43.1 Encounter for attention to gastrostomy; N39.0 Urinary tract infection, site not specified; I11.0 Hypertensive heart disease with heart failure; Z88.8 Allergy status to other drugs, medicaments and biological substances; E11.9 Type 2 diabetes mellitus without complications; Z43.0 Encounter for attention to tracheostomy; E86.0 Dehydration; R13.10 Dysphagia, unspecified; B96.4 Proteus (mirabilis) (morganii) as the cause of diseases classified elsewhere; Z16.12 Extended spectrum beta lactamase (ESBL) resistance; I48.0 Paroxysmal atrial fibrillation; E87.6 Hypokalemia; E83.42 Hypomagnesemia; G40.909 Epilepsy, unspecified, not intractable, without status epilepticus; D64.9 Anemia, unspecified; Z79.4 Long term (current) use of insulin; I69.319 Unspecified symptoms and signs involving cognitive functions following cerebral infarction; F01.50 Vascular dementia, unspecified severity, without behavioral disturbance, psychotic disturbance, mood disturbance, and anxiety; I51.3 Intracardiac thrombosis, not elsewhere classified
CPT/HCPCS: 36415; 36600; 71010; 74000; 80053; 80202; 81003; 82270; 82550; 82803; 82962; 83605; 83735; 83880; 84443; 84484; 85007; 85025; 85610; 85730; 86850; 86870; 86880; 86900; 86901; 86904; 86920; 87040; 87070; 87081; 87086; 87181; 87205; 87324; 93005; 93306; 94002; 94003; 94640; 94664; J2765; J7620; S5561

== ENCOUNTER 2017-03-28 15:52 | Inpatient (IN) | payer MEDICARE, MEDICAID ==
[~2017-03-28] VITALS: Ht 160 cm; Wt 64.9 kg
[~2017-03-28 15:52] MED LIST changes: +CRANBERRY GT; +DOCUSATE SODIU250 MG GT; +FLEET ENEMA133 ML RECTAL; +NORCO 5-325 TA1 EACH GT; +TYLENOL650 MG/20. GT; +ZINC SULFATE220 M2 GT; +ZOFRAN4 M3 GT; +ZOFRAN4 M3 ORAL
[2017-03-28 16:00] VITALS: BP 152/78
[2017-03-28 16:40] LABS: APPEARANCE,URINE SLIGHTLY CLOUDY; KETONES,URINE NEGATIVE (NEGATIVE); LEUKOCYTE ESTERASE ,URINE 3+ (NEGATIVE); NITRITE,URINE NEGATIVE (NEGATIVE); PH,URINE 7 (4.5-8.0); PROTEIN,URINE 3+ (NEGATIVE); UROBILINOGEN,URINE NORMAL MG/DL (0.0-1.0)
[2017-03-28 16:40] LABS: BASOPHILS % (AUTO) 1.8 % (0.0-2.0); EOSINOPHILS % (AUTO) 3.8 % (0.0-3.0); MEAN CORPUSCULAR HEMOGLOBIN 29.9 PG (27.0-31.0); MEAN CORPUSCULAR HGB CONC 34.6 G/DL (32.0-36.0); MEAN CORPUSCULAR VOLUME 86 FL (80-99); MEAN PLATELET VOLUME 12.2 FL (6.5-10.1); MONOCYTES % (AUTO) 9.5 % (1.0-10.0); PLATELET COUNT 162 K/UL (150-450); RED BLOOD COUNT 3.36 M/UL (4.20-5.40); RED CELL DISTRIBUTION WIDTH 14.8 % (11.6-14.8); WHITE BLOOD COUNT 13.9 K/UL (4.8-10.8)
--- NOTE | 2017-03-28 16:41 | Diagnostic Imaging Report ---
Indication: SOB Technique: One view of the chest Comparison: 03/04/2017 Findings: Tracheostomy remains. There is some atelectasis at the left lung base. There may be some pleural fluid at left lung base. There is some right perihilar atelectasis as well. There are prominent right infrahilar particular markings, which could represent infiltrate. The heart size is normal. Impression: Possible right infrahilar infiltrate. Suspect small left pleural effusion Bilateral atelectasis
[2017-03-28 16:56] LABS: TROPONIN I < 0.30 ng/mL (<=0.30)
[2017-03-28 16:57] LABS: ALANINE AMINOTRANSFERASE 7 U/L (3-33); ALBUMIN/GLOBULIN RATIO 0.4 (1.0-2.7); ANION GAP 15 (5-15); ASPARTATE AMINO TRANSFERASE 30 U/L (5-40); CALCIUM 9.4 mg/dL (8.6-10.2); CARBON DIOXIDE 30 mEQ/L (20-30); CHLORIDE 92 mEQ/L (98-107); CREATININE 0.6 mg/dL (0.5-0.9); GLOMERULAR FILTRATION RATE > 60 mL/min (>60); HEMOLYSIS 167; POTASSIUM 4.8 mEQ/L (3.4-4.9); REFLEX LACTIC ACID YES OR NO YES; SODIUM 137 mEQ/L (135-145); TOTAL PROTEIN 8.4 g/dL (6.6-8.7)
[2017-03-28] MEDS ORDERED: LANSOPRAZOLE30 M2 GT (16:58)
[2017-03-28] MEDS ORDERED: HUMALOG100 UNIT/3 SUBQ (16:58)
[2017-03-28 17:02] LABS: RBC,URINE 15-20 /HPF (0 - 2); WBC,URINE TNTC /HPF (0 - 2)
[2017-03-28 17:03] LABS: BACTERIA,URINE MANY /HPF; SQUAMOUS EPITHELIAL CELL,UR MODERATE /LPF (NONE/OCC)
[2017-03-28 17:04] LABS: YEAST,URINE MANY /HPF
[2017-03-28 17:07] LABS: CKMB < 1.5 ng/mL (< 3.8)
[2017-03-28] MEDS ORDERED: Cefepime HCl 1 GM in NS 55 ML IV ONE (17:15)
[2017-03-28] MEDS ORDERED: Azithromycin 500 MG in NS 275 ML IV ONE (17:15)
[2017-03-28] MEDS ORDERED: NS 1000ml 1,900 ML IVLG ONE (17:15)
[2017-03-28] MEDS ORDERED: Cefepime 1gm vial ONE (17:24)
[2017-03-28 17:40] VITALS: BP 147/90
[2017-03-28] MEDS ORDERED: Azithromycin Inj IV ONE (17:56)
--- NOTE | 2017-03-28 18:13 | Emergency Room Report ---
History of Present Illness General Chief Complaint: Upper Respiratory Illness Source: Medical Record, EMS Present Illness HPI 72-year-old female presents to ED for evaluation of thick tracheal secretions x2 days. Per EMS nursing staff was having a hard time suctioning his secretions at the long term. PMD is Dr. Judge. He says that the patient was started on Levaquin and amikacin yesterday for presumed pneumonia. Patient is nonverbal at baseline. Patient has tracheostomy and G-tube. Patient showing no signs of distress upon arrival. No reported fevers or chills. No reported shortness of breath. No nausea or vomiting. PMD states that family requested that patient be transferred to hospital for further care. No other aggravating relieving factors. Denies any other associated symptoms Allergies: Coded Allergies: HEPARIN (Unverified Allergy, Unknown, 03/28/17) HEPARIN (PORCINE) (Verified Allergy, Unknown, 03/31/10) HEPARIN ANALOGUES (Unverified Allergy, Unknown, UNK, 12/18/12) Patient History Past Medical History: DM, CVA/TIA, dementia Past Surgical History: other - trach/gtube Pertinent Family History: none Social History: Denies: alcohol use, drug use, smoking Now: No Immunizations: UTD Reviewed Nursing Documentation: PMH: Agreed, PSxH: Agreed Nursing Documentation-PMH Past Medical History: No History, Except For Hx Cardiac Problems: Yes - Anemia, Stage 4 pressure ulcer Hx Hypertension: No Hx Pacemaker: No Hx Asthma: No - Tracheostomy Hx COPD: No Hx Diabetes: Yes Hx Cancer: No Hx Gastrointestinal Problems: Yes Hx Dialysis: No Hx Neurological Problems: Yes Hx Cerebrovascular Accident: Yes Hx Dementia: Yes Hx Seizures: Yes Hx Epilepsy: Yes Hx Aphasia: Yes Hx Dysphasia: Yes Hx Weakness: Yes Hx Neurologic Surgery: No Hx Brain Shunt: No Review of Systems All Other Systems: negative except mentioned in HPI Physical Exam Vital Signs Date Time Temp Pulse Resp B/P Pulse Ox O2 Delivery O2 Flow Rate FiO2 03/28/17 15:52 98.4 107 22 99 Mechanical Ventilator 30 03/28/17 16:00 152/78 Sp02 EP Interpretation: reviewed, normal General Appearance: other - nonverbal Head: normocephalic Eyes: bilateral eye PERRL, bilateral eye normal inspection ENT: normal ENT inspection Neck: tracheotomy Respiratory: crackles Cardiovascular #1: regular rate, rhythm, no edema Gastrointestinal: normal inspection Rectal: deferred Genitourinary: no CVA tenderness Musculoskeletal: normal inspection Neurologic: other - nonverbal Psychiatric: other - nonverbal Skin: normal inspection Lymphatic: normal inspection Medical Decision Making Diagnostic Impression: Primary Impression: Pneumonia Qualified Codes: J18.1 - Lobar pneumonia, unspecified organism Additional Impressions: Sepsis Qualified Codes: A41.9 - Sepsis, unspecified organism UTI (urinary tract infection) Qualified Codes: N39.0 - Urinary tract infection, site not specified ER Course Hospital Course 72-year-old female presents to ED with thick tracheal secretions. Started yesterday on antibiotics for pneumonia Differential diagnoses include: Pneumonia, CHF exacerbation, pneumothorax, fluid overload Clinical course Patient placed on stretcher. On probation counselor. Respiratory therapist provided suctioning. I ordered labs, IV fluids, EKG, chest x-ray, blood cultures, UA. Labs -leukocytosis noted, hemoglobin/hematocrit stable, electrolytes okay, lactate > 2, troponins negative . UA + bacteria CXR - R perhilar infiltrate. L effusion Antibiotics given. Given 30 mL per KG fluid bolus. Case discussed with Dr. Judge and he agreed to the patient to his service for further care and support I feel this is a highly complex case requiring extensive working including EKG/ Rhythm strip, Xray/CT/US, Blood/urine lab work, repeat exams while in ED, and administration of strong opiates/narcotics for pain control, admission to hospital or close patient follow up. Diagnosis - pneumonia, sepsis, UTI Patient admitted to [facility] in serious condition Labs Test 03/28/17 16:15 03/28/17 16:17 03/28/17 17:50 White Blood Count 13.9 K/UL (4.8-10.8) Red Blood Count 3.36 M/UL (4.20-5.40) Hemoglobin 10.0 G/DL (12.0-16.0) Hematocrit 29.0 % (37.0-47.0) Mean Corpuscular Volume 86 FL (80-99) Mean Corpuscular Hemoglobin 29.9 PG (27.0-31.0) Mean Corpuscular Hemoglobin Concent 34.6 G/DL (32.0-36.0) Red Cell Distribution Width 14.8 % (11.6-14.8) Platelet Count 162 K/UL (150-450) Mean Platelet Volume 12.2 FL (6.5-10.1) Neutrophils (%) (Auto) 56.0 % (45.0-75.0) Lymphocytes (%) (Auto) 29.0 % (20.0-45.0) Monocytes (%) (Auto) 9.5 % (1.0-10.0) Eosinophils (%) (Auto) 3.8 % (0.0-3.0) Basophils (%) (Auto) 1.8 % (0.0-2.0) Sodium Level 137 mEQ/L (135-145) Potassium Level 4.8 mEQ/L (3.4-4.9) Chloride Level 92 mEQ/L (98-107) Carbon Dioxide Level 30 mEQ/L (20-30) Anion Gap 15 (5-15) Blood Urea Nitrogen 20 mg/dL (7-23) Creatinine 0.6 mg/dL (0.5-0.9) Estimat Glomerular Filtration Rate > 60 mL/min (>60) Glucose Level 117 mg/dL (74-106) Lactic Acid Level 2.90 mmol/L (0.66-2.22) Calcium Level 9.4 mg/dL (8.6-10.2) Total Bilirubin 0.2 mg/dL (0.0-1.2) Aspartate Amino Transf (AST/SGOT) 30 U/L (5-40) Alanine Aminotransferase (ALT/SGPT) 7 U/L (3-33) Alkaline Phosphatase 83 U/L (35-104) Total Creatine Kinase 22 U/L (26-140) Creatine Kinase MB < 1.5 ng/mL (< 3.8) Creatine Kinase MB Relative Index Troponin I < 0.30 ng/mL (<=0.30) Pro-B-Type Natriuretic Peptide 380 pg/mL (0-125) Total Protein 8.4 g/dL (6.6-8.7) Albumin 2.7 g/dL (3.5-5.2) Globulin 5.7 g/dL Albumin/Globulin Ratio 0.4 (1.0-2.7) Urine Color Yellow Urine Appearance Slightly cloudy Urine pH 7 (4.5-8.0) Urine Specific Reading 1.005 (1.005-1.035) Urine Protein 3+ (NEGATIVE) Urine Glucose (UA) Negative (NEGATIVE) Urine Ketones Negative (NEGATIVE) Urine Occult Blood 5+ (NEGATIVE) Urine Nitrite Negative (NEGATIVE) Urine Bilirubin Negative (NEGATIVE) Urine Urobilinogen Normal MG/DL (0.0-1.0) Urine Leukocyte Esterase 3+ (NEGATIVE) Urine RBC 15-20 /HPF (0 - 2) Urine WBC Tntc /HPF (0 - 2) Urine Squamous Epithelial Cells Moderate /LPF (NONE/OCC) Urine Bacteria Many /HPF (NONE) Urine Yeast Many /HPF (NONE) EKG Diagnostic Results Rate: tachycardiac Rhythm: NSR ST Segments: no acute changes ASA given to the pt in ED: No Rhythm Strip Diag. Results EP Interpretation: yes Rhythm: NSR, no PVC's, no ectopy Chest X-Ray Diagnostic Results EP Interpretation: No Findings: no pneumothorax, no acute cardiopulmonary disease, other - R perihilar infiltrate. trach. L effusion Number of Views: 1 Last Vital Signs Date Time Temp Pulse Resp B/P Pulse Ox O2 Delivery O2 Flow Rate FiO2 03/28/17 17:40 99.9 114 18 147/90 99 Mechanical Ventilator 30 Status: improved Disposition: ADMITTED INPATIENT Condition: Serious Referrals: ALBER JUDGE (PCP) YEHUDA ABRAHAM M.D. March 28, 2017 18:13
[2017-03-28 18:41] VITALS: BP 142/83
[2017-03-28 19:11] VITALS: BP 130/78
[2017-03-28] MEDS ORDERED: Norco 5mg/325mg tab GT PRN (19:30)
[2017-03-28] MEDS ORDERED: Milk of Magnesia 30ml Ud GT PRN (19:30)
[2017-03-28] MEDS ORDERED: Fleet's Enema 133ml RECTAL PRN (19:30)
[2017-03-28] MEDS ORDERED: DuoNeb 0.5-3(2.5)mg/3ml neb HHN PRN (19:30)
[2017-03-28 20:23] VITALS: BP 135/83
[2017-03-28] MEDS ORDERED: Cefepime HCl 1 GM in D5W 55 ML IVPB SCH (21:00)
[2017-03-28] MEDS: Valproic Acid 250mg/5ml Liquid NG SCH (22:07)
[2017-03-28] MEDS: Acetaminophen 650mg/20.3ml GT PRN (22:14)
[2017-03-28] MEDS ORDERED: ACETAMINOPHEN325 M1 GT (23:38)
[2017-03-28] MEDS ORDERED: PREVACID30 MG GT (23:38)
[2017-03-28] MEDS ORDERED: AMIKIN500 MG/2 M HHN (23:38)
[2017-03-28] MEDS ORDERED: IBUPROFEN600 MG GT (23:38)
[2017-03-28] MEDS ORDERED: NORCO 5-325 TA1 EACH GT ×2 (23:38)
[2017-03-28] MEDS ORDERED: DULCOLAX10 MG RC (23:38)
[2017-03-28] MEDS ORDERED: MILK OF MA400 MG/51 GT (23:38)
[2017-03-29] VITALS: BP 135/75
[2017-03-29 04:00] VITALS: BP 138/75
[2017-03-29 04:32] LABS: ALANINE AMINOTRANSFERASE 5 U/L (3-33); ALBUMIN/GLOBULIN RATIO 0.5 (1.0-2.7); ANION GAP 14 (5-15); ASPARTATE AMINO TRANSFERASE 10 U/L (5-40); CALCIUM 8.7 mg/dL (8.6-10.2); CARBON DIOXIDE 27 mEQ/L (20-30); CHLORIDE 105 mEQ/L (98-107); CREATININE 0.6 mg/dL (0.5-0.9); GLOMERULAR FILTRATION RATE > 60 mL/min (>60); HEMOLYSIS 0; POTASSIUM 3.2 mEQ/L (3.4-4.9); SODIUM 146 mEQ/L (135-145); TOTAL PROTEIN 7.4 g/dL (6.6-8.7)
[2017-03-29 04:34] LABS: EOSINOPHILS % (AUTO) 1.5 % (0.0-3.0); LYMPHOCYTES % (AUTO) 33.9 % (20.0-45.0); MEAN CORPUSCULAR HEMOGLOBIN 27.6 PG (27.0-31.0); MEAN CORPUSCULAR VOLUME 86 FL (80-99); MONOCYTES % (AUTO) 11.1 % (1.0-10.0); NEUTROPHILS % (AUTO) 52.6 % (45.0-75.0); PLATELET COUNT 159 K/UL (150-450); RED BLOOD COUNT 3.27 M/UL (4.20-5.40); RED CELL DISTRIBUTION WIDTH 15.4 % (11.6-14.8); WHITE BLOOD COUNT 12.7 K/UL (4.8-10.8)
[2017-03-29] MEDS ORDERED: KCl 10% 40mEq/30ml liquid NG ONE (08:30)
[2017-03-29] MEDS: Metoprolol 25mg tab GT SCH (08:53)
[2017-03-29] MEDS: metFORMIN 500mg tab GT SCH ×2 (08:53→17:38)
[2017-03-29] MEDS: Multivitamin w/Minerals tab ORAL SCH (08:54)
[2017-03-29] MEDS: Docusate 250mg cap ORAL SCH ×2 (08:54→17:38)
[2017-03-29] MEDS: Zinc Sulfate 220mg cap GT SCH (08:54)
[2017-03-29] MEDS: Valproic Acid 250mg/5ml Liquid NG SCH ×2 (08:55→20:19)
[2017-03-29] MEDS: Benazepril 10mg tab GT SCH (08:55)
[2017-03-29] MEDS: Aspirin EC 81mg tab ORAL SCH (08:56)
[2017-03-29 11:29] LABS: REFLEX LACTIC ACID YES OR NO YES
[2017-03-29 12:00] VITALS: BP 115/63
[2017-03-29 16:15] VITALS: BP 110/61
[2017-03-29] MEDS ORDERED: Tubing IV Secondary IV ONE (16:25)
[2017-03-29 20:00] VITALS: BP 141/67
--- NOTE | 2017-03-29 20:15 | History and Physical Report ---
DATE OF ADMISSION: 03/28/2017 CHIEF COMPLAINT: Sepsis, pneumonia, and lactic acidosis. HISTORY OF PRESENT ILLNESS: The patient is a 72-year-old female. She has a history of stroke, encephalopathy, diabetes, hypertension, and seizure disorder. She has a history of chronic respiratory failure and tracheostomy dependent. She was transferred from long term facility with complaints of worsening cough, congestion, and subjective fevers. The patient was recently diagnosed with pneumonia, started on antibiotic therapy, but her condition was not improving. Family requested that she be transferred for evaluation at the acute hospital. On evaluation in the emergency room, the patient had evidence of a right-sided infiltrate. She had an elevated lactic acid level and white count of 15,000. The patient had three cultures and resumed on broad-spectrum IV antibiotic therapy and is now admitted for further evaluation and care. She is unresponsive and nonverbal at baseline. PAST MEDICAL HISTORY: As above. PAST SURGICAL HISTORY: Tracheostomy and a G-tube. CURRENT MEDICATIONS: Reconciled and reviewed. ALLERGIES: Heparin. FAMILY HISTORY: Noncontributory. SOCIAL HISTORY: There is no known history of tobacco, ethanol, or drugs. REVIEW OF SYSTEMS: From the patient is unobtainable as she is nonverbal. PHYSICAL EXAMINATION: VITAL SIGNS: Temperature is 98.6, pulse 100, respirations 19, and blood pressure 138/75. GENERAL: The patient is well-developed, chronically ill-appearing female. She is awake, but nonverbal. She does not track. She does not follow commands. NECK: Supple. There is no jugular venous distention. HEART: Regular rate and rhythm. LUNGS: Bilateral rhonchi. ABDOMEN: Soft, nontender, and nondistended. EXTREMITIES: Without clubbing, cyanosis, or edema. LABORATORY DATA: Sodium is 146 and potassium is 3.2. White count 14,000, hemoglobin 10, and hematocrit 29. Lactic acid level is 3.7. ASSESSMENT: This is a unfortunate female with a history of chronic respiratory failure, encephalopathy, stroke, diabetes, and seizure disorder, admitted with sepsis secondary to pneumonia. PROBLEM LIST: 1. Sepsis. 2. Pneumonia. 3. Lactic acidosis. 4. Toxic metabolic encephalopathy. 5. History of seizure disorder. 6. Diabetes. PLAN: 1. IV antibiotics. 2. ID consultation. 3. Pulmonary consultation to manage the patient's ventilator. 4. Continue G-tube feeds. 5. We will replace electrolytes. 6. Continue DVT and stress ulcer prophylaxis. 7. Overall prognosis is poor. Leighton Zhou M.D. DR: PA JOB#: [id number] CC:
[2017-03-29] MEDS: Acetaminophen 650mg/20.3ml GT PRN (20:24)
--- NOTE | 2017-03-29 22:45 | History and Physical Report ---
DATE OF ADMISSION: 03/28/2017 REASON FOR ADMISSION: Tracheal secretion and congestion. HISTORY OF PRESENT ILLNESS: This is a 72-year-old female, who presents with increasing congestion and respiratory distress. The patient required frequent suctioning and the patient was started on p.o. amikacin and Levaquin. After she was admitted for evaluation and interventions. No reported fever or chills. No reported shortness of breath. Jaime Heller M.D. DR: GARRISON JOB#: [id number] CC:
[2017-03-30] VITALS (7 sets, daily range): BP systolic 119–161; BP diastolic 49–94
--- NOTE | 2017-03-30 00:01 | Consultation ---
DATE OF CONSULTATION: 03/29/2017 INFECTIOUS DISEASES CONSULTATION: CONSULTING PHYSICIAN: Halie Aguilar M.D. REFERRING PHYSICIAN: Leighton Zhou M.D. REASON FOR CONSULTATION: Pneumonia. HISTORY OF PRESENTING ILLNESS: This is a 72-year-old lady with a history of CVA, diabetes, dementia, and respiratory failure, who came in because she had increasing secretions. She was found to have a pneumonia and an Infectious Diseases consultation has been obtained for antibiotics. PAST MEDICAL HISTORY: 1. History of diabetes. 2. CVA. 3. Dementia. 4. Respiratory failure, status post tracheostomy. 5. Status post G-tube placement. 6. Dyslipidemia. 7. Decubitus ulcers. 8. History of seizures. MEDICATIONS: As an inpatient, the patient is on Epogen, aspirin, benazepril, Colace, Prevacid, metformin, metoprolol, multivitamin, zinc sulfate, valproic acid, cefepime, Tylenol, Dulcolax, [place], milk of magnesia, sodium phosphate, enema, Zofran, albuterol, and ipratropium. ALLERGIES: The patient is allergic to heparin. SOCIAL HISTORY: Unknown. FAMILY HISTORY: Unknown. REVIEW OF SYSTEMS: Unable to obtain currently. PHYSICAL EXAMINATION: VITAL SIGNS: Temperature of 98.6, T-max of 99.9, pulse of 94, respiratory rate of 18, blood pressure 142/76, and O2 saturation of 100%. HEENT: Pupils equally reactive to light and accommodation. Mouth appears clean with no thrush. NECK: Supple. No adenopathy. No JVD. CARDIOVASCULAR: Regular rate and rhythm. No murmurs. LUNGS: Wheezing noted bilaterally. ABDOMEN: Soft and nontender. G-tube site appears clean. EXTREMITIES: No cyanosis. No clubbing. No edema. LABORATORY DATA: White count of 13.9 on 03/28/2017, white count of 12.7 today, hemoglobin 9, hematocrit 28.2, MCV 86, and platelet count of 159 with neutrophils of 52%. Sodium 146, potassium 3.2, chloride 105, bicarbonate 27, BUN 12, creatinine 0.6, glucose 134, and calcium 8.7. Total bilirubin 0.2, AST 10, ALT 5, alkaline phosphatase 79, total protein 7.4, and albumin 2.6. UA is showing too numerous to count white cells, 83+. Chest x-ray showing possible right infrahilar infiltrate, small left-sided pleural effusion and bibasilar atelectasis noted. Urine cultures are pending. Blood cultures are pending. Urine culture from prior admission on 03/04/2017, urine culture growing Proteus, which is ertapenem susceptible, amikacin susceptible, piperacillin tazobactam susceptible. On 03/08/2017, stool for C. difficile was negative. ASSESSMENT: This is a 72-year-old lady with a history of respiratory failure, status post tracheostomy who comes in with: 1. Urinary tract infection. 2. CVA. 3. Diabetes. 4. Leukocytosis, it is improving. 5. The patient also has pneumonia, possible aspiration pneumonia. PLAN: 1. Discontinue cefepime. 2. We will start the patient on Zosyn. 3. We will order sputum for Gram stain and culture. 4. We will follow up cultures and adjust antibiotics accordingly. I would like to thank Dr. Zhou for this consultation. Halie Aguilar M.D. DR: Enio JOB#: [id number] CC: Leighton Zhou M.D.
--- NOTE | 2017-03-30 01:15 | Consultation ---
DATE OF CONSULTATION: 03/29/2017 REASON FOR ADMISSION: Pulmonary congestion. REASON FOR CONSULTATION: Respiratory failure. HISTORY: The patient is a 72-year-old unfortunate female who is a subacute patient with increasing secretions in the long-term over the past two days. The patient was started on antibiotics and cultures did return. The patient, however, unfortunately did not improve and was transferred for ongoing respiratory congestion. The patient had no reported fever or chills. No significant respiratory distress. The patient is admitted for antibiotics and for ID evaluation. The patient is chronically ventilator dependent and is poorly responsive and bedbound at baseline. PAST MEDICAL HISTORY: Diabetes, CVA, dementia, respiratory failure, tracheostomy, G-tube, chronic encephalopathy, diabetes, and hypertension. The patient also has anemia and stage IV pressure ulcer. MEDICATIONS: Reviewed. ALLERGIES: Reviewed. SOCIAL HISTORY: The patient resides at [facility]. Nonsmoker. Nondrinker. REVIEW OF SYSTEMS: Unobtainable. FAMILY HISTORY: Unobtainable. PHYSICAL EXAMINATION: GENERAL: The patient is a well-developed female, withdrawn, poorly responsive. VITAL SIGNS: Temperature 98.6, pulse 100, respirations 19, blood pressure 138/75, and saturation 100%. HEENT: Negative except both pupils are sluggish. Tracheostomy is midline. Carotids are 2+. LUNGS: Coarse breath sounds. Moderate air entry. CARDIAC: S1 and S2. Regular rate and rhythm. Positive S4. No murmurs or rubs. ABDOMEN: Soft, nontender, and nondistended. G-tube in place. EXTREMITIES: No cyanosis or clubbing. There is no edema. Degenerative joint disease. Contractures noted. NEUROLOGIC: Poorly responsive. Nonverbal. LABORATORY DATA: Reviewed. White cell count 12.7, hemoglobin 9, hematocrit 28.2, and platelets 159,000. Chemistry, sodium 146, potassium 3.2, BUN 12, and creatinine 0.6. Liver enzymes normal. Albumin 2.6. The patient's chest x-ray with possible right infrahilar infiltrate with small left pleural effusion and associated atelectasis. IMPRESSION: 1. Respiratory failure. 2. Evidence of pneumonia, possible parapneumonic effusion, possible sepsis. 3. Evidence of leukocytosis. 4. Evidence of hypernatremia, possibly mildly prerenal. 5. History of tracheostomy, G-tube. 6. History of chronic encephalopathy. 7. History of diabetes. 8. Hypertension. RECOMMENDATION: Antibiotic to continue. ID evaluation followed by suction. Follow sputum culture. Respiratory care. Ventilatory management as outlined reviewed. half-way management feeding. Aspiration precaution. I will continue to follow and recommend further for changes and stabilization. We plan to discharge back to the shelter facility. Jaime Heller M.D. DR: HERNÁN JOB#: [id number] CC:
--- NOTE | 2017-03-30 07:57 | General Progress Note ---
Assessment/Plan Problem List: (1) Fever ICD Codes: R50.9 - Fever, unspecified SNOMED: 042409896 (2) Respiratory failure ICD Codes: J96.90 - Respiratory failure SNOMED: 511203728 (3) Sepsis ICD Codes: A41.9 - Sepsis, unspecified organism SNOMED: 58222811 (4) Pneumonia ICD Codes: J18.9 - Pneumonia, unspecified organism SNOMED: 588743950 Qualifiers: Qualified Codes: J18.1 - Lobar pneumonia, unspecified organism (5) Lactic acid acidosis ICD Codes: E87.2 - Acidosis SNOMED: 81654908 Status: unchanged Status Narrative cont iv abx gt feeds vent resp rx ivf follow up labs sz rx Subjective ROS Limited/Unobtainable: Yes Constitutional: Reports: fever, malaise, weakness HEENT: Reports: no symptoms Cardiovascular: Reports: no symptoms Respiratory: Reports: cough, sputum Gastrointestinal/Abdominal: Reports: difficulty swallowing Genitourinary: Reports: no symptoms Neurologic/Psychiatric: Reports: pre-existing deficit, seizure Endocrine: Reports: no symptoms Hematologic/Lymphatic: Reports: anemia Allergies: Coded Allergies: HEPARIN (Unverified Allergy, Unknown, 03/28/17) HEPARIN (PORCINE) (Verified Allergy, Unknown, 03/31/10) HEPARIN ANALOGUES (Unverified Allergy, Unknown, UNK, 12/18/12) All Systems: reviewed and negative except above Subjective remains intermittently congested. +blood cultures noted. on abx. on feeds and ivf. labs pending. Objective Last 24 Hour Vital Signs Date Time Temp Pulse Resp B/P Pulse Ox O2 Delivery O2 Flow Rate FiO2 03/30/17 07:29 99 18 30 03/30/17 05:16 109 23 30 03/30/17 04:08 98.6 118 19 122/76 100 Mechanical Ventilator 03/30/17 04:00 113 03/30/17 04:00 30 03/30/17 02:55 118 22 30 03/30/17 01:18 98.2 112 16 130/49 100 Mechanical Ventilator 03/30/17 00:57 108 18 30 03/30/17 00:00 98.2 112 16 130/49 100 Mechanical Ventilator 03/30/17 00:00 30 03/29/17 23:58 98.6 03/29/17 23:36 114 03/29/17 22:47 124 25 30 03/29/17 21:00 117 20 30 03/29/17 20:54 99.9 03/29/17 20:00 30 03/29/17 20:00 102.0 118 18 141/67 99 Mechanical Ventilator 30 105 03/29/17 19:14 119 03/29/17 19:00 126 23 30 03/29/17 17:03 103 19 30 03/29/17 16:15 99.6 105 24 110/61 Mechanical Ventilator 30 105 03/29/17 16:11 30 03/29/17 16:00 105 03/29/17 14:30 105 18 30 03/29/17 12:52 96 18 30 03/29/17 12:00 93 03/29/17 12:00 97.8 93 19 115/63 100 Mechanical Ventilator 40 03/29/17 12:00 30 03/29/17 11:02 89 18 30 03/29/17 08:59 94 18 30 03/29/17 08:55 142/76 03/29/17 08:53 100 142/76 03/29/17 08:00 102 03/29/17 08:00 30 Intake and Output 03/29/17 03/30/17 19:00 07:00 Intake Total 580 ml 875 ml Output Total 751 ml 801 ml Balance -171 ml 74 ml Intake Free Water 100 ml 300 ml IV Total 125 ml Tube Feeding 300 ml 450 ml Other 180 ml Output Urine Total 750 ml 800 ml Stool Total 1 ml 1 ml # Bowel Movements 2 1 Laboratory Tests 03/29/17 10:10: Lactic Acid Level 2.90H 03/29/17 13:00: Lactic Acid Level 2.70H Height (Feet): 5 Height (Inches): 3.00 Weight (Pounds): 143 General Appearance: WD/WN, lethargic, confused, cachetic Neck: supple Cardiovascular: tachycardia Respiratory/Chest: rhonchi - bilaterally Abdomen: normal bowel sounds, non tender, soft, no organomegaly Edema: no edema noted Arm (L), no edema noted Arm (R), no edema noted Leg (L), no edema noted Leg (R), no edema noted Pedal (L), no edema noted Pedal (R), no edema noted Generalized Neurologic: disoriented, unresponsive, aphasia ALBER JUDGE March 30, 2017 07:57
--- NOTE | 2017-03-30 08:49 | Infectious Diseases Prog Note ---
Assessment/Plan Assessment/Plan A: Sepsis Pneumonia Bacteremia VDRF DM Dementia P; Continue Zosyn, add IV Vancomycin will f/u cultures Subjective ROS Limited/Unobtainable: Yes Constitutional: Reports: fever, other - Cxhb=724 Allergies: Coded Allergies: HEPARIN (Unverified Allergy, Unknown, 03/28/17) HEPARIN (PORCINE) (Verified Allergy, Unknown, 03/31/10) HEPARIN ANALOGUES (Unverified Allergy, Unknown, UNK, 12/18/12) Objective Vital Signs Last 24 Hour Vital Signs Date Time Temp Pulse Resp B/P Pulse Ox O2 Delivery O2 Flow Rate FiO2 03/30/17 08:06 30 03/30/17 08:00 100.0 102 19 119/65 98 Mechanical Ventilator 30 03/30/17 07:29 99 18 30 03/30/17 05:16 109 23 30 03/30/17 04:08 98.6 118 19 122/76 100 Mechanical Ventilator 03/30/17 04:00 113 03/30/17 04:00 30 03/30/17 02:55 118 22 30 03/30/17 01:18 98.2 112 16 130/49 100 Mechanical Ventilator 03/30/17 00:57 108 18 30 03/30/17 00:00 98.2 112 16 130/49 100 Mechanical Ventilator 03/30/17 00:00 30 03/29/17 23:58 98.6 03/29/17 23:36 114 03/29/17 22:47 124 25 30 03/29/17 21:00 117 20 30 03/29/17 20:54 99.9 03/29/17 20:00 30 03/29/17 20:00 102.0 118 18 141/67 99 Mechanical Ventilator 30 105 03/29/17 19:14 119 03/29/17 19:00 126 23 30 03/29/17 17:03 103 19 30 03/29/17 16:15 99.6 105 24 110/61 Mechanical Ventilator 30 105 03/29/17 16:11 30 03/29/17 16:00 105 03/29/17 14:30 105 18 30 03/29/17 12:52 96 18 30 03/29/17 12:00 93 03/29/17 12:00 97.8 93 19 115/63 100 Mechanical Ventilator 40 03/29/17 12:00 30 03/29/17 11:02 89 18 30 03/29/17 08:59 94 18 30 03/29/17 08:55 142/76 03/29/17 08:53 100 142/76 Height (Feet): 5 Height (Inches): 3.00 Weight (Pounds): 143 HEENT: status post trach Respiratory/Chest: lungs clear, other - on ventilator Cardiovascular: tachycardia Abdomen: soft, non tender, other - GT feeding Extremities: no edema, other - Peripheral line Neurologic/Psychiatric: unresponsiveness Microbiology Date/Time Source Procedure Growth Status 03/28/17 16:25 Blood Blood Culture - Preliminary Gram Positive Cocci Resulted 03/28/17 16:15 Blood Blood Culture - Preliminary NO GROWTH AFTER 24 HOURS Resulted 03/29/17 01:00 Sacral Wound Gram Stain Pending Resulted 03/29/17 01:00 Wound Culture - Preliminary Gram Negative Vaughn Resulted Laboratory Tests Test 03/29/17 10:10 03/29/17 13:00 Lactic Acid Level 2.90 mmol/L (0.66-2.22) H 2.70 mmol/L (0.66-2.22) H Current Medications Medications (Trade) Dose Ordered Sig/Robert Route PRN Reason Start Time Stop Time Status Last Admin Dose Admin Acetaminophen (Tylenol) 650 mg Q4H PRN GT Headache/Temp > 101 03/28/17 19:30 04/27/17 19:29 03/29/17 20:24 Acetaminophen/ Hydrocodone Bitart ([place] 5/325) 1 tab QIDPRN PRN GT Moderate Pain (Pain Scale 4-6) 03/28/17 19:30 04/04/17 19:29 03/29/17 22:59 Albuterol/ Ipratropium 3 ml 3 ml Q4H PRN HHN Shortness of Breath 03/28/17 19:30 04/02/17 19:29 Aspirin (Ecotrin) 81 mg DAILY ORAL 03/29/17 09:00 04/28/17 08:59 03/29/17 08:56 Benazepril HCl (Lotensin) 10 mg DAILY GT 03/29/17 09:00 04/28/17 08:59 03/29/17 08:55 Bisacodyl (Dulcolax) 10 mg DAILY PRN RECTAL Constipation 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 03/28/17 19:30 04/27/17 19:29 Docusate Sodium (Colace) 250 mg TWICE A DAY ORAL 03/29/17 09:00 04/28/17 08:59 03/29/17 17:38 Epoetin Ilia (Procrit (for non ESRD use)) 7,000 units FRI-FRI-FRI SUBQ 03/31/17 21:00 04/30/17 20:59 Lansoprazole (Prevacid) 30 mg DAILY GT 03/29/17 09:00 04/28/17 08:59 03/29/17 09:03 Magnesium Hydroxide (Mom) 30 ml DAILY PRN GT Constipation FIRST LINE AGENT 03/28/17 19:30 04/27/17 19:29 Metformin HCl (Glucophage) 500 mg BID GT 03/29/17 09:00 04/28/17 08:59 03/29/17 17:38 Metoprolol Tartrate (Lopressor) 12.5 mg DAILY GT 03/29/17 09:00 04/28/17 08:59 03/29/17 08:53 Multivitamins Therapeutic (Therapeutic Multivitamin) 1 ea DAILY ORAL 03/29/17 09:00 04/28/17 08:59 03/29/17 08:54 Ondansetron HCl (Zofran) 4 mg Q6H PRN GT Nausea & Vomiting 03/28/17 19:30 04/27/17 19:29 Piperacillin Sod/ Tazobactam Sod/ Dextrose (Zosyn/D5W) 100 ml @ 25 mls/hr EVERY 8 HOURS IV 03/29/17 14:00 04/03/17 13:59 03/30/17 05:30 Sodium Phosphate (Fleet's Sodium Phosl Enema) 133 ml DAILYPRN PRN RECTAL CONSTIPATION THIRD LINE AGENT 03/28/17 19:30 04/27/17 19:29 Valproic Acid (Depakene) 750 mg EVERY 12 HOURS NG 03/28/17 21:00 04/27/17 20:59 03/29/17 20:19 Vancomycin HCl (Vanco rx to dose) 1 ea DAILY PRN MISC Per rx protocol 03/30/17 08:45 04/29/17 08:44 UNV Zinc Sulfate (Zinc Sulfate) 220 mg DAILY GT 03/29/17 09:00 04/28/17 08:59 03/29/17 08:54 RADHA BURNETT March 30, 2017 08:48
--- NOTE | 2017-03-30 08:53 | Pulmonology Progress Note ---
Assessment/Plan Assessment/Plan IMPRESSION: 1. Respiratory failure. 2. Evidence of pneumonia, possible parapneumonic effusion, possible sepsis. 3. Evidence of leukocytosis. 4. Evidence of hypernatremia, possibly mildly prerenal. 5. History of tracheostomy, G-tube. 6. History of chronic encephalopathy. 7. History of diabetes. 8. Hypertension. 9. sinus tachycardia 10. fevers PLAN ID noted antibiotics respiratory care ventilator as is oxygen therapy snf meds monitor for change stabilize follow up imaging impression, plan, and exam edited and reviewed in detail care discussed with RN Subjective ROS Limited/Unobtainable: Yes Allergies: Coded Allergies: HEPARIN (Unverified Allergy, Unknown, 03/28/17) HEPARIN (PORCINE) (Verified Allergy, Unknown, 03/31/10) HEPARIN ANALOGUES (Unverified Allergy, Unknown, UNK, 12/18/12) Subjective withdrawn poor LOC care noted Objective Last 24 Hour Vital Signs Date Time Temp Pulse Resp B/P Pulse Ox O2 Delivery O2 Flow Rate FiO2 03/30/17 08:06 30 03/30/17 08:00 100.0 102 19 119/65 98 Mechanical Ventilator 30 03/30/17 07:29 99 18 30 03/30/17 05:16 109 23 30 03/30/17 04:08 98.6 118 19 122/76 100 Mechanical Ventilator 03/30/17 04:00 113 03/30/17 04:00 30 03/30/17 02:55 118 22 30 03/30/17 01:18 98.2 112 16 130/49 100 Mechanical Ventilator 03/30/17 00:57 108 18 30 03/30/17 00:00 98.2 112 16 130/49 100 Mechanical Ventilator 03/30/17 00:00 30 03/29/17 23:58 98.6 03/29/17 23:36 114 03/29/17 22:47 124 25 30 03/29/17 21:00 117 20 30 03/29/17 20:54 99.9 03/29/17 20:00 30 03/29/17 20:00 102.0 118 18 141/67 99 Mechanical Ventilator 30 105 03/29/17 19:14 119 03/29/17 19:00 126 23 30 03/29/17 17:03 103 19 30 03/29/17 16:15 99.6 105 24 110/61 Mechanical Ventilator 30 105 03/29/17 16:11 30 03/29/17 16:00 105 03/29/17 14:30 105 18 30 03/29/17 12:52 96 18 30 03/29/17 12:00 93 03/29/17 12:00 97.8 93 19 115/63 100 Mechanical Ventilator 40 03/29/17 12:00 30 03/29/17 11:02 89 18 30 03/29/17 08:59 94 18 30 03/29/17 08:55 142/76 03/29/17 08:53 100 142/76 Intake and Output 03/29/17 03/30/17 19:00 07:00 Intake Total 580 ml 875 ml Output Total 751 ml 801 ml Balance -171 ml 74 ml Intake Free Water 100 ml 300 ml IV Total 125 ml Tube Feeding 300 ml 450 ml Other 180 ml Output Urine Total 750 ml 800 ml Stool Total 1 ml 1 ml # Bowel Movements 2 1 Objective GENERAL: The patient is a well-developed female, withdrawn, poorly responsive. HEENT: Negative except both pupils are sluggish. Tracheostomy is midline. Carotids are 2+. LUNGS: Coarse breath sounds. Moderate air entry. no wheeze or rhonchi CARDIAC: S1 and S2. Regular rate and rhythm. Positive S4. No murmurs or rubs. ABDOMEN: Soft, nontender, and nondistended. G-tube in place.no HSM EXTREMITIES: No cyanosis or clubbing. There is no edema. Degenerative joint disease. Contractures noted. NEUROLOGIC: Poorly responsive. Nonverbal. Microbiology Date/Time Source Procedure Growth Status 03/28/17 16:25 Blood Blood Culture - Preliminary Gram Positive Cocci Resulted 03/28/17 16:15 Blood Blood Culture - Preliminary NO GROWTH AFTER 24 HOURS Resulted 03/29/17 01:00 Sacral Wound Gram Stain Pending Resulted 03/29/17 01:00 Wound Culture - Preliminary Gram Negative Vaughn Resulted Laboratory Tests 03/29/17 10:10: Lactic Acid Level 2.90H 03/29/17 13:00: Lactic Acid Level 2.70H Current Medications Medications (Trade) Dose Ordered Sig/Robert Route PRN Reason Start Time Stop Time Status Last Admin Dose Admin Acetaminophen (Tylenol) 650 mg Q4H PRN GT Headache/Temp > 101 03/28/17 19:30 04/27/17 19:29 03/29/17 20:24 Acetaminophen/ Hydrocodone Bitart ([place] 5/325) 1 tab QIDPRN PRN GT Moderate Pain (Pain Scale 4-6) 03/28/17 19:30 04/04/17 19:29 03/29/17 22:59 Albuterol/ Ipratropium 3 ml 3 ml Q4H PRN HHN Shortness of Breath 03/28/17 19:30 04/02/17 19:29 Aspirin (Ecotrin) 81 mg DAILY ORAL 03/29/17 09:00 04/28/17 08:59 03/29/17 08:56 Benazepril HCl (Lotensin) 10 mg DAILY GT 03/29/17 09:00 04/28/17 08:59 03/29/17 08:55 Bisacodyl (Dulcolax) 10 mg DAILY PRN RECTAL Constipation 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 03/28/17 19:30 04/27/17 19:29 Docusate Sodium (Colace) 250 mg TWICE A DAY ORAL 03/29/17 09:00 04/28/17 08:59 03/29/17 17:38 Epoetin Ilia (Procrit (for non ESRD use)) 7,000 units FRI-FRI-FRI SUBQ 03/31/17 21:00 04/30/17 20:59 Lansoprazole (Prevacid) 30 mg DAILY GT 03/29/17 09:00 04/28/17 08:59 03/29/17 09:03 Magnesium Hydroxide (Mom) 30 ml DAILY PRN GT Constipation FIRST LINE AGENT 03/28/17 19:30 04/27/17 19:29 Metformin HCl (Glucophage) 500 mg BID GT 03/29/17 09:00 04/28/17 08:59 03/29/17 17:38 Metoprolol Tartrate (Lopressor) 12.5 mg DAILY GT 03/29/17 09:00 04/28/17 08:59 03/29/17 08:53 Multivitamins Therapeutic (Therapeutic Multivitamin) 1 ea DAILY ORAL 03/29/17 09:00 04/28/17 08:59 03/29/17 08:54 Ondansetron HCl (Zofran) 4 mg Q6H PRN GT Nausea & Vomiting 03/28/17 19:30 04/27/17 19:29 Piperacillin Sod/ Tazobactam Sod/ Dextrose (Zosyn/D5W) 100 ml @ 25 mls/hr EVERY 8 HOURS IV 03/29/17 14:00 04/03/17 13:59 03/30/17 05:30 Sodium Phosphate (Fleet's Sodium Phosl Enema) 133 ml DAILYPRN PRN RECTAL CONSTIPATION THIRD LINE AGENT 03/28/17 19:30 04/27/17 19:29 Valproic Acid (Depakene) 750 mg EVERY 12 HOURS NG 03/28/17 21:00 04/27/17 20:59 03/29/17 20:19 Vancomycin HCl (Vanco rx to dose) 1 ea DAILY PRN MISC Per rx protocol 03/30/17 08:45 04/29/17 08:44 UNV Zinc Sulfate (Zinc Sulfate) 220 mg DAILY GT 03/29/17 09:00 04/28/17 08:59 03/29/17 08:54 HAFSA PRESTON March 30, 2017 08:53
[2017-03-30] MEDS: Multivitamin w/Minerals tab ORAL SCH (08:59)
[2017-03-30] MEDS: Aspirin EC 81mg tab ORAL SCH (08:59)
[2017-03-30] MEDS: Benazepril 10mg tab GT SCH (08:59)
[2017-03-30] MEDS: Metoprolol 25mg tab GT SCH (08:59)
[2017-03-30] MEDS: metFORMIN 500mg tab GT SCH ×2 (09:00→18:02)
[2017-03-30] MEDS: Valproic Acid 250mg/5ml Liquid NG SCH ×2 (09:00→20:32)
[2017-03-30] MEDS: Docusate 250mg cap ORAL SCH ×2 (09:00→18:02)
[2017-03-30] MEDS: Zinc Sulfate 220mg cap GT SCH (09:01)
[2017-03-30 09:30] LABS: BASOPHILS % (AUTO) 1.3 % (0.0-2.0); EOSINOPHILS % (AUTO) 1.8 % (0.0-3.0); LYMPHOCYTES % (AUTO) 16.7 % (20.0-45.0); MEAN CORPUSCULAR HEMOGLOBIN 27.5 PG (27.0-31.0); MEAN CORPUSCULAR HGB CONC 31.5 G/DL (32.0-36.0); MEAN CORPUSCULAR VOLUME 87 FL (80-99); MONOCYTES % (AUTO) 10.7 % (1.0-10.0); NEUTROPHILS % (AUTO) 69.5 % (45.0-75.0); PLATELET COUNT 173 K/UL (150-450); RED BLOOD COUNT 3.47 M/UL (4.20-5.40); RED CELL DISTRIBUTION WIDTH 15.3 % (11.6-14.8); WHITE BLOOD COUNT 13.5 K/UL (4.8-10.8)
[2017-03-30 09:41] LABS: ALANINE AMINOTRANSFERASE 5 U/L (3-33); ALBUMIN/GLOBULIN RATIO 0.5 (1.0-2.7); ANION GAP 14 (5-15); ASPARTATE AMINO TRANSFERASE 10 U/L (5-40); CARBON DIOXIDE 27 mEQ/L (20-30); CHLORIDE 106 mEQ/L (98-107); CREATININE 0.6 mg/dL (0.5-0.9); GLOMERULAR FILTRATION RATE > 60 mL/min (>60); HEMOLYSIS 0; POTASSIUM 3.8 mEQ/L (3.4-4.9); SODIUM 147 mEQ/L (135-145); TOTAL PROTEIN 7.8 g/dL (6.6-8.7)
[2017-03-30] MEDS ORDERED: Vancomycin 1gm/D5W 275ml IVPB ONE ×2 (10:00)
[2017-03-30] MEDS ORDERED: Tubing IV Secondary IV ONE (16:31)
[2017-03-30] MEDS ORDERED: NS 275ml ONE (16:31)
[2017-03-30] MEDS: Acetaminophen 650mg/20.3ml GT PRN (20:32)
[2017-03-30] MEDS: Vancomycin 750mg/D5W 275ml IVPB SCH ×2 (21:00)
[2017-03-31] VITALS: BP 146/87
[2017-03-31 04:30] VITALS: BP 150/87
[2017-03-31] MEDS: Acetaminophen 650mg/20.3ml GT PRN (04:41)
[2017-03-31 08:00] VITALS: BP 147/69
[2017-03-31] MEDS: Multivitamin w/Minerals tab ORAL SCH (08:44)
[2017-03-31] MEDS: Docusate 250mg cap ORAL SCH ×2 (08:44→17:32)
[2017-03-31] MEDS: Aspirin EC 81mg tab ORAL SCH (08:44)
[2017-03-31] MEDS: metFORMIN 500mg tab GT SCH ×2 (08:44→17:32)
[2017-03-31] MEDS: Zinc Sulfate 220mg cap GT SCH (08:45)
[2017-03-31] MEDS: Valproic Acid 250mg/5ml Liquid NG SCH ×2 (08:45→20:40)
[2017-03-31] MEDS: Benazepril 10mg tab GT SCH (08:52)
[2017-03-31] MEDS: Metoprolol 25mg tab GT SCH (08:52)
--- NOTE | 2017-03-31 09:18 | Pulmonology Progress Note ---
Assessment/Plan Assessment/Plan IMPRESSION: 1. Respiratory failure. 2. Evidence of pneumonia, possible parapneumonic effusion, possible sepsis. 3. Evidence of leukocytosis. 4. Evidence of hypernatremia, possibly mildly prerenal. 5. History of tracheostomy, G-tube. 6. History of chronic encephalopathy. 7. History of diabetes. 8. Hypertension. 9. sinus tachycardia 10. fevers PLAN exam without significant change ID noted antibiotics respiratory care ventilator as is; no wean oxygen therapy snf meds monitor for change stabilize follow up imaging and proceed with dc planning soon impression, plan, and exam edited and reviewed in detail care discussed with RN Subjective ROS Limited/Unobtainable: Yes Allergies: Coded Allergies: HEPARIN (Unverified Allergy, Unknown, 03/28/17) HEPARIN (PORCINE) (Verified Allergy, Unknown, 03/31/10) HEPARIN ANALOGUES (Unverified Allergy, Unknown, UNK, 12/18/12) Subjective withdrawn poor LOC care noted Objective Last 24 Hour Vital Signs Date Time Temp Pulse Resp B/P Pulse Ox O2 Delivery O2 Flow Rate FiO2 03/31/17 09:11 101 18 30 03/31/17 08:52 96 147/69 03/31/17 08:52 147/69 03/31/17 08:10 30 03/31/17 08:00 125 03/31/17 06:55 91 18 30 03/31/17 05:30 99.8 03/31/17 05:17 106 18 30 03/31/17 05:11 99.8 03/31/17 04:30 101.5 112 18 150/87 100 Mechanical Ventilator 03/31/17 04:00 30 03/31/17 04:00 110 03/31/17 03:05 107 18 30 03/31/17 00:55 106 25 30 03/31/17 00:00 97.9 102 18 146/87 100 Mechanical Ventilator 30 03/31/17 00:00 30 03/30/17 23:41 108 03/30/17 21:37 111 18 30 03/30/17 20:00 30 03/30/17 20:00 101.1 107 18 161/94 99 Mechanical Ventilator 30 03/30/17 19:34 106 03/30/17 19:20 107 18 30 03/30/17 17:17 118 18 30 03/30/17 16:00 30 03/30/17 16:00 93 03/30/17 16:00 99.7 96 18 136/73 98 Mechanical Ventilator 30 03/30/17 15:07 93 17 30 03/30/17 13:01 90 18 30 03/30/17 12:09 30 03/30/17 12:00 90 03/30/17 12:00 99.5 93 18 133/76 100 Mechanical Ventilator 30 03/30/17 10:53 96 18 30 03/30/17 09:25 100 18 30 Intake and Output 03/30/17 03/31/17 19:00 07:00 Intake Total 825 ml 1300.000 ml Output Total 551 ml 650 ml Balance 274 ml 650.000 ml Intake Free Water 200 ml 300 ml IV Total 25 ml 400.000 ml Tube Feeding 360 ml 540 ml Other 240 ml 60 ml Output Urine Total 550 ml 650 ml Stool Total 1 ml # Bowel Movements 1 Objective GENERAL: The patient is a well-developed female, withdrawn, poorly responsive. HEENT: Negative except both pupils are sluggish. Tracheostomy is midline. Carotids are 2+. LUNGS: Coarse breath sounds. Moderate air entry. no wheeze or rhonchi CARDIAC: S1 and S2. Regular rate and rhythm. Positive S4. No murmurs or rubs. ABDOMEN: Soft, nontender, and nondistended. G-tube in place.no HSM EXTREMITIES: No cyanosis or clubbing. There is no edema. Degenerative joint disease. Contractures noted. NEUROLOGIC: Poorly responsive. Nonverbal. Microbiology Date/Time Source Procedure Growth Status 03/28/17 16:25 Blood Blood Culture - Preliminary Gram Positive Cocci Resulted 03/28/17 16:15 Blood Blood Culture - Preliminary NO GROWTH AFTER 48 HOURS Resulted 03/29/17 01:00 Nasal Nares Right MRSA Culture - Final NO METHICILLIN RESISTANT STAPH AUREUS... Complete 03/28/17 22:00 Sputum Induced Gram Stain - Final Resulted 03/28/17 22:00 Sputum Culture - Preliminary Gram Negative Vaughn Gram Negative Bacillus 2 Gram Negative Bacillus 3 Resulted 03/28/17 16:17 Urine,Clean Catch Urine Culture - Final Shirin Tropicalis Complete 03/29/17 01:00 Sacral Wound Gram Stain Pending Resulted 03/29/17 01:00 Wound Culture - Preliminary Gram Negative Vaughn Resulted Current Medications Medications (Trade) Dose Ordered Sig/Robert Route PRN Reason Start Time Stop Time Status Last Admin Dose Admin Acetaminophen (Tylenol) 650 mg Q4H PRN GT Headache/Temp > 101 03/28/17 19:30 04/27/17 19:29 03/31/17 04:41 Acetaminophen/ Hydrocodone Bitart ([place] 5/325) 1 tab QIDPRN PRN GT Moderate Pain (Pain Scale 4-6) 03/28/17 19:30 04/04/17 19:29 03/29/17 22:59 Albuterol/ Ipratropium 3 ml 3 ml Q4H PRN HHN Shortness of Breath 03/28/17 19:30 04/02/17 19:29 Aspirin (Ecotrin) 81 mg DAILY ORAL 03/29/17 09:00 04/28/17 08:59 03/31/17 08:44 Benazepril HCl (Lotensin) 10 mg DAILY GT 03/29/17 09:00 04/28/17 08:59 03/31/17 08:52 Bisacodyl (Dulcolax) 10 mg DAILY PRN RECTAL Constipation 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 03/28/17 19:30 04/27/17 19:29 Docusate Sodium (Colace) 250 mg TWICE A DAY ORAL 03/29/17 09:00 04/28/17 08:59 03/31/17 08:44 Epoetin Ilia (Procrit (for non ESRD use)) 7,000 units FRI-FRI-FRI SUBQ 03/31/17 21:00 04/30/17 20:59 Lansoprazole (Prevacid) 30 mg DAILY GT 03/29/17 09:00 04/28/17 08:59 03/31/17 08:44 Magnesium Hydroxide (Mom) 30 ml DAILY PRN GT Constipation FIRST LINE AGENT 03/28/17 19:30 04/27/17 19:29 Metformin HCl (Glucophage) 500 mg BID GT 03/29/17 09:00 04/28/17 08:59 03/31/17 08:44 Metoprolol Tartrate (Lopressor) 12.5 mg DAILY GT 03/29/17 09:00 04/28/17 08:59 03/31/17 08:52 Multivitamins Therapeutic (Therapeutic Multivitamin) 1 ea DAILY ORAL 03/29/17 09:00 04/28/17 08:59 03/31/17 08:44 Ondansetron HCl (Zofran) 4 mg Q6H PRN GT Nausea & Vomiting 03/28/17 19:30 04/27/17 19:29 Piperacillin Sod/ Tazobactam Sod/ Dextrose (Zosyn/D5W) 100 ml @ 25 mls/hr EVERY 8 HOURS IV 03/29/17 14:00 04/03/17 13:59 03/31/17 06:00 Sodium Phosphate (Fleet's Sodium Phosl Enema) 133 ml DAILYPRN PRN RECTAL CONSTIPATION THIRD LINE AGENT 03/28/17 19:30 04/27/17 19:29 Valproic Acid (Depakene) 750 mg EVERY 12 HOURS NG 03/28/17 21:00 04/27/17 20:59 03/31/17 08:45 Vancomycin HCl 1 ea 1 ea DAILY PRN MISC Per rx protocol 03/30/17 08:45 04/29/17 08:44 Vancomycin HCl/ Dextrose (Vancomycin/D5W) 275 ml @ 183.708 mls/hr Q12H IVPB 03/30/17 22:00 04/04/17 21:59 03/30/17 21:00 Zinc Sulfate (Zinc Sulfate) 220 mg DAILY GT 03/29/17 09:00 04/28/17 08:59 03/31/17 08:45 HAFSA PRESTON March 31, 2017 09:18
[2017-03-31] MEDS: Vancomycin 750mg/D5W 275ml IVPB SCH ×4 (09:52→21:33)
--- NOTE | 2017-03-31 09:54 | General Progress Note ---
Assessment/Plan Problem List: (1) Fever ICD Codes: R50.9 - Fever, unspecified SNOMED: 664148172 (2) Respiratory failure ICD Codes: J96.90 - Respiratory failure SNOMED: 396772896 (3) Sepsis ICD Codes: A41.9 - Sepsis, unspecified organism SNOMED: 11301831 (4) Pneumonia ICD Codes: J18.9 - Pneumonia, unspecified organism SNOMED: 506209107 Qualifiers: Qualified Codes: J18.1 - Lobar pneumonia, unspecified organism (5) Lactic acid acidosis ICD Codes: E87.2 - Acidosis SNOMED: 13666728 Status: stable, progressing Assessment/Plan follow up cultures abx per ID repeat lactic acid level vent/resp rx gt feeds skin care sz rx monitor bs poor prognosis Subjective ROS Limited/Unobtainable: Yes Constitutional: Reports: malaise, weakness HEENT: Reports: no symptoms Cardiovascular: Reports: no symptoms Respiratory: Reports: cough, shortness of breath, sputum Gastrointestinal/Abdominal: Reports: difficulty swallowing Genitourinary: Reports: no symptoms Neurologic/Psychiatric: Reports: pre-existing deficit, seizure Endocrine: Reports: no symptoms Hematologic/Lymphatic: Reports: anemia Allergies: Coded Allergies: HEPARIN (Unverified Allergy, Unknown, 03/28/17) HEPARIN (PORCINE) (Verified Allergy, Unknown, 03/31/10) HEPARIN ANALOGUES (Unverified Allergy, Unknown, UNK, 12/18/12) All Systems: reviewed and negative except above Subjective remains intermittently congested. +blood cultures noted. on abx. on feeds and ivf. labs reviewed. Objective Last 24 Hour Vital Signs Date Time Temp Pulse Resp B/P Pulse Ox O2 Delivery O2 Flow Rate FiO2 03/31/17 09:11 101 18 30 03/31/17 08:52 96 147/69 03/31/17 08:52 147/69 03/31/17 08:10 30 03/31/17 08:00 125 03/31/17 06:55 91 18 30 03/31/17 05:30 99.8 03/31/17 05:17 106 18 30 03/31/17 05:11 99.8 03/31/17 04:30 101.5 112 18 150/87 100 Mechanical Ventilator 30 03/31/17 04:00 30 03/31/17 04:00 110 03/31/17 03:05 107 18 30 03/31/17 00:55 106 25 30 03/31/17 00:00 97.9 102 18 146/87 100 Mechanical Ventilator 30 03/31/17 00:00 30 03/30/17 23:41 108 03/30/17 21:37 111 18 30 03/30/17 20:00 30 03/30/17 20:00 101.1 107 18 161/94 99 Mechanical Ventilator 30 03/30/17 19:34 106 03/30/17 19:20 107 18 30 03/30/17 17:17 118 18 30 03/30/17 16:00 30 03/30/17 16:00 93 03/30/17 16:00 99.7 96 18 136/73 98 Mechanical Ventilator 30 03/30/17 15:07 93 17 30 03/30/17 13:01 90 18 30 03/30/17 12:09 30 03/30/17 12:00 90 03/30/17 12:00 99.5 93 18 133/76 100 Mechanical Ventilator 30 03/30/17 10:53 96 18 30 Intake and Output 03/30/17 03/31/17 19:00 07:00 Intake Total 825 ml 1300.000 ml Output Total 551 ml 650 ml Balance 274 ml 650.000 ml Intake Free Water 200 ml 300 ml IV Total 25 ml 400.000 ml Tube Feeding 360 ml 540 ml Other 240 ml 60 ml Output Urine Total 550 ml 650 ml Stool Total 1 ml # Bowel Movements 1 Height (Feet): 5 Height (Inches): 3.00 Weight (Pounds): 143 Objective General Appearance: WD/WN, lethargic, confused, cachetic Neck: supple Cardiovascular: tachycardia Respiratory/Chest: rhonchi - bilaterally Abdomen: normal bowel sounds, non tender, soft, no organomegaly Edema: no edema noted Arm (L), no edema noted Arm (R), no edema noted Leg (L), no edema noted Leg (R), no edema noted Pedal (L), no edema noted Pedal (R), no edema noted Generalized Neurologic: disoriented, unresponsive, aphasia ALBER JUDGE March 31, 2017 09:54
--- NOTE | 2017-03-31 11:23 | Infectious Diseases Prog Note ---
Assessment/Plan Assessment/Plan antibiotics : vancomycin iv, zosyn A 1. gram positive sepsis 2. gram negative pneumonia 3. fungal UTI 4. respiratory failure 5. leucocytosis P 1. continue vancomycin iv, zosyn 2. start fluconazole 3. will follow up cultures Subjective ROS Limited/Unobtainable: Yes Allergies: Coded Allergies: HEPARIN (Unverified Allergy, Unknown, 03/28/17) HEPARIN (PORCINE) (Verified Allergy, Unknown, 03/31/10) HEPARIN ANALOGUES (Unverified Allergy, Unknown, UNK, 12/18/12) Objective Vital Signs Last 24 Hour Vital Signs Date Time Temp Pulse Resp B/P Pulse Ox O2 Delivery O2 Flow Rate FiO2 03/31/17 10:56 104 20 30 03/31/17 09:11 101 18 30 03/31/17 08:52 96 147/69 03/31/17 08:52 147/69 03/31/17 08:10 30 03/31/17 08:00 97.7 96 18 147/69 100 Mechanical Ventilator 30 03/31/17 08:00 125 03/31/17 06:55 91 18 30 03/31/17 05:30 99.8 03/31/17 05:17 106 18 30 03/31/17 05:11 99.8 03/31/17 04:30 101.5 112 18 150/87 100 Mechanical Ventilator 30 03/31/17 04:00 30 03/31/17 04:00 110 03/31/17 03:05 107 18 30 03/31/17 00:55 106 25 30 03/31/17 00:00 97.9 102 18 146/87 100 Mechanical Ventilator 30 03/31/17 00:00 30 03/30/17 23:41 108 03/30/17 21:37 111 18 30 03/30/17 20:00 30 03/30/17 20:00 101.1 107 18 161/94 99 Mechanical Ventilator 30 03/30/17 19:34 106 03/30/17 19:20 107 18 30 03/30/17 17:17 118 18 30 03/30/17 16:00 30 03/30/17 16:00 93 03/30/17 16:00 99.7 96 18 136/73 98 Mechanical Ventilator 30 03/30/17 15:07 93 17 30 03/30/17 13:01 90 18 30 03/30/17 12:09 30 03/30/17 12:00 90 03/30/17 12:00 99.5 93 18 133/76 100 Mechanical Ventilator 30 Height (Feet): 5 Height (Inches): 3.00 Weight (Pounds): 143 HEENT: status post trach Respiratory/Chest: lungs clear Cardiovascular: normal rate, regular rhythm, no gallop/murmur Abdomen: soft, non tender, other - GT Extremities: no edema Microbiology Date/Time Source Procedure Growth Status 03/28/17 16:25 Blood Blood Culture - Preliminary Gram Positive Cocci Resulted 03/28/17 16:15 Blood Blood Culture - Preliminary NO GROWTH AFTER 48 HOURS Resulted 03/29/17 01:00 Nasal Nares Right MRSA Culture - Final NO METHICILLIN RESISTANT STAPH AUREUS... Complete 03/28/17 22:00 Sputum Induced Gram Stain - Final Resulted 03/28/17 22:00 Sputum Culture - Preliminary Gram Negative Vaughn Gram Negative Bacillus 2 Gram Negative Bacillus 3 Resulted 03/28/17 16:17 Urine,Clean Catch Urine Culture - Final Shirin Tropicalis Complete 03/29/17 01:00 Sacral Wound Gram Stain Pending Resulted 03/29/17 01:00 Wound Culture - Preliminary A.baumanii Complx - Mdr Gram Negative Bacillus 2 Gram Negative Bacillus 3 Staphylococcus Aureus Strep Species, Gamma-Hemolytic Resulted LAI WATSON March 31, 2017 11:23
[2017-03-31 12:00] VITALS: BP 137/86
[2017-03-31] MEDS: Fluconazole 100mg tab ORAL SCH (13:17)
[2017-03-31 16:00] VITALS: BP 136/67
--- NOTE | 2017-03-31 17:12 | Wound Care Consultation ---
Wound Assessment Wound Assessment #1: Wound Present on Admission: Yes New Wound: No Status Change of Wound: No Wound Location Body Site Modif: mid Wound Location Body Site: sacral Wound Type: pressure ulcer Stoney Test: Does not Stoney Pressure Ulcer Stage: IV/unstageable Wound Thickness: Full Thickness Wound Length: 11.5 Wound Width: 6.5 Wound Depth: 2.5 Percent of Wound [place]/Red: 100 Wound Drainage Description: Serosanguineous Wound Drainage Amount: Moderate Wound Drainage Odor: None/Absent Tissue Surrounding Wound: Macerated Wound General Appearance: Reddened, Draining Wound Assessment #2: Wound Number: #2 Wound Present on Admission: Yes New Wound: No Status Change of Wound: No Wound Location Body Site Modif: right, anterior Wound Location Body Site: toe - 2nd Wound Type: scab Stoney Test: Does not Stoney Wound Thickness: Full Thickness Wound Length: 0.5 Wound Width: 0.5 Wound Depth: utd Percent of Wound Black/Brown: 100 Wound Drainage Amount: None Wound Drainage Odor: None/Absent Tissue Surrounding Wound: Intact Wound General Appearance: Asymptomatic Wound Comment #1 Sacral stage IV pressure ulcer #2 Right anterior 2nd toe with dry scab etiology unknown Recommendation -Sacral pressure ulcer Cleanse with saline pat dry apply hydrogel to wound bed, apply calcium alginate ,cover with 4x4 secure with Bordered gauze daily and PRN soiled/dislodged -Low air loss mattress -Optimize nutrition -Keep clean and dry -Turn and reposition -Offload both heels -Heel protector on both heels -Assess and f/u accordingly for any changes CHANDRIKA GONZALES RN March 31, 2017 17:12
[2017-03-31 20:00] VITALS: BP 122/72
[2017-03-31] MEDS: Epogen (for non ESRD use) SUBQ SCH (21:09)
[2017-04-01] VITALS: BP 129/61
[2017-04-01 04:00] VITALS: BP 125/68
[2017-04-01 05:44] LABS: BASOPHILS % (AUTO) 2.2 % (0.0-2.0); EOSINOPHILS % (AUTO) 2.4 % (0.0-3.0); LYMPHOCYTES % (AUTO) 20.1 % (20.0-45.0); MEAN CORPUSCULAR HEMOGLOBIN 27.4 PG (27.0-31.0); MEAN CORPUSCULAR HGB CONC 32.1 G/DL (32.0-36.0); MEAN CORPUSCULAR VOLUME 85 FL (80-99); MONOCYTES % (AUTO) 13.6 % (1.0-10.0); NEUTROPHILS % (AUTO) 61.7 % (45.0-75.0); PLATELET COUNT 191 K/UL (150-450); RED BLOOD COUNT 3.24 M/UL (4.20-5.40); RED CELL DISTRIBUTION WIDTH 15.1 % (11.6-14.8)
[2017-04-01 06:10] LABS: ALANINE AMINOTRANSFERASE 5 U/L (3-33); ALBUMIN/GLOBULIN RATIO 0.4 (1.0-2.7); ANION GAP 13 (5-15); ASPARTATE AMINO TRANSFERASE 9 U/L (5-40); CALCIUM 8.6 mg/dL (8.6-10.2); CARBON DIOXIDE 28 mEQ/L (20-30); CHLORIDE 105 mEQ/L (98-107); CREATININE 0.7 mg/dL (0.5-0.9); GLOMERULAR FILTRATION RATE > 60 mL/min (>60); HEMOLYSIS 0; POTASSIUM 3.3 mEQ/L (3.4-4.9); SODIUM 146 mEQ/L (135-145); TOTAL PROTEIN 7.4 g/dL (6.6-8.7)
[2017-04-01 06:23] LABS: REFLEX LACTIC ACID YES OR NO YES
--- NOTE | 2017-04-01 07:57 | Pulmonology Progress Note ---
Assessment/Plan Assessment/Plan IMPRESSION: 1. Respiratory failure. 2. Evidence of pneumonia, possible parapneumonic effusion, possible sepsis. 3. Evidence of leukocytosis. 4. Evidence of hypernatremia, possibly mildly prerenal. 5. History of tracheostomy, G-tube. 6. History of chronic encephalopathy. 7. History of diabetes. 8. Hypertension. 9. sinus tachycardia 10. fevers PLAN exam same ID noted antibiotics respiratory care ventilator as is; no wean oxygen therapy snf meds monitor for change control pulse rate monitor sodium levels and WBC stabilize follow up imaging and proceed with dc planning soon once cleared by ID close monitoring after dc impression, plan, and exam edited and reviewed in detail care discussed with RN Subjective ROS Limited/Unobtainable: Yes Allergies: Coded Allergies: HEPARIN (Unverified Allergy, Unknown, 03/28/17) HEPARIN (PORCINE) (Verified Allergy, Unknown, 03/31/10) HEPARIN ANALOGUES (Unverified Allergy, Unknown, UNK, 12/18/12) Subjective withdrawn poor LOC care noted and reviewed Objective Last 24 Hour Vital Signs Date Time Temp Pulse Resp B/P Pulse Ox O2 Delivery O2 Flow Rate FiO2 04/01/17 07:30 100 18 30 04/01/17 05:21 106 18 30 04/01/17 04:01 101 20 30 04/01/17 04:00 98.7 115 18 125/68 100 04/01/17 04:00 115 04/01/17 04:00 30 04/01/17 01:27 113 18 30 04/01/17 00:00 99.5 110 18 129/61 100 Mechanical Ventilator 04/01/17 00:00 112 04/01/17 00:00 30 03/31/17 23:31 116 20 30 03/31/17 21:49 95 24 30 03/31/17 20:00 104 03/31/17 20:00 30 03/31/17 20:00 98.1 98 18 122/72 100 Mechanical Ventilator 03/31/17 19:46 103 18 30 03/31/17 16:30 99 18 30 03/31/17 16:00 99.7 98 19 136/67 100 Mechanical Ventilator 30 03/31/17 16:00 96 03/31/17 16:00 30 03/31/17 14:59 100 19 30 03/31/17 13:13 95 18 30 03/31/17 12:15 30 03/31/17 12:00 97.7 57 20 137/86 100 Mechanical Ventilator 30 03/31/17 12:00 95 03/31/17 10:56 104 20 30 03/31/17 09:11 101 18 30 03/31/17 08:52 96 147/69 03/31/17 08:52 147/69 03/31/17 08:10 30 03/31/17 08:00 97.7 96 18 147/69 100 Mechanical Ventilator 30 03/31/17 08:00 125 Intake and Output 03/31/17 04/01/17 19:00 07:00 Intake Total 740 ml 995.000 ml Output Total 501 ml 480 ml Balance 239 ml 515.000 ml Intake Free Water 200 ml 100 ml IV Total 400.000 ml Tube Feeding 360 ml 495 ml Other 180 ml Output Urine Total 500 ml 480 ml Stool Total 1 ml # Bowel Movements 2 1 Objective GENERAL: The patient is a well-developed female, withdrawn, poorly responsive. HEENT: Negative except both pupils are sluggish. Tracheostomy is midline. Carotids are 2+. LUNGS: Coarse breath sounds. Moderate air entry. no wheeze or rhonchi CARDIAC: S1 and S2. Regular rhythm. Positive S4. No murmurs or rubs. mildly tachycardic ABDOMEN: Soft, nontender, and nondistended. G-tube in place.no HSM EXTREMITIES: No cyanosis or clubbing. There is no edema. Degenerative joint disease. Contractures noted. NEUROLOGIC: Poorly responsive. Nonverbal. Laboratory Tests 04/01/17 04:50: White Blood Count 12.0H, Red Blood Count 3.24L, Hemoglobin 8.9L, Hematocrit 27.6L, Mean Corpuscular Volume 85, Mean Corpuscular Hemoglobin 27.4, Mean Corpuscular Hemoglobin Concent 32.1, Red Cell Distribution Width 15.1H, Platelet Count 191, Mean Platelet Volume 12.0H, Neutrophils (%) (Auto) 61.7, Lymphocytes (%) (Auto) 20.1, Monocytes (%) (Auto) 13.6H, Eosinophils (%) (Auto) 2.4, Basophils (%) (Auto) 2.2H, Sodium Level 146H, Potassium Level 3.3L, Chloride Level 105, Carbon Dioxide Level 28, Anion Gap 13, Blood Urea Nitrogen 14, Creatinine 0.7, Estimat Glomerular Filtration Rate > 60, Glucose Level 148H , Lactic Acid Level 2.00, Calcium Level 8.6, Total Bilirubin < 0.2, Aspartate Amino Transf (AST/SGOT) 9, Alanine Aminotransferase (ALT/SGPT) 5, Alkaline Phosphatase 70, Total Protein 7.4, Albumin 2.3L, Globulin 5.1, Albumin/Globulin Ratio 0.4L Current Medications Medications (Trade) Dose Ordered Sig/Robert Route PRN Reason Start Time Stop Time Status Last Admin Dose Admin Acetaminophen (Tylenol) 650 mg Q4H PRN GT Headache/Temp > 101 03/28/17 19:30 04/27/17 19:29 03/31/17 04:41 Acetaminophen/ Hydrocodone Bitart ([place] 5/325) 1 tab QIDPRN PRN GT Moderate Pain (Pain Scale 4-6) 03/28/17 19:30 04/04/17 19:29 03/29/17 22:59 Albuterol/ Ipratropium 3 ml 3 ml Q4H PRN HHN Shortness of Breath 03/28/17 19:30 04/02/17 19:29 Aspirin (Ecotrin) 81 mg DAILY ORAL 03/29/17 09:00 04/28/17 08:59 03/31/17 08:44 Benazepril HCl (Lotensin) 10 mg DAILY GT 03/29/17 09:00 04/28/17 08:59 03/31/17 08:52 Bisacodyl (Dulcolax) 10 mg DAILY PRN RECTAL Constipation 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 03/28/17 19:30 04/27/17 19:29 Docusate Sodium (Colace) 250 mg TWICE A DAY ORAL 03/29/17 09:00 04/28/17 08:59 03/31/17 08:44 Epoetin Ilia (Procrit (for non ESRD use)) 7,000 units FRI-FRI-FRI SUBQ 03/31/17 21:00 04/30/17 20:59 03/31/17 21:09 Fluconazole (Diflucan) 100 mg DAILY ORAL 03/31/17 12:00 04/07/17 11:59 03/31/17 13:17 Lansoprazole (Prevacid) 30 mg DAILY GT 03/29/17 09:00 04/28/17 08:59 03/31/17 08:44 Magnesium Hydroxide (Mom) 30 ml DAILY PRN GT Constipation FIRST LINE AGENT 03/28/17 19:30 04/27/17 19:29 Metformin HCl (Glucophage) 500 mg BID GT 03/29/17 09:00 04/28/17 08:59 03/31/17 17:32 Metoprolol Tartrate (Lopressor) 12.5 mg DAILY GT 03/29/17 09:00 04/28/17 08:59 03/31/17 08:52 Multivitamins Therapeutic (Therapeutic Multivitamin) 1 ea DAILY ORAL 03/29/17 09:00 04/28/17 08:59 03/31/17 08:44 Ondansetron HCl (Zofran) 4 mg Q6H PRN GT Nausea & Vomiting 03/28/17 19:30 04/27/17 19:29 Piperacillin Sod/ Tazobactam Sod/ Dextrose (Zosyn/D5W) 100 ml @ 25 mls/hr EVERY 8 HOURS IV 03/29/17 14:00 04/03/17 13:59 04/01/17 05:43 Sodium Phosphate (Fleet's Sodium Phosl Enema) 133 ml DAILYPRN PRN RECTAL CONSTIPATION THIRD LINE AGENT 03/28/17 19:30 04/27/17 19:29 Valproic Acid (Depakene) 750 mg EVERY 12 HOURS NG 03/28/17 21:00 04/27/17 20:59 03/31/17 20:40 Vancomycin HCl 1 ea 1 ea DAILY PRN MISC Per rx protocol 03/30/17 08:45 04/29/17 08:44 Vancomycin HCl/ Dextrose (Vancomycin/D5W) 275 ml @ 183.708 mls/hr Q12H IVPB 03/30/17 22:00 04/04/17 21:59 03/31/17 21:33 Zinc Sulfate (Zinc Sulfate) 220 mg DAILY GT 03/29/17 09:00 04/28/17 08:59 03/31/17 08:45 HAFSA PRESTON April 01, 2017 07:57
[2017-04-01 08:00] VITALS: BP 114/57
[2017-04-01] MEDS ORDERED: KCl 10% 40mEq/30ml liquid NG ONE (08:45)
[2017-04-01] MEDS: Docusate 250mg cap ORAL SCH ×2 (09:00→18:00)
[2017-04-01] MEDS: Zinc Sulfate 220mg cap GT SCH (09:04)
[2017-04-01] MEDS: metFORMIN 500mg tab GT SCH ×2 (09:04→18:20)
[2017-04-01] MEDS: Aspirin EC 81mg tab ORAL SCH (09:04)
[2017-04-01] MEDS: Valproic Acid 250mg/5ml Liquid NG SCH ×2 (09:04→20:44)
[2017-04-01] MEDS: Multivitamin w/Minerals tab ORAL SCH (09:04)
[2017-04-01] MEDS: Fluconazole 100mg tab ORAL SCH (09:04)
[2017-04-01] MEDS: Metoprolol 25mg tab GT SCH (09:07)
[2017-04-01] MEDS: Benazepril 10mg tab GT SCH (09:53)
[2017-04-01] MEDS: Acetaminophen 650mg/20.3ml GT PRN (09:54)
--- NOTE | 2017-04-01 10:50 | Infectious Diseases Prog Note ---
Assessment/Plan Assessment/Plan A: Sepsis Pneumonia UTI CoANS in blood, likely concamination VDRF DM Dementia P; discontinue Zosyn & Vancomycin start on Cefepime & Amikacin CXR Subjective ROS Limited/Unobtainable: Yes Constitutional: Reports: fever, other - Zom=[id number] Allergies: Coded Allergies: HEPARIN (Unverified Allergy, Unknown, 03/28/17) HEPARIN (PORCINE) (Verified Allergy, Unknown, 03/31/10) HEPARIN ANALOGUES (Unverified Allergy, Unknown, UNK, 12/18/12) Objective Vital Signs Last 24 Hour Vital Signs Date Time Temp Pulse Resp B/P Pulse Ox O2 Delivery O2 Flow Rate FiO2 04/01/17 09:53 114/59 04/01/17 09:17 108 19 30 04/01/17 09:07 98 114/57 04/01/17 08:00 108 04/01/17 08:00 30 04/01/17 08:00 100.2 102 18 114/57 100 Mechanical Ventilator 30 04/01/17 07:30 100 18 30 04/01/17 05:21 106 18 30 04/01/17 04:01 101 20 30 04/01/17 04:00 98.7 115 18 125/68 100 04/01/17 04:00 115 04/01/17 04:00 30 04/01/17 01:27 113 18 30 04/01/17 00:00 99.5 110 18 129/61 100 Mechanical Ventilator 04/01/17 00:00 112 04/01/17 00:00 30 03/31/17 23:31 116 20 30 03/31/17 21:49 95 24 30 03/31/17 20:00 104 03/31/17 20:00 30 03/31/17 20:00 98.1 98 18 122/72 100 Mechanical Ventilator 03/31/17 19:46 103 18 30 03/31/17 16:30 99 18 30 03/31/17 16:00 99.7 98 19 136/67 100 Mechanical Ventilator 30 03/31/17 16:00 96 03/31/17 16:00 30 03/31/17 14:59 100 19 30 03/31/17 13:13 95 18 30 03/31/17 12:15 30 03/31/17 12:00 97.7 57 20 137/86 100 Mechanical Ventilator 30 03/31/17 12:00 95 03/31/17 10:56 104 20 30 Height (Feet): 5 Height (Inches): 3.00 Weight (Pounds): 143 HEENT: status post trach Respiratory/Chest: lungs clear, other - on ventilator Cardiovascular: tachycardia Abdomen: soft, non tender, other - GT feeding Extremities: no edema, other - Peripheral line Neurologic/Psychiatric: unresponsiveness, other Laboratory Tests Test 04/01/17 04:50 04/01/17 09:00 White Blood Count 12.0 K/UL (4.8-10.8) H Red Blood Count 3.24 M/UL (4.20-5.40) L Hemoglobin 8.9 G/DL (12.0-16.0) L Hematocrit 27.6 % (37.0-47.0) L Mean Corpuscular Volume 85 FL (80-99) Mean Corpuscular Hemoglobin 27.4 PG (27.0-31.0) Mean Corpuscular Hemoglobin Concent 32.1 G/DL (32.0-36.0) Red Cell Distribution Width 15.1 % (11.6-14.8) H Platelet Count 191 K/UL (150-450) Mean Platelet Volume 12.0 FL (6.5-10.1) H Neutrophils (%) (Auto) 61.7 % (45.0-75.0) Lymphocytes (%) (Auto) 20.1 % (20.0-45.0) Monocytes (%) (Auto) 13.6 % (1.0-10.0) H Eosinophils (%) (Auto) 2.4 % (0.0-3.0) Basophils (%) (Auto) 2.2 % (0.0-2.0) H Sodium Level 146 mEQ/L (135-145) H Potassium Level 3.3 mEQ/L (3.4-4.9) L Chloride Level 105 mEQ/L (98-107) Carbon Dioxide Level 28 mEQ/L (20-30) Anion Gap 13 (5-15) Blood Urea Nitrogen 14 mg/dL (7-23) Creatinine 0.7 mg/dL (0.5-0.9) Estimat Glomerular Filtration Rate > 60 mL/min (>60) Glucose Level 148 mg/dL (74-106) H Lactic Acid Level 2.00 mmol/L (0.66-2.22) 2.10 mmol/L (0.66-2.22) Calcium Level 8.6 mg/dL (8.6-10.2) Total Bilirubin < 0.2 mg/dL (0.0-1.2) Aspartate Amino Transf (AST/SGOT) 9 U/L (5-40) Alanine Aminotransferase (ALT/SGPT) 5 U/L (3-33) Alkaline Phosphatase 70 U/L (35-104) Total Protein 7.4 g/dL (6.6-8.7) Albumin 2.3 g/dL (3.5-5.2) L Globulin 5.1 g/dL Albumin/Globulin Ratio 0.4 (1.0-2.7) L Vancomycin Level Trough 40.2 ug/mL (5.0-12.0) H Current Medications Medications (Trade) Dose Ordered Sig/Robert Route PRN Reason Start Time Stop Time Status Last Admin Dose Admin Acetaminophen (Tylenol) 650 mg Q4H PRN GT Headache/Temp > 101 03/28/17 19:30 04/27/17 19:29 04/01/17 09:54 Acetaminophen/ Hydrocodone Bitart ([place] 5/325) 1 tab QIDPRN PRN GT Moderate Pain (Pain Scale 4-6) 03/28/17 19:30 04/04/17 19:29 03/29/17 22:59 Albuterol/ Ipratropium 3 ml 3 ml Q4H PRN HHN Shortness of Breath 03/28/17 19:30 04/02/17 19:29 Aspirin (Ecotrin) 81 mg DAILY ORAL 03/29/17 09:00 04/28/17 08:59 04/01/17 09:04 Benazepril HCl (Lotensin) 10 mg DAILY GT 03/29/17 09:00 04/28/17 08:59 04/01/17 09:53 Bisacodyl (Dulcolax) 10 mg DAILY PRN RECTAL Constipation 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 03/28/17 19:30 04/27/17 19:29 Docusate Sodium (Colace) 250 mg TWICE A DAY ORAL 03/29/17 09:00 04/28/17 08:59 03/31/17 08:44 Epoetin Ilia (Procrit (for non ESRD use)) 7,000 units FRI-FRI-FRI SUBQ 03/31/17 21:00 04/30/17 20:59 03/31/17 21:09 Fluconazole (Diflucan) 100 mg DAILY ORAL 03/31/17 12:00 04/07/17 11:59 04/01/17 09:04 Lansoprazole (Prevacid) 30 mg DAILY GT 03/29/17 09:00 04/28/17 08:59 04/01/17 09:04 Magnesium Hydroxide (Mom) 30 ml DAILY PRN GT Constipation FIRST LINE AGENT 03/28/17 19:30 04/27/17 19:29 Metformin HCl (Glucophage) 500 mg BID GT 03/29/17 09:00 04/28/17 08:59 04/01/17 09:04 Metoprolol Tartrate (Lopressor) 12.5 mg DAILY GT 03/29/17 09:00 04/28/17 08:59 04/01/17 09:07 Multivitamins Therapeutic (Therapeutic Multivitamin) 1 ea DAILY ORAL 03/29/17 09:00 04/28/17 08:59 04/01/17 09:04 Ondansetron HCl (Zofran) 4 mg Q6H PRN GT Nausea & Vomiting 03/28/17 19:30 04/27/17 19:29 Piperacillin Sod/ Tazobactam Sod/ Dextrose (Zosyn/D5W) 100 ml @ 25 mls/hr EVERY 8 HOURS IV 03/29/17 14:00 04/03/17 13:59 04/01/17 05:43 Sodium Phosphate (Fleet's Sodium Phosl Enema) 133 ml DAILYPRN PRN RECTAL CONSTIPATION THIRD LINE AGENT 03/28/17 19:30 04/27/17 19:29 Valproic Acid (Depakene) 750 mg EVERY 12 HOURS NG 03/28/17 21:00 04/27/17 20:59 04/01/17 09:04 Vancomycin HCl (Vanco rx to dose) 1 ea DAILY PRN MISC Per rx protocol 03/30/17 08:45 04/29/17 08:44 Zinc Sulfate (Zinc Sulfate) 220 mg DAILY GT 03/29/17 09:00 04/28/17 08:59 04/01/17 09:04 RADHA BURNETT April 01, 2017 10:50
[2017-04-01] MEDS ORDERED: Amikacin Rx to dose MISC PRN (11:00)
[2017-04-01 12:00] VITALS: BP 128/87
--- NOTE | 2017-04-01 12:32 | Diagnostic Imaging Report ---
Indication: Dyspnea Technique: One view of the chest Comparison: 03/28/2017 Findings: There is atelectasis at the left lung base. There is a small left pleural effusion. Tracheostomy remains. Right lung and pleural space are clear. Previously demonstrated right infrahilar opacity is no longer evident. Heart size is normal. Impression: Since 03/28/2017, interim clearing of previously demonstrated right infrahilar infiltrate Persistent left basilar pleural fluid and atelectasis Other stable findings as described
[2017-04-01] MEDS: Cefepime HCl 1 GM in D5W 55 ML IVPB SCH ×2 (12:37→20:44)
[2017-04-01] MEDS: Amikacin 750 MG in NS 110 ML IV SCH (14:36)
[2017-04-01 16:00] VITALS: BP 143/66
[2017-04-01] MEDS ORDERED: Tubing IV Secondary IV ONE (17:02)
--- NOTE | 2017-04-01 18:49 | General Progress Note ---
Assessment/Plan Problem List: (1) Fever ICD Codes: R50.9 - Fever, unspecified SNOMED: 087308044 (2) Respiratory failure ICD Codes: J96.90 - Respiratory failure SNOMED: 046671718 (3) Sepsis ICD Codes: A41.9 - Sepsis, unspecified organism SNOMED: 37018555 (4) Pneumonia ICD Codes: J18.9 - Pneumonia, unspecified organism SNOMED: 217709761 Qualifiers: Qualified Codes: J18.1 - Lobar pneumonia, unspecified organism (5) Lactic acid acidosis ICD Codes: E87.2 - Acidosis SNOMED: 75040715 Status: stable, progressing Assessment/Plan follow up cultures- multiple positive cultures abx per ID monitor cxr- improving vent/resp rx gt feeds skin care sz rx monitor bs poor prognosis Subjective ROS Limited/Unobtainable: Yes Constitutional: Reports: malaise, weakness HEENT: Reports: no symptoms Cardiovascular: Reports: no symptoms Respiratory: Reports: cough, shortness of breath, sputum Gastrointestinal/Abdominal: Reports: difficulty swallowing Genitourinary: Reports: no symptoms Neurologic/Psychiatric: Reports: pre-existing deficit, seizure Endocrine: Reports: no symptoms Hematologic/Lymphatic: Reports: anemia Allergies: Coded Allergies: HEPARIN (Unverified Allergy, Unknown, 03/28/17) HEPARIN (PORCINE) (Verified Allergy, Unknown, 03/31/10) HEPARIN ANALOGUES (Unverified Allergy, Unknown, UNK, 12/18/12) All Systems: reviewed and negative except above Subjective remains intermittently congested. +blood cultures noted. on abx. on feeds and ivf. labs reviewed. lactic acid level better. cxr also improving Objective Last 24 Hour Vital Signs Date Time Temp Pulse Resp B/P Pulse Ox O2 Delivery O2 Flow Rate FiO2 04/01/17 16:54 88 20 30 04/01/17 16:00 98.4 89 18 143/66 99 Mechanical Ventilator 30 04/01/17 16:00 30 04/01/17 16:00 97 04/01/17 15:22 89 18 30 04/01/17 13:09 94 18 30 04/01/17 12:00 30 04/01/17 12:00 98 04/01/17 12:00 98.8 98 18 128/87 100 Mechanical Ventilator 30 04/01/17 11:10 99 17 30 04/01/17 10:30 99.7 04/01/17 09:53 114/59 04/01/17 09:17 108 19 30 04/01/17 09:07 98 114/57 04/01/17 08:00 108 04/01/17 08:00 30 04/01/17 08:00 100.2 102 18 114/57 100 Mechanical Ventilator 30 04/01/17 07:30 100 18 30 04/01/17 05:21 106 18 30 04/01/17 04:01 101 20 30 04/01/17 04:00 98.7 115 18 125/68 100 04/01/17 04:00 115 04/01/17 04:00 30 04/01/17 01:27 113 18 30 04/01/17 00:00 99.5 110 18 129/61 100 Mechanical Ventilator 04/01/17 00:00 112 04/01/17 00:00 30 03/31/17 23:31 116 20 30 03/31/17 21:49 95 24 30 03/31/17 20:00 104 03/31/17 20:00 30 03/31/17 20:00 98.1 98 18 122/72 100 Mechanical Ventilator 03/31/17 19:46 103 18 30 Intake and Output 03/31/17 04/01/17 19:00 07:00 Intake Total 740 ml 1065.000 ml Output Total 501 ml 480 ml Balance 239 ml 585.000 ml Intake Free Water 200 ml 100 ml IV Total 425.000 ml Tube Feeding 360 ml 540 ml Other 180 ml Output Urine Total 500 ml 480 ml Stool Total 1 ml # Bowel Movements 2 1 Laboratory Tests 04/01/17 04:50: White Blood Count 12.0H, Red Blood Count 3.24L, Hemoglobin 8.9L, Hematocrit 27.6L, Mean Corpuscular Volume 85, Mean Corpuscular Hemoglobin 27.4, Mean Corpuscular Hemoglobin Concent 32.1, Red Cell Distribution Width 15.1H, Platelet Count 191, Mean Platelet Volume 12.0H, Neutrophils (%) (Auto) 61.7, Lymphocytes (%) (Auto) 20.1, Monocytes (%) (Auto) 13.6H, Eosinophils (%) (Auto) 2.4, Basophils (%) (Auto) 2.2H, Sodium Level 146H, Potassium Level 3.3L, Chloride Level 105, Carbon Dioxide Level 28, Anion Gap 13, Blood Urea Nitrogen 14, Creatinine 0.7, Estimat Glomerular Filtration Rate > 60, Glucose Level 148H , Lactic Acid Level 2.00, Calcium Level 8.6, Total Bilirubin < 0.2, Aspartate Amino Transf (AST/SGOT) 9, Alanine Aminotransferase (ALT/SGPT) 5, Alkaline Phosphatase 70, Total Protein 7.4, Albumin 2.3L, Globulin 5.1, Albumin/Globulin Ratio 0.4L 04/01/17 09:00: Lactic Acid Level 2.10, Vancomycin Level Trough 40.2H Height (Feet): 5 Height (Inches): 3.00 Weight (Pounds): 143 Objective General Appearance: WD/WN, lethargic, confused, cachetic Neck: supple Cardiovascular: tachycardia Respiratory/Chest: rhonchi - bilaterally Abdomen: normal bowel sounds, non tender, soft, no organomegaly Edema: no edema noted Arm (L), no edema noted Arm (R), no edema noted Leg (L), no edema noted Leg (R), no edema noted Pedal (L), no edema noted Pedal (R), no edema noted Generalized Neurologic: disoriented, unresponsive, aphasia ALBER JUDGE April 01, 2017 18:49
[2017-04-01 20:00] VITALS: BP 138/68
[2017-04-02] VITALS: BP 128/68
--- NOTE | 2017-04-02 02:00 | Progress Note ---
DATE: 04/01/2017 CARDIOLOGY PROGRESS NOTE SUBJECTIVE: The patient remains on ventilator support via tracheostomy. Monitored rhythm, sinus tachycardia with occasional atrial ectopics. OBJECTIVE: VITAL SIGNS: Ranging with blood pressure 125/68, respiratory rate 18 to 20, and heart rate 100 to 115, no fevers. LUNGS: Coarse breath sounds. Scattered rhonchi. HEART: Regular rhythm. Rapid rate. Normal S1, S2. ABDOMEN: Soft. EXTREMITIES: Trace dependent edema. G-tube intact. NEUROLOGIC: Noncommunicative. LABORATORY DATA: White count 12 and hemoglobin 8.9. Sodium 146, potassium 3.3, bicarbonate 28, BUN 14, creatinine 0.7, and glucose 148. Lactic acid 2. Albumin 2.3. IMPRESSION: 1. Sepsis. 2. Healthcare acquired pneumonia. 3. Hypokalemia. 4. Secondary sinus tachycardia. 5. Respiratory failure with tracheostomy. 6. Lactic acidosis, recovered. 7. Chronic diastolic congestive heart failure. 8. Possible bacteremia versus contaminant. 9. Dehydration, hypernatremia PLAN: 1. Antimicrobials per Infectious Disease trousseau consultant. 2. Potassium replacement. 3. Check magnesium. 4. Titrate beta-simi. 5. Monitor volume status. 6. Free water replacement. 7. Respiratory hygiene. 8. DVT prophylaxis. 9. Nutrition by G-tube. Benedict Gayle M.D. DR: ADEEL JOB#: [id number] CC:
[2017-04-02 02:33] LABS: ALANINE AMINOTRANSFERASE 5 U/L (3-33); ALBUMIN/GLOBULIN RATIO 0.4 (1.0-2.7); ANION GAP 13 (5-15); ASPARTATE AMINO TRANSFERASE 7 U/L (5-40); CALCIUM 8.7 mg/dL (8.6-10.2); CARBON DIOXIDE 27 mEQ/L (20-30); CHLORIDE 104 mEQ/L (98-107); CREATININE 0.6 mg/dL (0.5-0.9); GLOMERULAR FILTRATION RATE > 60 mL/min (>60); HEMOLYSIS 0; MAGNESIUM 2.1 mg/dL (1.7-2.5); POTASSIUM 3.3 mEQ/L (3.4-4.9); SODIUM 144 mEQ/L (135-145); TOTAL PROTEIN 7.3 g/dL (6.6-8.7)
[2017-04-02 04:00] VITALS: BP 138/71
[2017-04-02 08:00] VITALS: BP 137/73
[2017-04-02] MEDS: Cefepime HCl 1 GM in D5W 55 ML IVPB SCH ×2 (08:50→20:18)
[2017-04-02] MEDS: Docusate 100mg/10ml Liq ORAL SCH ×2 (08:50→18:00)
[2017-04-02] MEDS: Benazepril 10mg tab GT SCH (08:50)
[2017-04-02] MEDS: Aspirin Baby 81mg NG SCH (08:50)
[2017-04-02] MEDS: Metoprolol 25mg tab GT SCH (08:50)
[2017-04-02] MEDS: metFORMIN 500mg tab GT SCH ×2 (08:50→18:08)
[2017-04-02] MEDS: Valproic Acid 250mg/5ml Liquid NG SCH ×2 (08:50→20:18)
[2017-04-02] MEDS: Zinc Sulfate 220mg cap GT SCH (08:50)
[2017-04-02] MEDS: Fluconazole 100mg tab ORAL SCH (08:51)
[2017-04-02] MEDS: Multivitamin w/Minerals tab ORAL SCH (08:51)
--- NOTE | 2017-04-02 08:51 | Pulmonology Progress Note ---
Assessment/Plan Assessment/Plan IMPRESSION: 1. Respiratory failure. 2. Evidence of pneumonia, possible parapneumonic effusion, possible sepsis. 3. Evidence of leukocytosis. 4. Evidence of hypernatremia, possibly mildly prerenal. 5. History of tracheostomy, G-tube. 6. History of chronic encephalopathy. 7. History of diabetes. 8. Hypertension. 9. sinus tachycardia 10. fevers PLAN exam same ID noted antibiotics respiratory care ventilator as is; no wean oxygen therapy snf meds monitor for change monitor vital signs monitor sodium levels and WBC stabilize further dc soon will discuss impression, plan, and exam edited and reviewed in detail care discussed with RN Subjective ROS Limited/Unobtainable: Yes Allergies: Coded Allergies: HEPARIN (Unverified Allergy, Unknown, 03/28/17) HEPARIN (PORCINE) (Verified Allergy, Unknown, 03/31/10) HEPARIN ANALOGUES (Unverified Allergy, Unknown, UNK, 12/18/12) Subjective withdrawn poor LOC care noted and reviewed findings discussed Objective Last 24 Hour Vital Signs Date Time Temp Pulse Resp B/P Pulse Ox O2 Delivery O2 Flow Rate FiO2 04/02/17 06:31 92 18 30 04/02/17 05:00 97 19 30 04/02/17 04:00 102 04/02/17 04:00 30 04/02/17 04:00 98.2 92 18 138/71 99 Mechanical Ventilator 04/02/17 03:25 95 18 30 04/02/17 01:26 88 18 30 04/02/17 00:00 30 04/02/17 00:00 95 04/02/17 00:00 98.6 85 18 128/68 99 Mechanical Ventilator 04/01/17 23:05 100 18 30 04/01/17 21:06 93 18 30 04/01/17 20:00 30 04/01/17 20:00 84 04/01/17 20:00 98.6 92 18 138/68 97 Mechanical Ventilator 30 04/01/17 18:55 90 18 30 04/01/17 16:54 88 20 04/01/17 16:00 98.4 89 18 143/66 99 Mechanical Ventilator 30 04/01/17 16:00 30 04/01/17 16:00 97 04/01/17 15:22 89 18 30 04/01/17 13:09 94 18 30 5/30/17 12:00 30 04/01/17 12:00 98 04/01/17 12:00 98.8 98 18 128/87 100 Mechanical Ventilator 30 04/01/17 11:10 99 17 30 04/01/17 10:30 99.7 04/01/17 09:53 114/59 04/01/17 09:17 108 19 30 04/01/17 09:07 98 114/57 Intake and Output 04/01/17 04/02/17 19:00 07:00 Intake Total 1008 ml 595 ml Output Total 400 ml 400 ml Balance 608 ml 195 ml Intake Free Water 200 ml IV Total 218 ml 55 ml Tube Feeding 540 ml 540 ml Other 50 ml Output Urine Total 400 ml 400 ml # Bowel Movements 4 1 Objective GENERAL: The patient is a well-developed female, withdrawn, poorly responsive. HEENT: Negative except both pupils are sluggish. Tracheostomy is midline. Carotids are 2+. LUNGS: Coarse breath sounds. Moderate air entry. no wheeze or rhonchi CARDIAC: S1 and S2. Regular rhythm. Positive S4. No murmurs or rubs. mildly tachycardic ABDOMEN: Soft, nontender, and nondistended. G-tube in place.no HSM EXTREMITIES: No cyanosis or clubbing. There is no edema. Degenerative joint disease. Contractures noted. NEUROLOGIC: Poorly responsive. Nonverbal. Laboratory Tests 04/01/17 09:00: Lactic Acid Level 2.10, Vancomycin Level Trough 40.2H 04/02/17 02:10: Sodium Level 144, Potassium Level 3.3L, Chloride Level 104, Carbon Dioxide Level 27, Anion Gap 13, Blood Urea Nitrogen 16, Creatinine 0.6, Estimat Glomerular Filtration Rate > 60, Glucose Level 156H, Calcium Level 8.7, Magnesium Level 2.1, Total Bilirubin 0.2, Aspartate Amino Transf (AST/SGOT) 7, Alanine Aminotransferase (ALT/SGPT) 5, Alkaline Phosphatase 61, Pro-B-Type Natriuretic Peptide 528H, Total Protein 7.3, Albumin 2.3L, Globulin 5.0, Albumin /Globulin Ratio 0.4L, Random Amikacin Level 7.7 Current Medications Medications (Trade) Dose Ordered Sig/Robert Route PRN Reason Start Time Stop Time Status Last Admin Dose Admin Acetaminophen (Tylenol) 650 mg Q4H PRN GT Headache/Temp > 101 03/28/17 19:30 04/27/17 19:29 04/01/17 09:54 Acetaminophen/ Hydrocodone Bitart ([place] 5/325) 1 tab QIDPRN PRN GT Moderate Pain (Pain Scale 4-6) 03/28/17 19:30 04/04/17 19:29 03/29/17 22:59 Albuterol/ Ipratropium (DuoNeb 0.5-3(2.5)mg/3ml) 3 ml Q4H PRN HHN Shortness of Breath 03/28/17 19:30 04/02/17 19:29 Amikacin Protocol 1 ea 1 ea DAILY PRN MISC Per rx protocol 04/01/17 11:00 05/01/17 10:59 Amikacin Sulfate/ Sodium Chloride (Amikin/Sodium Chloride) 113 ml @ 113 mls/hr Q24H IV 04/01/17 14:00 04/08/17 13:59 04/01/17 14:36 Aspirin (ASA) 81 mg DAILY NG 04/02/17 09:00 05/02/17 08:59 Benazepril HCl (Lotensin) 10 mg DAILY GT 03/29/17 09:00 04/28/17 08:59 04/01/17 09:53 Bisacodyl (Dulcolax) 10 mg DAILY PRN RECTAL Constipation 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 03/28/17 19:30 04/27/17 19:29 Cefepime HCl/ Dextrose (Maxipime/D5W) 55 ml @ 110 mls/hr EVERY 12 HOURS IVPB 04/01/17 13:00 04/08/17 12:59 04/01/17 20:44 Docusate Sodium (Colace) 250 mg BID ORAL 04/02/17 09:00 05/02/17 08:59 Epoetin Ilia (Procrit (for non ESRD use)) 7,000 units FRI-FRI-FRI SUBQ 03/31/17 21:00 04/30/17 20:59 03/31/17 21:09 Fluconazole 100 mg 100 mg DAILY ORAL 03/31/17 12:00 04/07/17 11:59 04/01/17 09:04 Lansoprazole (Prevacid) 30 mg DAILY GT 03/29/17 09:00 04/28/17 08:59 04/01/17 09:04 Magnesium Hydroxide (Mom) 30 ml DAILY PRN GT Constipation FIRST LINE AGENT 03/28/17 19:30 04/27/17 19:29 Metformin HCl (Glucophage) 500 mg BID GT 03/29/17 09:00 04/28/17 08:59 04/01/17 18:20 Metoprolol Tartrate (Lopressor) 12.5 mg DAILY GT 03/29/17 09:00 04/28/17 08:59 04/01/17 09:07 Multivitamins Therapeutic (Therapeutic Multivitamin) 1 ea DAILY ORAL 03/29/17 09:00 04/28/17 08:59 04/01/17 09:04 Ondansetron HCl (Zofran) 4 mg Q6H PRN GT Nausea & Vomiting 03/28/17 19:30 04/27/17 19:29 Potassium Chloride (K-Dur) 20 meq ONCE ONCE ORAL 04/02/17 09:30 04/02/17 09:31 Sodium Phosphate (Fleet's Sodium Phosl Enema) 133 ml DAILYPRN PRN RECTAL CONSTIPATION THIRD LINE AGENT 03/28/17 19:30 04/27/17 19:29 Valproic Acid (Depakene) 750 mg EVERY 12 HOURS NG 03/28/17 21:00 04/27/17 20:59 04/01/17 20:44 Zinc Sulfate (Zinc Sulfate) 220 mg DAILY GT 03/29/17 09:00 04/28/17 08:59 04/01/17 09:04 HAFSA PRESTON April 02, 2017 08:51
--- NOTE | 2017-04-02 09:09 | Infectious Diseases Prog Note ---
Assessment/Plan Assessment/Plan A: Sepsis Pneumonia with pseudomonas UTI CoANS in blood, likely concamination VDRF DM Dementia P; continue Cefepime & Amikacin Subjective ROS Limited/Unobtainable: Yes Constitutional: Reports: other - no fever today Allergies: Coded Allergies: HEPARIN (Unverified Allergy, Unknown, 03/28/17) HEPARIN (PORCINE) (Verified Allergy, Unknown, 03/31/10) HEPARIN ANALOGUES (Unverified Allergy, Unknown, UNK, 12/18/12) Objective Vital Signs Last 24 Hour Vital Signs Date Time Temp Pulse Resp B/P Pulse Ox O2 Delivery O2 Flow Rate FiO2 04/02/17 08:50 93 137/73 04/02/17 08:50 137/73 04/02/17 08:00 30 04/02/17 08:00 98.8 93 18 137/73 100 Mechanical Ventilator 30 04/02/17 06:31 92 18 30 04/02/17 05:00 97 19 30 04/02/17 04:00 102 04/02/17 04:00 30 04/02/17 04:00 98.2 92 18 138/71 99 Mechanical Ventilator 30 04/02/17 03:25 95 18 30 04/02/17 01:26 88 18 30 04/02/17 00:00 30 04/02/17 00:00 95 04/02/17 00:00 98.6 85 18 128/68 99 Mechanical Ventilator 30 04/01/17 23:05 100 18 30 04/01/17 21:06 93 18 30 04/01/17 20:00 30 04/01/17 20:00 84 04/01/17 20:00 98.6 92 18 138/68 97 Mechanical Ventilator 30 04/01/17 18:55 90 18 30 04/01/17 16:54 88 20 30 04/01/17 16:00 98.4 89 18 143/66 99 Mechanical Ventilator 04/01/17 16:00 30 04/01/17 16:00 97 04/01/17 15:22 89 18 30 04/01/17 13:09 94 18 30 04/01/17 12:00 30 04/01/17 12:00 98 04/01/17 12:00 98.8 98 18 128/87 100 Mechanical Ventilator 30 04/01/17 11:10 99 17 30 04/01/17 10:30 99.7 5/30/17 09:53 114/59 04/01/17 09:17 108 19 30 Height (Feet): 5 Height (Inches): 3.00 Weight (Pounds): 143 General Appearance: no acute distress HEENT: status post trach Respiratory/Chest: lungs clear, other - on ventilator Cardiovascular: normal rate Abdomen: normal bowel sounds, other - GT feeding Extremities: no edema Neurologic/Psychiatric: aphasia, other - awake Laboratory Tests Test 04/02/17 02:10 Sodium Level 144 mEQ/L (135-145) Potassium Level 3.3 mEQ/L (3.4-4.9) L Chloride Level 104 mEQ/L (98-107) Carbon Dioxide Level 27 mEQ/L (20-30) Anion Gap 13 (5-15) Blood Urea Nitrogen 16 mg/dL (7-23) Creatinine 0.6 mg/dL (0.5-0.9) Estimat Glomerular Filtration Rate > 60 mL/min (>60) Glucose Level 156 mg/dL (74-106) H Calcium Level 8.7 mg/dL (8.6-10.2) Magnesium Level 2.1 mg/dL (1.7-2.5) Total Bilirubin 0.2 mg/dL (0.0-1.2) Aspartate Amino Transf (AST/SGOT) 7 U/L (5-40) Alanine Aminotransferase (ALT/SGPT) 5 U/L (3-33) Alkaline Phosphatase 61 U/L (35-104) Pro-B-Type Natriuretic Peptide 528 pg/mL (0-125) H Total Protein 7.3 g/dL (6.6-8.7) Albumin 2.3 g/dL (3.5-5.2) L Globulin 5.0 g/dL Albumin/Globulin Ratio 0.4 (1.0-2.7) L Random Amikacin Level 7.7 ug/mL Current Medications Medications (Trade) Dose Ordered Sig/Robert Route PRN Reason Start Time Stop Time Status Last Admin Dose Admin Acetaminophen (Tylenol) 650 mg Q4H PRN GT Headache/Temp > 101 03/28/17 19:30 04/27/17 19:29 04/01/17 09:54 Acetaminophen/ Hydrocodone Bitart ([place] 5/325) 1 tab QIDPRN PRN GT Moderate Pain (Pain Scale 4-6) 03/28/17 19:30 04/04/17 19:29 03/29/17 22:59 Albuterol/ Ipratropium (DuoNeb 0.5-3(2.5)mg/3ml) 3 ml Q4H PRN HHN Shortness of Breath 03/28/17 19:30 04/02/17 19:29 Amikacin Protocol 1 ea 1 ea DAILY PRN MISC Per rx protocol 04/01/17 11:00 05/01/17 10:59 Amikacin Sulfate/ Sodium Chloride (Amikin/Sodium Chloride) 113 ml @ 113 mls/hr Q24H IV 04/01/17 14:00 04/08/17 13:59 04/01/17 14:36 Aspirin (ASA) 81 mg DAILY NG 04/02/17 09:00 05/02/17 08:59 04/02/17 08:50 Benazepril HCl (Lotensin) 10 mg DAILY GT 03/29/17 09:00 04/28/17 08:59 04/02/17 08:50 Bisacodyl (Dulcolax) 10 mg DAILY PRN RECTAL Constipation 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 03/28/17 19:30 04/27/17 19:29 Cefepime HCl/ Dextrose (Maxipime/D5W) 55 ml @ 110 mls/hr EVERY 12 HOURS IVPB 04/01/17 13:00 04/08/17 12:59 04/02/17 08:50 Docusate Sodium (Colace) 250 mg BID ORAL 04/02/17 09:00 05/02/17 08:59 04/02/17 08:50 Epoetin Ilia (Procrit (for non ESRD use)) 7,000 units FRI-FRI-FRI SUBQ 03/31/17 21:00 04/30/17 20:59 03/31/17 21:09 Fluconazole 100 mg 100 mg DAILY ORAL 03/31/17 12:00 04/07/17 11:59 04/02/17 08:51 Lansoprazole (Prevacid) 30 mg DAILY GT 03/29/17 09:00 04/28/17 08:59 04/02/17 08:50 Magnesium Hydroxide (Mom) 30 ml DAILY PRN GT Constipation FIRST LINE AGENT 03/28/17 19:30 04/27/17 19:29 Metformin HCl (Glucophage) 500 mg BID GT 03/29/17 09:00 04/28/17 08:59 04/02/17 08:50 Metoprolol Tartrate (Lopressor) 12.5 mg DAILY GT 03/29/17 09:00 04/28/17 08:59 04/02/17 08:50 Multivitamins Therapeutic (Therapeutic Multivitamin) 1 ea DAILY ORAL 03/29/17 09:00 04/28/17 08:59 04/02/17 08:51 Ondansetron HCl (Zofran) 4 mg Q6H PRN GT Nausea & Vomiting 03/28/17 19:30 04/27/17 19:29 Potassium Chloride (K-Dur) 20 meq ONCE ONCE ORAL 04/02/17 09:30 04/02/17 09:31 04/02/17 08:53 Sodium Phosphate (Fleet's Sodium Phosl Enema) 133 ml DAILYPRN PRN RECTAL CONSTIPATION THIRD LINE AGENT 03/28/17 19:30 04/27/17 19:29 Valproic Acid (Depakene) 750 mg EVERY 12 HOURS NG 03/28/17 21:00 04/27/17 20:59 04/02/17 08:50 Zinc Sulfate (Zinc Sulfate) 220 mg DAILY GT 03/29/17 09:00 04/28/17 08:59 04/02/17 08:50 RADHA BURNETT April 02, 2017 09:09
[2017-04-02 12:00] VITALS: BP 134/83
--- NOTE | 2017-04-02 14:44 | General Progress Note ---
Assessment/Plan Problem List: (1) Fever ICD Codes: R50.9 - Fever, unspecified SNOMED: 957480400 (2) Respiratory failure ICD Codes: J96.90 - Respiratory failure SNOMED: 515579810 (3) Sepsis ICD Codes: A41.9 - Sepsis, unspecified organism SNOMED: 89590759 (4) Pneumonia ICD Codes: J18.9 - Pneumonia, unspecified organism SNOMED: 103009962 Qualifiers: Qualified Codes: J18.1 - Lobar pneumonia, unspecified organism (5) Lactic acid acidosis ICD Codes: E87.2 - Acidosis SNOMED: 61216025 Status: stable, progressing Assessment/Plan follow up cultures- multiple positive cultures abx per ID monitor cxr- improving vent/resp rx gt feeds skin care sz rx monitor bs poor prognosis Subjective ROS Limited/Unobtainable: No Constitutional: Reports: fever, weakness HEENT: Reports: no symptoms Cardiovascular: Reports: no symptoms Respiratory: Reports: cough, sputum Gastrointestinal/Abdominal: Reports: no symptoms Genitourinary: Reports: no symptoms Neurologic/Psychiatric: Reports: pre-existing deficit Endocrine: Reports: no symptoms Hematologic/Lymphatic: Reports: anemia Allergies: Coded Allergies: HEPARIN (Unverified Allergy, Unknown, 03/28/17) HEPARIN (PORCINE) (Verified Allergy, Unknown, 03/31/10) HEPARIN ANALOGUES (Unverified Allergy, Unknown, UNK, 12/18/12) All Systems: reviewed and negative except above Subjective remains intermittently congested. overall less suctioning needed. no szs. no bleeding. tolerating feeds. Objective Last 24 Hour Vital Signs Date Time Temp Pulse Resp B/P Pulse Ox O2 Delivery O2 Flow Rate FiO2 04/02/17 12:55 94 18 30 04/02/17 12:00 98.7 86 18 134/83 97 Mechanical Ventilator 30 04/02/17 12:00 30 04/02/17 12:00 86 04/02/17 10:52 90 18 30 04/02/17 09:19 96 19 30 04/02/17 08:50 93 137/73 04/02/17 08:50 137/73 04/02/17 08:00 30 04/02/17 08:00 98.8 93 18 137/73 100 Mechanical Ventilator 30 04/02/17 07:53 92 04/02/17 06:31 92 18 30 04/02/17 05:00 97 19 30 04/02/17 04:00 102 04/02/17 04:00 30 04/02/17 04:00 98.2 92 18 138/71 99 Mechanical Ventilator 30 04/02/17 03:25 95 18 30 04/02/17 01:26 88 18 30 04/02/17 00:00 30 04/02/17 00:00 95 04/02/17 00:00 98.6 85 18 128/68 99 Mechanical Ventilator 30 04/01/17 23:05 100 18 30 04/01/17 21:06 93 18 30 04/01/17 20:00 30 04/01/17 20:00 84 04/01/17 20:00 98.6 92 18 138/68 97 Mechanical Ventilator 30 04/01/17 18:55 90 18 30 04/01/17 16:54 88 20 30 04/01/17 16:00 98.4 89 18 143/66 99 Mechanical Ventilator 04/01/17 16:00 30 04/01/17 16:00 97 04/01/17 15:22 89 18 30 Intake and Output 04/01/17 04/02/17 19:00 07:00 Intake Total 1008 ml 595 ml Output Total 400 ml 400 ml Balance 608 ml 195 ml Intake Free Water 200 ml IV Total 218 ml 55 ml Tube Feeding 540 ml 540 ml Other 50 ml Output Urine Total 400 ml 400 ml # Bowel Movements 4 1 Laboratory Tests 04/02/17 02:10: Sodium Level 144, Potassium Level 3.3L, Chloride Level 104, Carbon Dioxide Level 27, Anion Gap 13, Blood Urea Nitrogen 16, Creatinine 0.6, Estimat Glomerular Filtration Rate > 60, Glucose Level 156H, Calcium Level 8.7, Magnesium Level 2.1, Total Bilirubin 0.2, Aspartate Amino Transf (AST/SGOT) 7, Alanine Aminotransferase (ALT/SGPT) 5, Alkaline Phosphatase 61, Pro-B-Type Natriuretic Peptide 528H, Total Protein 7.3, Albumin 2.3L, Globulin 5.0, Albumin /Globulin Ratio 0.4L, Random Amikacin Level 7.7 Height (Feet): 5 Height (Inches): 3.00 Weight (Pounds): 143 Objective General Appearance: WD/WN, lethargic, confused, cachetic Neck: supple Cardiovascular: tachycardia Respiratory/Chest: rhonchi - bilaterally Abdomen: normal bowel sounds, non tender, soft, no organomegaly Edema: no edema noted Arm (L), no edema noted Arm (R), no edema noted Leg (L), no edema noted Leg (R), no edema noted Pedal (L), no edema noted Pedal (R), no edema noted Generalized Neurologic: disoriented, unresponsive, aphasia ALBER JUDGE April 02, 2017 14:44
[2017-04-02] MEDS: Amikacin 750 MG in NS 110 ML IV SCH (15:14)
[2017-04-02 16:00] VITALS: BP 138/95
[2017-04-02 20:00] VITALS: BP 116/91
[2017-04-02] MEDS: Epogen (for non ESRD use) SUBQ SCH (20:18)
[2017-04-03] VITALS: BP 132/87
[2017-04-03 04:00] VITALS: BP 136/84
[2017-04-03 04:33] LABS: BASOPHILS % (AUTO) 1.9 % (0.0-2.0); EOSINOPHILS % (AUTO) 2.7 % (0.0-3.0); LYMPHOCYTES % (AUTO) 22.7 % (20.0-45.0); MEAN CORPUSCULAR HEMOGLOBIN 26.8 PG (27.0-31.0); MEAN CORPUSCULAR HGB CONC 31.1 G/DL (32.0-36.0); MEAN CORPUSCULAR VOLUME 86 FL (80-99); MEAN PLATELET VOLUME 11.8 FL (6.5-10.1); MONOCYTES % (AUTO) 11.4 % (1.0-10.0); NEUTROPHILS % (AUTO) 61.2 % (45.0-75.0); PLATELET COUNT 208 K/UL (150-450); RED BLOOD COUNT 3.52 M/UL (4.20-5.40); RED CELL DISTRIBUTION WIDTH 15.3 % (11.6-14.8); WHITE BLOOD COUNT 16.6 K/UL (4.8-10.8)
[2017-04-03 04:54] LABS: ALANINE AMINOTRANSFERASE 5 U/L (3-33); ALBUMIN/GLOBULIN RATIO 0.5 (1.0-2.7); ANION GAP 15 (5-15); ASPARTATE AMINO TRANSFERASE 9 U/L (5-40); CARBON DIOXIDE 28 mEQ/L (20-30); CHLORIDE 109 mEQ/L (98-107); CREATININE 0.6 mg/dL (0.5-0.9); GLOMERULAR FILTRATION RATE > 60 mL/min (>60); HEMOLYSIS 2; POTASSIUM 3.8 mEQ/L (3.4-4.9); SODIUM 152 mEQ/L (135-145); TOTAL PROTEIN 8.2 g/dL (6.6-8.7)
--- NOTE | 2017-04-03 06:30 | Progress Note ---
DATE: 04/02/2017 CARDIOLOGY PROGRESS NOTE SUBJECTIVE: The patient remains intermittently congested. Suctioning needs have decreased. He is tolerating feedings. No arrhythmias noted. Monitor sinus with rare atrial ectopics. PHYSICAL EXAMINATION: VITAL SIGNS: Blood pressure 134/83, heart rate 86, respiratory 18, afebrile. LUNGS: Coarse breath sounds with rhonchi. HEART: Regular rhythm and rate. Normal S1, S2. ABDOMEN: Soft. G-tube intact. NEUROLOGIC: Noncommunicative. EXTREMITIES: No edema. IMPRESSION: 1. Sepsis. 2. Pneumonia. 3. Coag-negative Staph bacteremia. 4. Ventilator-dependent respiratory failure. 5. Advanced dementia secondary sinus tachycardia. 6. Chronic diastolic congestive heart failure. 7. Hypertensive heart disease. PLAN: 1. Antimicrobials. 2. Respiratory hygiene. 3. No diuresis. 4. Presently needed follow up laboratory studies. 5. DVT and stress ulcer prophylaxis. 6. Prognosis, poor. Benedict Gayle M.D. DR: MYCHAL JOB#: [id number] CC:
[2017-04-03 08:00] VITALS: BP 141/102
[2017-04-03] MEDS: Docusate 100mg/10ml Liq ORAL SCH ×2 (08:08→17:59)
[2017-04-03] MEDS: Acetaminophen 650mg/20.3ml GT PRN (08:24)
[2017-04-03] MEDS: Valproic Acid 250mg/5ml Liquid NG SCH ×2 (08:25→21:53)
[2017-04-03] MEDS: Zinc Sulfate 220mg cap GT SCH (08:25)
[2017-04-03] MEDS: Aspirin Baby 81mg NG SCH (08:26)
[2017-04-03] MEDS: metFORMIN 500mg tab GT SCH ×2 (08:26→18:02)
[2017-04-03] MEDS: Multivitamin w/Minerals tab ORAL SCH (08:26)
[2017-04-03] MEDS: Metoprolol 25mg tab GT SCH (08:28)
--- NOTE | 2017-04-03 08:28 | General Progress Note ---
Assessment/Plan Problem List: (1) Fever ICD Codes: R50.9 - Fever, unspecified SNOMED: 002838100 (2) Respiratory failure ICD Codes: J96.90 - Respiratory failure SNOMED: 790751344 (3) Sepsis ICD Codes: A41.9 - Sepsis, unspecified organism SNOMED: 99860617 (4) Pneumonia ICD Codes: J18.9 - Pneumonia, unspecified organism SNOMED: 864974614 Qualifiers: Qualified Codes: J18.1 - Lobar pneumonia, unspecified organism (5) Lactic acid acidosis ICD Codes: E87.2 - Acidosis SNOMED: 14337254 Status: stable Assessment/Plan follow up cultures- multiple positive cultures monitor fevers hypotonic fluids ordered repeat labs tomorrow abx per ID monitor cxr- improving vent/resp rx gt feeds skin care sz rx monitor bs poor prognosis Subjective ROS Limited/Unobtainable: Yes Constitutional: Reports: malaise, weakness HEENT: Reports: no symptoms Cardiovascular: Reports: no symptoms Respiratory: Reports: no symptoms Gastrointestinal/Abdominal: Reports: difficulty swallowing Genitourinary: Reports: no symptoms Neurologic/Psychiatric: Reports: pre-existing deficit, seizure Endocrine: Reports: no symptoms Hematologic/Lymphatic: Reports: anemia Allergies: Coded Allergies: HEPARIN (Unverified Allergy, Unknown, 03/28/17) HEPARIN (PORCINE) (Verified Allergy, Unknown, 03/31/10) HEPARIN ANALOGUES (Unverified Allergy, Unknown, UNK, 12/18/12) All Systems: reviewed and negative except above Subjective remains intermittently congested. overall less suctioning needed. no szs. no bleeding. tolerating feeds. elevated sodium noted. +fever this am Objective Last 24 Hour Vital Signs Date Time Temp Pulse Resp B/P Pulse Ox O2 Delivery O2 Flow Rate FiO2 04/03/17 08:00 100.2 104 22 141/102 100 Mechanical Ventilator 30 04/03/17 07:00 103 18 30 04/03/17 04:50 111 18 30 04/03/17 04:00 114 04/03/17 04:00 98.1 110 20 136/84 100 Mechanical Ventilator 30 04/03/17 04:00 30 04/03/17 02:47 111 21 30 04/03/17 01:02 106 21 30 04/03/17 00:00 30 04/03/17 00:00 104 04/03/17 00:00 98.0 104 18 132/87 100 Mechanical Ventilator 30 04/02/17 23:18 111 22 30 04/02/17 21:01 114 26 30 04/02/17 20:00 99 04/02/17 20:00 30 04/02/17 20:00 98.2 110 18 116/91 100 Mechanical Ventilator 30 04/02/17 19:08 99 21 30 04/02/17 16:45 109 20 30 04/02/17 16:00 98.4 99 20 138/95 100 Mechanical Ventilator 30 04/02/17 16:00 90 04/02/17 15:56 30 04/02/17 14:54 91 18 30 04/02/17 12:55 94 18 30 04/02/17 12:00 98.7 86 18 134/83 97 Mechanical Ventilator 30 04/02/17 12:00 30 04/02/17 12:00 86 04/02/17 10:52 90 18 30 04/02/17 09:19 96 19 30 04/02/17 08:50 93 137/73 04/02/17 08:50 137/73 Intake and Output 04/02/17 04/03/17 19:00 07:00 Intake Total 803 ml 950 ml Output Total 400 ml 750 ml Balance 403 ml 200 ml Intake Free Water 150 ml 300 ml IV Total 113 ml 110 ml Tube Feeding 540 ml 540 ml Output Urine Total 400 ml 750 ml # Bowel Movements 3 1 Laboratory Tests 04/03/17 03:45: White Blood Count 16.6H, Red Blood Count 3.52L, Hemoglobin 9.4L, Hematocrit 30.3L, Mean Corpuscular Volume 86, Mean Corpuscular Hemoglobin 26.8L, Mean Corpuscular Hemoglobin Concent 31.1L, Red Cell Distribution Width 15.3H, Platelet Count 208, Mean Platelet Volume 11.8H, Neutrophils (%) (Auto) 61.2, Lymphocytes (%) (Auto) 22.7, Monocytes (%) (Auto) 11.4H, Eosinophils (%) (Auto) 2.7, Basophils (%) (Auto) 1.9, Sodium Level 152H, Potassium Level 3.8, Chloride Level 109H, Carbon Dioxide Level 28, Anion Gap 15, Blood Urea Nitrogen 16, Creatinine 0.6, Estimat Glomerular Filtration Rate > 60, Glucose Level 179H, Calcium Level 9.0, Total Bilirubin < 0.2, Aspartate Amino Transf (AST/SGOT) 9, Alanine Aminotransferase (ALT/SGPT) 5, Alkaline Phosphatase 71, Total Protein 8.2, Albumin 2.8L, Globulin 5.4, Albumin/Globulin Ratio 0.5L Height (Feet): 5 Height (Inches): 3.00 Weight (Pounds): 143 Objective General Appearance: WD/WN, lethargic, confused, cachetic Neck: supple Cardiovascular: tachycardia Respiratory/Chest: rhonchi - bilaterally Abdomen: normal bowel sounds, non tender, soft, no organomegaly Edema: no edema noted Arm (L), no edema noted Arm (R), no edema noted Leg (L), no edema noted Leg (R), no edema noted Pedal (L), no edema noted Pedal (R), no edema noted Generalized Neurologic: disoriented, unresponsive, aphasia ALBER JUDGE Apr 03, 2017 08:28
[2017-04-03] MEDS: Benazepril 10mg tab GT SCH (08:29)
[2017-04-03] MEDS: Fluconazole 100mg tab ORAL SCH (08:38)
[2017-04-03] MEDS: Cefepime HCl 1 GM in D5W 55 ML IVPB SCH ×2 (08:38→21:53)
--- NOTE | 2017-04-03 08:52 | Pulmonology Progress Note ---
Assessment/Plan Assessment/Plan IMPRESSION: 1. Respiratory failure. 2. Evidence of pneumonia, possible parapneumonic effusion, possible sepsis. 3. Evidence of leukocytosis. 4. Evidence of hypernatremia, possibly mildly prerenal. 5. History of tracheostomy, G-tube. 6. History of chronic encephalopathy. 7. History of diabetes. 8. Hypertension. 9. sinus tachycardia 10. fevers 11 hypernatremia PLAN exam same hypotonic fluids ID noted antibiotics respiratory care ventilator as is; no wean oxygen therapy snf meds monitor for change monitor vital signs monitor sodium levels and WBC- worse stabilize further dc soon once improved will discuss with other MDs impression, plan, and exam edited and reviewed in detail care discussed with RN Subjective ROS Limited/Unobtainable: Yes Allergies: Coded Allergies: HEPARIN (Unverified Allergy, Unknown, 03/28/17) HEPARIN (PORCINE) (Verified Allergy, Unknown, 03/31/10) HEPARIN ANALOGUES (Unverified Allergy, Unknown, UNK, 12/18/12) Subjective withdrawn poor LOC care noted and reviewed findings discussed Objective Last 24 Hour Vital Signs Date Time Temp Pulse Resp B/P Pulse Ox O2 Delivery O2 Flow Rate FiO2 04/03/17 08:33 102 18 30 04/03/17 08:29 141/102 04/03/17 08:28 104 141/102 04/03/17 08:00 100.2 104 22 141/102 100 Mechanical Ventilator 30 04/03/17 07:00 103 18 30 04/03/17 04:50 111 18 30 04/03/17 04:00 114 04/03/17 04:00 98.1 110 20 136/84 100 Mechanical Ventilator 30 04/03/17 04:00 30 04/03/17 02:47 111 21 30 04/03/17 01:02 106 21 30 04/03/17 00:00 30 04/03/17 00:00 104 04/03/17 00:00 98.0 104 18 132/87 100 Mechanical Ventilator 30 04/02/17 23:18 111 22 30 04/02/17 21:01 114 26 30 04/02/17 20:00 99 04/02/17 20:00 30 04/02/17 20:00 98.2 110 18 116/91 100 Mechanical Ventilator 30 04/02/17 19:08 99 21 30 04/02/17 16:45 109 20 30 04/02/17 16:00 98.4 99 20 138/95 100 Mechanical Ventilator 30 04/02/17 16:00 90 04/02/17 15:56 30 04/02/17 14:54 91 18 30 04/02/17 12:55 94 18 30 04/02/17 12:00 98.7 86 18 134/83 97 Mechanical Ventilator 30 04/02/17 12:00 30 04/02/17 12:00 86 04/02/17 10:52 90 18 30 04/02/17 09:19 96 19 30 Intake and Output 04/02/17 04/03/17 19:00 07:00 Intake Total 803 ml 950 ml Output Total 400 ml 750 ml Balance 403 ml 200 ml Intake Free Water 150 ml 300 ml IV Total 113 ml 110 ml Tube Feeding 540 ml 540 ml Output Urine Total 400 ml 750 ml # Bowel Movements 3 1 Objective GENERAL: The patient is a well-developed female, withdrawn, poorly responsive. HEENT: Negative except both pupils are sluggish. Tracheostomy is midline. Carotids are 2+. LUNGS: Coarse breath sounds. Moderate air entry. no wheeze or rhonchi CARDIAC: S1 and S2. Regular rhythm. Positive S4. No murmurs or rubs. mildly tachycardic ABDOMEN: Soft, nontender, and nondistended. G-tube in place.no HSM EXTREMITIES: No cyanosis or clubbing. There is no edema. Degenerative joint disease. Contractures noted. reduced skin turgor mild NEUROLOGIC: Poorly responsive. Nonverbal. Laboratory Tests 04/03/17 03:45: White Blood Count 16.6H, Red Blood Count 3.52L, Hemoglobin 9.4L, Hematocrit 30.3L, Mean Corpuscular Volume 86, Mean Corpuscular Hemoglobin 26.8L, Mean Corpuscular Hemoglobin Concent 31.1L, Red Cell Distribution Width 15.3H, Platelet Count 208, Mean Platelet Volume 11.8H, Neutrophils (%) (Auto) 61.2, Lymphocytes (%) (Auto) 22.7, Monocytes (%) (Auto) 11.4H, Eosinophils (%) (Auto) 2.7, Basophils (%) (Auto) 1.9, Sodium Level 152H, Potassium Level 3.8, Chloride Level 109H, Carbon Dioxide Level 28, Anion Gap 15, Blood Urea Nitrogen 16, Creatinine 0.6, Estimat Glomerular Filtration Rate > 60, Glucose Level 179H, Calcium Level 9.0, Total Bilirubin < 0.2, Aspartate Amino Transf (AST/SGOT) 9, Alanine Aminotransferase (ALT/SGPT) 5, Alkaline Phosphatase 71, Total Protein 8.2, Albumin 2.8L, Globulin 5.4, Albumin/Globulin Ratio 0.5L Current Medications Medications (Trade) Dose Ordered Sig/Robert Route PRN Reason Start Time Stop Time Status Last Admin Dose Admin Acetaminophen (Tylenol) 650 mg Q4H PRN GT Headache/Temp > 101 03/28/17 19:30 04/27/17 19:29 04/03/17 08:24 Acetaminophen/ Hydrocodone Bitart (Jackson 5/325) 1 tab QIDPRN PRN GT Moderate Pain (Pain Scale 4-6) 03/28/17 19:30 04/04/17 19:29 03/29/17 22:59 Amikacin Protocol 1 ea 1 ea DAILY PRN MISC Per rx protocol 04/01/17 11:00 05/01/17 10:59 Amikacin Sulfate/ Sodium Chloride (Amikin/Sodium Chloride) 113 ml @ 113 mls/hr Q24H IV 04/01/17 14:00 04/08/17 13:59 04/02/17 15:14 Aspirin (ASA) 81 mg DAILY NG 04/02/17 09:00 05/02/17 08:59 04/03/17 08:26 Benazepril HCl (Lotensin) 10 mg DAILY GT 03/29/17 09:00 04/28/17 08:59 04/03/17 08:29 Bisacodyl (Dulcolax) 10 mg DAILY PRN RECTAL Constipation 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 03/28/17 19:30 04/27/17 19:29 Cefepime HCl/ Dextrose (Maxipime/D5W) 55 ml @ 110 mls/hr EVERY 12 HOURS IVPB 04/01/17 13:00 04/08/17 12:59 04/03/17 08:38 Dextrose (D5W 1000ml) 1,000 ml @ 75 mls/hr [id number] IV 04/03/17 09:00 05/03/17 08:59 04/03/17 08:38 Docusate Sodium 250 mg 250 mg BID ORAL 04/02/17 09:00 05/02/17 08:59 04/02/17 08:50 Epoetin Ilia (Procrit (for non ESRD use)) 7,000 units FRI-FRI-FRI SUBQ 03/31/17 21:00 04/30/17 20:59 04/02/17 20:18 Fluconazole 100 mg 100 mg DAILY ORAL 03/31/17 12:00 04/07/17 11:59 04/03/17 08:38 Lansoprazole (Prevacid) 30 mg DAILY GT 03/29/17 09:00 04/28/17 08:59 04/03/17 08:26 Magnesium Hydroxide (Mom) 30 ml DAILY PRN GT Constipation FIRST LINE AGENT 03/28/17 19:30 04/27/17 19:29 Metformin HCl (Glucophage) 500 mg BID GT 03/29/17 09:00 04/28/17 08:59 04/03/17 08:26 Metoprolol Tartrate (Lopressor) 12.5 mg DAILY GT 03/29/17 09:00 04/28/17 08:59 04/03/17 08:28 Multivitamins Therapeutic (Therapeutic Multivitamin) 1 ea DAILY ORAL 03/29/17 09:00 04/28/17 08:59 04/03/17 08:26 Ondansetron HCl (Zofran) 4 mg Q6H PRN GT Nausea & Vomiting 03/28/17 19:30 04/27/17 19:29 Sodium Phosphate (Fleet's Sodium Phosl Enema) 133 ml DAILYPRN PRN RECTAL CONSTIPATION THIRD LINE AGENT 03/28/17 19:30 04/27/17 19:29 Valproic Acid (Depakene) 750 mg EVERY 12 HOURS NG 03/28/17 21:00 04/27/17 20:59 04/03/17 08:25 Zinc Sulfate (Zinc Sulfate) 220 mg DAILY GT 03/29/17 09:00 04/28/17 08:59 04/03/17 08:25 HAFSA PRESTON Apr 03, 2017 08:52
--- NOTE | 2017-04-03 10:51 | Infectious Diseases Prog Note ---
Assessment/Plan Assessment/Plan antibiotics : cefepime, amikacin, fluconazole A 1. pseudomonas pneumonia 2. fungal UTI 3. + blood cultures with coag neg staph likely contaminated 4. respiratory failure 5. leucocytosis P 1. continue cefepime 2. d/c amikacin 3. start inhaled amikacin 4. continue fluconazole 3 more days 5. will follow up cultures Subjective ROS Limited/Unobtainable: Yes Allergies: Coded Allergies: HEPARIN (Unverified Allergy, Unknown, 03/28/17) HEPARIN (PORCINE) (Verified Allergy, Unknown, 03/31/10) HEPARIN ANALOGUES (Unverified Allergy, Unknown, UNK, 12/18/12) Objective Vital Signs Last 24 Hour Vital Signs Date Time Temp Pulse Resp B/P Pulse Ox O2 Delivery O2 Flow Rate FiO2 04/03/17 10:40 89 18 30 04/03/17 09:00 99.3 04/03/17 08:33 102 18 30 04/03/17 08:29 141/102 04/03/17 08:28 104 141/102 04/03/17 08:00 30 04/03/17 08:00 100.2 104 22 141/102 100 Mechanical Ventilator 30 04/03/17 08:00 106 04/03/17 07:00 103 18 30 04/03/17 04:50 111 18 30 04/03/17 04:00 114 04/03/17 04:00 98.1 110 20 136/84 100 Mechanical Ventilator 30 04/03/17 04:00 30 04/03/17 02:47 111 21 30 04/03/17 01:02 106 21 30 04/03/17 00:00 30 04/03/17 00:00 104 04/03/17 00:00 98.0 104 18 132/87 100 Mechanical Ventilator 30 04/02/17 23:18 111 22 30 04/02/17 21:01 114 26 30 04/02/17 20:00 99 04/02/17 20:00 30 04/02/17 20:00 98.2 110 18 116/91 100 Mechanical Ventilator 30 04/02/17 19:08 99 21 30 04/02/17 16:45 109 20 30 04/02/17 16:00 98.4 99 20 138/95 100 Mechanical Ventilator 30 04/02/17 16:00 90 04/02/17 15:56 30 04/02/17 14:54 91 18 30 04/02/17 12:55 94 18 30 04/02/17 12:00 98.7 86 18 134/83 97 Mechanical Ventilator 30 04/02/17 12:00 30 04/02/17 12:00 86 04/02/17 10:52 90 18 30 Height (Feet): 5 Height (Inches): 3.00 Weight (Pounds): 143 HEENT: status post trach Respiratory/Chest: lungs clear Cardiovascular: normal rate, regular rhythm, no gallop/murmur Abdomen: soft, non tender, other - GT Extremities: no edema Laboratory Tests Test 04/03/17 03:45 White Blood Count 16.6 K/UL (4.8-10.8) H Red Blood Count 3.52 M/UL (4.20-5.40) L Hemoglobin 9.4 G/DL (12.0-16.0) L Hematocrit 30.3 % (37.0-47.0) L Mean Corpuscular Volume 86 FL (80-99) Mean Corpuscular Hemoglobin 26.8 PG (27.0-31.0) L Mean Corpuscular Hemoglobin Concent 31.1 G/DL (32.0-36.0) L Red Cell Distribution Width 15.3 % (11.6-14.8) H Platelet Count 208 K/UL (150-450) Mean Platelet Volume 11.8 FL (6.5-10.1) H Neutrophils (%) (Auto) 61.2 % (45.0-75.0) Lymphocytes (%) (Auto) 22.7 % (20.0-45.0) Monocytes (%) (Auto) 11.4 % (1.0-10.0) H Eosinophils (%) (Auto) 2.7 % (0.0-3.0) Basophils (%) (Auto) 1.9 % (0.0-2.0) Sodium Level 152 mEQ/L (135-145) H Potassium Level 3.8 mEQ/L (3.4-4.9) Chloride Level 109 mEQ/L (98-107) H Carbon Dioxide Level 28 mEQ/L (20-30) Anion Gap 15 (5-15) Blood Urea Nitrogen 16 mg/dL (7-23) Creatinine 0.6 mg/dL (0.5-0.9) Estimat Glomerular Filtration Rate > 60 mL/min (>60) Glucose Level 179 mg/dL (74-106) H Calcium Level 9.0 mg/dL (8.6-10.2) Total Bilirubin < 0.2 mg/dL (0.0-1.2) Aspartate Amino Transf (AST/SGOT) 9 U/L (5-40) Alanine Aminotransferase (ALT/SGPT) 5 U/L (3-33) Alkaline Phosphatase 71 U/L (35-104) Total Protein 8.2 g/dL (6.6-8.7) Albumin 2.8 g/dL (3.5-5.2) L Globulin 5.4 g/dL Albumin/Globulin Ratio 0.5 (1.0-2.7) L LAI WATSON Apr 03, 2017 10:51
[2017-04-03 12:00] VITALS: BP 117/71
[2017-04-03 16:00] VITALS: BP 125/75
[2017-04-03 19:42] VITALS: BP 152/82
[2017-04-03] MEDS: Amikacin for Inhalation 2ML INH SCH (23:33)
[2017-04-04] VITALS: BP 133/79
--- NOTE | 2017-04-04 00:15 | Progress Note ---
DATE: 04/03/2017 CARDIOLOGY PROGRESS NOTE SUBJECTIVE: The patient had fever this morning. Abnormal laboratories yesterday resulted in IV fluid adjustment. She remains congested. OBJECTIVE: VITAL SIGNS: Blood pressure 141/102, pulse 104, respirations 22, and temperature 100.2 degrees. LUNGS: Moderate rhonchi. NECK: Thin trach secretions. HEART: Regular rhythm. Rapid rate. Normal S1 and S2. ABDOMEN: Soft. EXTREMITIES: Trace dependent edema. LABORATORY DATA: White count 16.6 and hemoglobin 9.4. Sodium 152, potassium 3.8, bicarbonate 28, BUN 16 and creatinine 0.6. Albumin is 2.8. IMPRESSION: 1. Respiratory failure. 2. Encephalopathy. 3. Hypernatremic. 4. Dehydration. 5. Moderate protein-calorie malnutrition. 6. Chronic diastolic congestive heart failure. 7. Dysphagia with gastrostomy tube. 8. Parapneumonic effusion. 9. Secondary sinus tachycardia. PLAN: 1. Antipyretics. 2. Hypotonic IV fluids. 3. Empiric antibiotics. 4. Await new cultures. 5. Ventilator support. 6. Limit use of beta-agonist. 7. Ventilator settings per plant guide. 8. Insulin coverage by sliding scale. 9. No role for diuresis at this time. Benedict Gayle M.D. DR: LYNDSAY JOB#: [id number] CC:
--- NOTE | 2017-04-04 00:30 | Progress Note ---
DATE: 03/29/2017 LATE ENTRY CARDIOLOGY PROGRESS NOTE: SUBJECTIVE: The patient remains congested. Moderate secretions from tracheostomy. She is defervesced. OBJECTIVE: VITAL SIGNS: Blood pressure is 110/61, pulse rate 105, respiratory rate 24, and temperature 99.6 degrees. CHEST: Bilateral breath sounds. Scattered rhonchi. HEART: Regular rhythm. Rapid rate. Normal S1 and S2. ABDOMEN: Soft. G-tube intact. EXTREMITIES: No edema. NEUROLOGICAL: Noncommunicative and withdrawn. LABORATORY DATA: Sodium is 146, potassium 3.2, bicarbonate 27, BUN 12, and creatinine 0.6. Albumin is 2.6. White count is 12.7 and hemoglobin 9. IMPRESSION: 1. Respiratory failure. 2. Sepsis. 3. Dehydration. 4. Hypernatremia. 5. Hypovolemia. 6. Anemia. 7. Secondary sinus tachycardia. 8. Lactic acidosis. 9. Hypokalemia. 10. Moderate protein-calorie malnutrition. 11. Chronic encephalopathy. PLAN: 1. Hypotonic IV fluids. 2. Potassium replacement. 3. Follow up cultures. 4. Broad-spectrum antibiotics. 5. Protein supplement by gastrostomy tube. 6. Deep venous thrombosis and stress ulcer prophylaxis. 7. Respiratory hygiene. 8. Bronchodilators. 9. Prognosis poor. 10. Condition serious. Benedict Gayle M.D. DR: Court JOB#: [id number] CC:
--- NOTE | 2017-04-04 00:30 | Progress Note ---
DATE: 03/30/2017 LATE ENTRY CARDIOLOGY PROGRESS NOTE: SUBJECTIVE: The patient continues to have moderate secretions. Blood cultures are positive. Antibiotics have been adjusted by Infectious Disease rn lactation consultant. She required aggressive trach care. OBJECTIVE: VITAL SIGNS: Temperature is 100.0 degrees, blood pressure 119/65, heart rate 102, and respiratory rate 19. CHEST: Moderate breath sounds. Scattered rhonchi. HEART: Regular rhythm. Rapid rate. Normal S1 and S2. ABDOMEN: Soft. EXTREMITIES: Trace edema. LABORATORY DATA: Sodium is 147, potassium 3.8, bicarbonate 27, BUN 11, and creatinine 0.6. White count is 13.5, hemoglobin 9.5, and platelets 173,000. IMPRESSION: 1. Sepsis. 2. Bacteremia. 3. Respiratory failure. 4. Tracheostomy. 5. Dehydration. 6. Hypernatremia. 7. Hypovolemia. 8. Acute on chronic kidney injury. 9. Anemia. 10. Toxic and metabolic encephalopathy. 11. Chronic encephalopathy due to cerebrovascular disease. 12. Increased risk for endocarditis. 13. Moderate protein-calorie malnutrition. 14. Secondary sinus tachycardia PLAN: 1. Antibiotics, per Infectious Disease rn lactation consultant. 2. Await final blood culture results. 3. Limit use of albuterol. 4. Respiratory hygiene. 5. Bronchodilators with caution. 6. Hypotonic IV fluids. 7. Replace potassium. 8. Protein supplement by gastrostomy tube. Benedict Gayle M.D. DR: Court JOB#: [id number] CC:
--- NOTE | 2017-04-04 00:45 | Progress Note ---
DATE: 03/31/2017 LATE ENTRY CARDIOLOGY PROGRESS NOTE: SUBJECTIVE: The patient has positive blood cultures. Consideration for endocarditis is in progress. The patient remains with moderate secretions, requiring suctioning from trach. OBJECTIVE: VITAL SIGNS: Blood pressure is 147/69, pulse rate 96, and respiratory rate 18. LUNGS: Coarse breath sounds. Scattered rhonchi. HEART: Regular rhythm. Rapid rate. Normal S1 and S2. ABDOMEN: Soft. G-tube is intact. EXTREMITIES: Trace edema. NEUROLOGICAL: Contractures. Unresponsive. LABORATORY DATA: No new laboratories. IMPRESSION: 1. Possible coagulase negative Staph bacteremia. 2. Sepsis. 3. Healthcare-acquired pneumonia. 4. Respiratory failure with tracheostomy. 5. Secondary sinus tachycardia. 6. Severe encephalopathy. 7. Chronic diastolic congestive heart failure. 8. Hypertensive heart disease. 9. Fungal cystitis. PLAN: 1. Antimicrobials, per Infectious Disease financial reporting consultant, re-cultured blood, if positive, consider transesophageal echocardiogram. 2. Hypotonic IV fluids. 3. Nutritional support by feeding tube. 4. Deep venous thrombosis and stress ulcer prophylaxis. 5. Monitor volume status and cardiorenal parameters. Benedict Gayle M.D. DR: Court JOB#: [id number] CC:
--- NOTE | 2017-04-04 01:30 | Consultation ---
DATE OF CONSULTATION: 03/28/2017 CARDIOLOGY CONSULTATION CONSULTING PHYSICIAN: Benedict Gayle M.D. REQUESTING PHYSICIAN: Leighton Zhou M.D. REASON FOR CONSULTATION: Elevated natriuretic peptide assay in the setting of sepsis with lactic acidosis. HISTORY OF PRESENT ILLNESS: This 72-year-old female with tracheostomy and respiratory failure was transferred to the emergency room because of increasing secretions. The patient was also febrile. She was started on antibiotics on the day prior to admission, but did not improve. I have been asked to assist with further cardiovascular care based on her abnormal laboratory studies and clinical parameters. PAST MEDICAL HISTORY: 1. Tracheostomy . 2. Respiratory failure. 3. Hypertension. 4. Diabetes mellitus type 2. 5. Cerebrovascular disease with dementia. 6. Dysphagia with G-tube. 7. Chronic anemia. 8. History of decubiti. ALLERGIES: Include heparin. SOCIAL HISTORY: No record of smoking or alcohol use. MEDICATIONS: Reviewed and reconciled from the nursing facility. REVIEW OF SYSTEMS: Not obtainable from patient. Review of records is performed from prior hospitalizations here and this current [facility] facility as outlined above. PHYSICAL EXAMINATION: VITAL SIGNS: Afebrile. Blood pressure 152/78, pulse 107, respiratory rate 22, oxygen saturation 99% on ventilator support. HEENT: Temporal wasting. No eye contact. Trach with thick secretions of moderate quantity. LUNGS: Coarse breath sounds and rhonchi. CARDIAC: Regular rhythm. Rapid rate. Normal S1 and S2 with a fourth heart sound. ABDOMEN: Soft. G-tube intact. EXTREMITIES: No edema. LABORATORY AND DIAGNOSTIC DATA: Chest x-ray is reviewed and notable for right perihilar infiltrate and left pleural effusion. EKG sinus tachycardia with nonspecific ST change. Urinalysis with too numerous to count white cells. Pro-natriuretic peptide is 380. Albumin 2.7. Lactic acid 2.9. Sodium is 137, potassium 4.8, bicarb 30, BUN 20, creatinine 0.6. White blood count 13.9 with a left shift and hemoglobin is 10. IMPRESSION: 1. Healthcare-acquired pneumonia, tracheostomy with respiratory failure. 2. Cerebrovascular disease with encephalopathy. 3. Chronic diastolic congestive heart failure. 4. Hypovolemia and mild dehydration. 5. Urinary tract infection. 6. Lactic acidosis. 7. Severe sepsis. PLAN: 1. Cardiac monitoring. 2. Panculture. 3. Respiratory hygiene and ventilator support. 4. Broad-spectrum antibiotics. 5. No heparin in view of allergy. 6. SCDs and stress ulcer prophylaxis. 7. Cautious hydration. 8. Limit use of beta-agonist. 9. Follow up culture results and adjust therapy accordingly. No role for diuretics or antiarrhythmics at this time. Benedict Gayle M.D. DR: Herson JOB#: [id number] CC:
[2017-04-04 03:50] VITALS: BP 118/71
[2017-04-04 05:18] LABS: ALANINE AMINOTRANSFERASE 5 U/L (3-33); ALBUMIN/GLOBULIN RATIO 0.4 (1.0-2.7); ANION GAP 15 (5-15); ASPARTATE AMINO TRANSFERASE 10 U/L (5-40); CALCIUM 8.6 mg/dL (8.6-10.2); CARBON DIOXIDE 27 mEQ/L (20-30); CHLORIDE 102 mEQ/L (98-107); CREATININE 0.5 mg/dL (0.5-0.9); GLOMERULAR FILTRATION RATE > 60 mL/min (>60); HEMOLYSIS 11; POTASSIUM 3.3 mEQ/L (3.4-4.9); SODIUM 144 mEQ/L (135-145); TOTAL PROTEIN 7.2 g/dL (6.6-8.7)
--- NOTE | 2017-04-04 06:34 | General Progress Note ---
Assessment/Plan Problem List: (1) Fever ICD Codes: R50.9 - Fever, unspecified SNOMED: 881298656 (2) Respiratory failure ICD Codes: J96.90 - Respiratory failure SNOMED: 355257394 (3) Sepsis ICD Codes: A41.9 - Sepsis, unspecified organism SNOMED: 05736233 (4) Pneumonia ICD Codes: J18.9 - Pneumonia, unspecified organism SNOMED: 849557276 Qualifiers: Qualified Codes: J18.1 - Lobar pneumonia, unspecified organism (5) Lactic acid acidosis ICD Codes: E87.2 - Acidosis SNOMED: 15153070 Status: stable, progressing Assessment/Plan ivf replace k repeat cbc- monitor wbc vent support resp rx gt feeds skin care dc planning if ok with all and wbc better Subjective ROS Limited/Unobtainable: Yes Constitutional: Reports: malaise, weakness HEENT: Reports: no symptoms Cardiovascular: Reports: no symptoms Respiratory: Reports: cough, shortness of breath, sputum Gastrointestinal/Abdominal: Reports: difficulty swallowing Genitourinary: Reports: no symptoms Neurologic/Psychiatric: Reports: pre-existing deficit, seizure Endocrine: Reports: no symptoms Hematologic/Lymphatic: Reports: no symptoms Allergies: Coded Allergies: HEPARIN (Unverified Allergy, Unknown, 03/28/17) HEPARIN (PORCINE) (Verified Allergy, Unknown, 03/31/10) HEPARIN ANALOGUES (Unverified Allergy, Unknown, UNK, 12/18/12) All Systems: reviewed and negative except above Subjective remains intermittently congested. overall less suctioning needed. no szs. no bleeding. tolerating feeds. low k. cbc still pending. ID noted. Objective Last 24 Hour Vital Signs Date Time Temp Pulse Resp B/P Pulse Ox O2 Delivery O2 Flow Rate FiO2 04/04/17 05:30 91 18 30 04/04/17 04:00 30 04/04/17 04:00 87 04/04/17 03:50 98.1 89 18 118/71 99 Mechanical Ventilator 04/04/17 02:45 89 18 30 04/04/17 01:30 100 19 30 04/04/17 00:00 30 04/04/17 00:00 94 04/04/17 00:00 98.4 92 18 133/79 100 Mechanical Ventilator 04/03/17 23:36 93 18 100 Mechanical Ventilator 30 04/03/17 23:26 86 18 30 04/03/17 21:18 88 18 30 04/03/17 20:00 30 04/03/17 20:00 90 04/03/17 19:42 98.6 98 17 152/82 100 04/03/17 19:16 88 18 30 04/03/17 17:21 84 18 30 04/03/17 16:00 98.1 97 20 125/75 100 Mechanical Ventilator 30 04/03/17 16:00 30 04/03/17 16:00 90 04/03/17 14:39 88 18 30 04/03/17 12:23 86 18 30 04/03/17 12:00 30 04/03/17 12:00 98.9 88 18 117/71 99 Mechanical Ventilator 30 04/03/17 12:00 87 04/03/17 10:40 89 18 30 04/03/17 09:00 99.3 04/03/17 08:33 102 18 30 04/03/17 08:29 141/102 04/03/17 08:28 104 141/102 04/03/17 08:00 30 04/03/17 08:00 100.2 104 22 141/102 100 Mechanical Ventilator 30 04/03/17 08:00 106 04/03/17 07:00 103 18 30 Intake and Output 04/03/17 04/04/17 19:00 07:00 Intake Total 1675 ml 1092.5 ml Output Total 675 ml Balance 1000 ml 1092.5 ml Intake Free Water 300 ml 100 ml IV Total 805 ml 812.5 ml Tube Feeding 540 ml 180 ml Other 30 ml Output Urine Total 675 ml Laboratory Tests 04/04/17 03:20: Sodium Level 144, Potassium Level 3.3L, Chloride Level 102, Carbon Dioxide Level 27, Anion Gap 15, Blood Urea Nitrogen 12, Creatinine 0.5, Estimat Glomerular Filtration Rate > 60, Glucose Level 173H, Calcium Level 8.6, Total Bilirubin < 0.2, Aspartate Amino Transf (AST/SGOT) 10, Alanine Aminotransferase (ALT/SGPT) 5, Alkaline Phosphatase 59, Total Protein 7.2, Albumin 2.3L, Globulin 4.9, Albumin/Globulin Ratio 0.4L Height (Feet): 5 Height (Inches): 3.00 Weight (Pounds): 143 Objective General Appearance: WD/WN, lethargic, confused, cachetic Neck: supple Cardiovascular: tachycardia Respiratory/Chest: rhonchi - bilaterally Abdomen: normal bowel sounds, non tender, soft, no organomegaly Edema: no edema noted Arm (L), no edema noted Arm (R), no edema noted Leg (L), no edema noted Leg (R), no edema noted Pedal (L), no edema noted Pedal (R), no edema noted Generalized Neurologic: disoriented, unresponsive, aphasia ALBER JUDGE Apr 04, 2017 06:34
[2017-04-04] MEDS ORDERED: KCl 10% 40mEq/30ml liquid NG ONE (06:45)
[2017-04-04 07:26] VITALS: BP 116/69
[2017-04-04 07:45] LABS: EOSINOPHILS % (AUTO) 4.5 % (0.0-3.0); LYMPHOCYTES % (AUTO) 34.7 % (20.0-45.0); MEAN CORPUSCULAR HEMOGLOBIN 27.6 PG (27.0-31.0); MEAN CORPUSCULAR HGB CONC 32.3 G/DL (32.0-36.0); MEAN CORPUSCULAR VOLUME 86 FL (80-99); MEAN PLATELET VOLUME 12.1 FL (6.5-10.1); MONOCYTES % (AUTO) 11.6 % (1.0-10.0); NEUTROPHILS % (AUTO) 48.2 % (45.0-75.0); PLATELET COUNT 165 K/UL (150-450); RED BLOOD COUNT 2.95 M/UL (4.20-5.40); RED CELL DISTRIBUTION WIDTH 15.5 % (11.6-14.8); WHITE BLOOD COUNT 12.9 K/UL (4.8-10.8)
[2017-04-04] MEDS: Zinc Sulfate 220mg cap GT SCH (08:10)
[2017-04-04] MEDS: Aspirin Baby 81mg NG SCH (08:10)
[2017-04-04] MEDS: Benazepril 10mg tab GT SCH (08:11)
[2017-04-04] MEDS: Multivitamin w/Minerals tab ORAL SCH (08:11)
[2017-04-04] MEDS: metFORMIN 500mg tab GT SCH ×2 (08:11→17:40)
[2017-04-04] MEDS: Cefepime HCl 1 GM in D5W 55 ML IVPB SCH (08:12)
[2017-04-04] MEDS: Metoprolol 25mg tab GT SCH (08:12)
[2017-04-04] MEDS: Fluconazole 100mg tab ORAL SCH (08:13)
[2017-04-04] MEDS: Docusate 100mg/10ml Liq ORAL SCH ×2 (08:24→17:37)
[2017-04-04] MEDS: Valproic Acid 250mg/5ml Liquid NG SCH (08:24)
--- NOTE | 2017-04-04 09:00 | Pulmonology Progress Note ---
Assessment/Plan Assessment/Plan IMPRESSION: 1. Respiratory failure. 2. Evidence of pneumonia, possible parapneumonic effusion, possible sepsis. 3. Evidence of leukocytosis. 4. Evidence of hypernatremia, possibly mildly prerenal. 5. History of tracheostomy, G-tube. 6. History of chronic encephalopathy. 7. History of diabetes. 8. Hypertension. 9. sinus tachycardia 10. fevers 11 hypernatremia PLAN exam same hypotonic fluids- dc ID noted antibiotics to complete after dc respiratory care ventilator as is; no wean oxygen therapy snf meds monitor for change monitor vital signs ok to dc per pulmonary impression, plan, and exam edited and reviewed in detail care discussed with RN Subjective ROS Limited/Unobtainable: Yes Allergies: Coded Allergies: HEPARIN (Unverified Allergy, Unknown, 03/28/17) HEPARIN (PORCINE) (Verified Allergy, Unknown, 03/31/10) HEPARIN ANALOGUES (Unverified Allergy, Unknown, UNK, 12/18/12) Subjective withdrawn poor LOC care noted and reviewed findings discussed labs improved Objective Last 24 Hour Vital Signs Date Time Temp Pulse Resp B/P Pulse Ox O2 Delivery O2 Flow Rate FiO2 04/04/17 08:12 85 116/69 04/04/17 08:11 116/69 04/04/17 07:26 98.8 85 18 116/69 99 Mechanical Ventilator 04/04/17 07:10 81 18 30 04/04/17 05:30 91 18 30 04/04/17 04:00 30 04/04/17 04:00 87 04/04/17 03:50 98.1 89 18 118/71 99 Mechanical Ventilator 04/04/17 02:45 89 18 30 04/04/17 01:30 100 19 30 04/04/17 00:00 30 04/04/17 00:00 94 04/04/17 00:00 98.4 92 18 133/79 100 Mechanical Ventilator 04/03/17 23:36 93 18 100 Mechanical Ventilator 30 04/03/17 23:26 86 18 30 04/03/17 21:18 88 18 30 04/03/17 20:00 30 04/03/17 20:00 90 04/03/17 19:42 98.6 98 17 152/82 100 04/03/17 19:16 88 18 30 04/03/17 17:21 84 18 30 04/03/17 16:00 98.1 97 20 125/75 100 Mechanical Ventilator 30 04/03/17 16:00 30 04/03/17 16:00 90 04/03/17 14:39 88 18 30 04/03/17 12:23 86 18 30 04/03/17 12:00 30 04/03/17 12:00 98.9 88 18 117/71 99 Mechanical Ventilator 30 04/03/17 12:00 87 04/03/17 10:40 89 18 30 04/03/17 09:00 99.3 Intake and Output 04/03/17 04/04/17 19:00 07:00 Intake Total 1675 ml 1682.5 ml Output Total 675 ml 400 ml Balance 1000 ml 1282.5 ml Intake Free Water 300 ml 300 ml IV Total 805 ml 887.5 ml Tube Feeding 540 ml 495 ml Other 30 ml Output Urine Total 675 ml 400 ml # Bowel Movements 1 Objective GENERAL: The patient is a well-developed female, withdrawn, poorly responsive. HEENT: Negative except both pupils are sluggish. Tracheostomy is midline. Carotids are 2+. LUNGS: Coarse breath sounds. Moderate air entry. no wheeze or rhonchi CARDIAC: S1 and S2. Regular rhythm. Positive S4. No murmurs or rubs. mildly tachycardic ABDOMEN: Soft, nontender, and nondistended. G-tube in place.no HSM EXTREMITIES: No cyanosis or clubbing. There is no edema. Degenerative joint disease. Contractures noted. reduced skin turgor mild NEUROLOGIC: Poorly responsive. Nonverbal. Laboratory Tests 04/04/17 03:20: White Blood Count 12.9H, Red Blood Count 2.95L, Hemoglobin 8.1L, Hematocrit 25.3L, Mean Corpuscular Volume 86, Mean Corpuscular Hemoglobin 27.6, Mean Corpuscular Hemoglobin Concent 32.3, Red Cell Distribution Width 15.5H, Platelet Count 165, Mean Platelet Volume 12.1H, Neutrophils (%) (Auto) 48.2, Lymphocytes (%) (Auto) 34.7, Monocytes (%) (Auto) 11.6H, Eosinophils (%) (Auto) 4.5H, Basophils (%) (Auto) 1.0, Sodium Level 144, Potassium Level 3.3L, Chloride Level 102, Carbon Dioxide Level 27, Anion Gap 15, Blood Urea Nitrogen 12, Creatinine 0.5, Estimat Glomerular Filtration Rate > 60, Glucose Level 173H , Calcium Level 8.6, Total Bilirubin < 0.2, Aspartate Amino Transf (AST/SGOT) 10 , Alanine Aminotransferase (ALT/SGPT) 5, Alkaline Phosphatase 59, Total Protein 7.2, Albumin 2.3L, Globulin 4.9, Albumin/Globulin Ratio 0.4L Current Medications Medications (Trade) Dose Ordered Sig/Robert Route PRN Reason Start Time Stop Time Status Last Admin Dose Admin Acetaminophen (Tylenol) 650 mg Q4H PRN GT Headache/Temp > 101 03/28/17 19:30 04/27/17 19:29 04/03/17 08:24 Acetaminophen/ Hydrocodone Bitart ([place] 5/325) 1 tab QIDPRN PRN GT Moderate Pain (Pain Scale 4-6) 03/28/17 19:30 04/04/17 19:29 03/29/17 22:59 Amikacin Sulfate (Amikin) 500 mg Q12HR@10,22 INH 04/03/17 22:00 04/10/17 21:59 04/03/17 23:33 Aspirin (ASA) 81 mg DAILY NG 04/02/17 09:00 05/02/17 08:59 04/04/17 08:10 Benazepril HCl (Lotensin) 10 mg DAILY GT 03/29/17 09:00 04/28/17 08:59 04/04/17 08:11 Bisacodyl (Dulcolax) 10 mg DAILY PRN RECTAL Constipation 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 03/28/17 19:30 04/27/17 19:29 Cefepime HCl/ Dextrose (Maxipime/D5W) 55 ml @ 110 mls/hr EVERY 12 HOURS IVPB 04/01/17 13:00 04/08/17 12:59 04/04/17 08:12 Dextrose (D5W 1000ml) 1,000 ml @ 75 mls/hr [id number] IV 04/03/17 09:00 05/03/17 08:59 04/03/17 21:54 Docusate Sodium 250 mg 250 mg BID ORAL 04/02/17 09:00 05/02/17 08:59 04/02/17 08:50 Epoetin Ilia (Procrit (for non ESRD use)) 7,000 units MON-FRI-FRI SUBQ 03/31/17 21:00 04/30/17 20:59 04/02/17 20:18 Fluconazole 100 mg 100 mg DAILY ORAL 03/31/17 12:00 04/07/17 11:59 04/04/17 08:13 Lansoprazole (Prevacid) 30 mg DAILY GT 03/29/17 09:00 04/28/17 08:59 04/04/17 08:10 Magnesium Hydroxide (Mom) 30 ml DAILY PRN GT Constipation FIRST LINE AGENT 03/28/17 19:30 04/27/17 19:29 Metformin HCl (Glucophage) 500 mg BID GT 03/29/17 09:00 04/28/17 08:59 04/04/17 08:11 Metoprolol Tartrate (Lopressor) 12.5 mg DAILY GT 03/29/17 09:00 04/28/17 08:59 04/04/17 08:12 Multivitamins Therapeutic (Therapeutic Multivitamin) 1 ea DAILY ORAL 03/29/17 09:00 04/28/17 08:59 04/04/17 08:11 Ondansetron HCl (Zofran) 4 mg Q6H PRN GT Nausea & Vomiting 03/28/17 19:30 04/27/17 19:29 Sodium Phosphate (Fleet's Sodium Phosl Enema) 133 ml DAILYPRN PRN RECTAL CONSTIPATION THIRD LINE AGENT 03/28/17 19:30 04/27/17 19:29 Valproic Acid (Depakene) 750 mg EVERY 12 HOURS NG 03/28/17 21:00 04/27/17 20:59 04/04/17 08:24 Zinc Sulfate (Zinc Sulfate) 220 mg DAILY GT 03/29/17 09:00 04/28/17 08:59 04/04/17 08:10 HAFSA PRESTON Apr 04, 2017 09:00
[2017-04-04] MEDS: Amikacin for Inhalation 2ML INH SCH (10:21)
[2017-04-04 11:19] VITALS: BP 147/87
--- NOTE | 2017-04-04 11:43 | Infectious Diseases Prog Note ---
Assessment/Plan Assessment/Plan antibiotics : cefepime, amikacin, fluconazole A 1. pseudomonas pneumonia 2. fungal UTI 3. + blood cultures with coag neg staph likely contaminated 4. respiratory failure 5. leucocytosis improving P 1. continue cefepime 3 more days 2. continue inhaled amikacin 3 more days 3. continue fluconazole 2 more days 4. will follow up cultures Subjective ROS Limited/Unobtainable: Yes Allergies: Coded Allergies: HEPARIN (Unverified Allergy, Unknown, 03/28/17) HEPARIN (PORCINE) (Verified Allergy, Unknown, 03/31/10) HEPARIN ANALOGUES (Unverified Allergy, Unknown, UNK, 12/18/12) Objective Vital Signs Last 24 Hour Vital Signs Date Time Temp Pulse Resp B/P Pulse Ox O2 Delivery O2 Flow Rate FiO2 04/04/17 11:19 98.3 93 18 147/87 100 Mechanical Ventilator 04/04/17 11:00 87 18 30 04/04/17 10:22 92 18 100 Mechanical Ventilator 30 04/04/17 10:20 92 18 100 Mechanical Ventilator 30 04/04/17 09:17 87 18 30 04/04/17 08:12 85 116/69 04/04/17 08:11 116/69 04/04/17 08:00 30 04/04/17 07:39 85 04/04/17 07:26 98.8 85 18 116/69 99 Mechanical Ventilator 04/04/17 07:10 81 18 30 04/04/17 05:30 91 18 30 04/04/17 04:00 30 04/04/17 04:00 87 04/04/17 03:50 98.1 89 18 118/71 99 Mechanical Ventilator 04/04/17 02:45 89 18 30 04/04/17 01:30 100 19 30 04/04/17 00:00 30 04/04/17 00:00 94 04/04/17 00:00 98.4 92 18 133/79 100 Mechanical Ventilator 04/03/17 23:36 93 18 100 Mechanical Ventilator 30 04/03/17 23:26 86 18 30 04/03/17 21:18 88 18 30 04/03/17 20:00 30 04/03/17 20:00 90 04/03/17 19:42 98.6 98 17 152/82 100 04/03/17 19:16 88 18 30 04/03/17 17:21 84 18 30 04/03/17 16:00 98.1 97 20 125/75 100 Mechanical Ventilator 30 04/03/17 16:00 30 04/03/17 16:00 90 04/03/17 14:39 88 18 30 04/03/17 12:23 86 18 30 04/03/17 12:00 30 04/03/17 12:00 98.9 88 18 117/71 99 Mechanical Ventilator 30 04/03/17 12:00 87 Height (Feet): 5 Height (Inches): 3.00 Weight (Pounds): 143 HEENT: status post trach Respiratory/Chest: lungs clear Cardiovascular: normal rate, regular rhythm, no gallop/murmur Abdomen: soft, non tender, other - GT Extremities: no edema Laboratory Tests Test 04/04/17 03:20 White Blood Count 12.9 K/UL (4.8-10.8) H Red Blood Count 2.95 M/UL (4.20-5.40) L Hemoglobin 8.1 G/DL (12.0-16.0) L Hematocrit 25.3 % (37.0-47.0) L Mean Corpuscular Volume 86 FL (80-99) Mean Corpuscular Hemoglobin 27.6 PG (27.0-31.0) Mean Corpuscular Hemoglobin Concent 32.3 G/DL (32.0-36.0) Red Cell Distribution Width 15.5 % (11.6-14.8) H Platelet Count 165 K/UL (150-450) Mean Platelet Volume 12.1 FL (6.5-10.1) H Neutrophils (%) (Auto) 48.2 % (45.0-75.0) Lymphocytes (%) (Auto) 34.7 % (20.0-45.0) Monocytes (%) (Auto) 11.6 % (1.0-10.0) H Eosinophils (%) (Auto) 4.5 % (0.0-3.0) H Basophils (%) (Auto) 1.0 % (0.0-2.0) Sodium Level 144 mEQ/L (135-145) Potassium Level 3.3 mEQ/L (3.4-4.9) L Chloride Level 102 mEQ/L (98-107) Carbon Dioxide Level 27 mEQ/L (20-30) Anion Gap 15 (5-15) Blood Urea Nitrogen 12 mg/dL (7-23) Creatinine 0.5 mg/dL (0.5-0.9) Estimat Glomerular Filtration Rate > 60 mL/min (>60) Glucose Level 173 mg/dL (74-106) H Calcium Level 8.6 mg/dL (8.6-10.2) Total Bilirubin < 0.2 mg/dL (0.0-1.2) Aspartate Amino Transf (AST/SGOT) 10 U/L (5-40) Alanine Aminotransferase (ALT/SGPT) 5 U/L (3-33) Alkaline Phosphatase 59 U/L (35-104) Total Protein 7.2 g/dL (6.6-8.7) Albumin 2.3 g/dL (3.5-5.2) L Globulin 4.9 g/dL Albumin/Globulin Ratio 0.4 (1.0-2.7) L LAI WATSON Apr 04, 2017 11:43
[2017-04-04 14:27] LABS: BASOPHILS % (AUTO) 0.9 % (0.0-2.0); EOSINOPHILS % (AUTO) 4.9 % (0.0-3.0); LYMPHOCYTES % (AUTO) 30.4 % (20.0-45.0); MEAN CORPUSCULAR HGB CONC 31.6 G/DL (32.0-36.0); MEAN CORPUSCULAR VOLUME 86 FL (80-99); MEAN PLATELET VOLUME 13.2 FL (6.5-10.1); MONOCYTES % (AUTO) 9.5 % (1.0-10.0); NEUTROPHILS % (AUTO) 54.3 % (45.0-75.0); PLATELET COUNT 195 K/UL (150-450); RED BLOOD COUNT 3.22 M/UL (4.20-5.40); RED CELL DISTRIBUTION WIDTH 14.7 % (11.6-14.8); WHITE BLOOD COUNT 12.7 K/UL (4.8-10.8)
[2017-04-04 15:37] VITALS: BP 132/77
[2017-04-04] MEDS: Acetaminophen 650mg/20.3ml GT PRN (16:15)
[2017-04-04] MEDS ORDERED: NS 275ml ONE (19:49)
[2017-04-04] MEDS ORDERED: Tubing IV Secondary IV ONE (19:49)
--- NOTE | 2017-04-05 | Progress Note ---
DATE: 04/04/2017 CARDIOLOGY PROGRESS NOTE SUBJECTIVE: The patient remains noncommunicative. She is on ventilator support. OBJECTIVE: VITAL SIGNS: Blood pressure 118/71, pulse 89, respirations 18, and afebrile. LUNGS: Bilateral breath sounds. Few rhonchi. HEART: Regular rhythm and rate. Normal S1 and S2. ABDOMEN: Soft. G-tube is intact. EXTREMITIES: No edema. LABORATORY DATA: White count 12.7 and hemoglobin 8.7. Sodium 144, potassium 3.3, bicarbonate 27, BUN 12, and creatinine 0.5. Albumin is 2.3. IMPRESSION: 1. Ventilator-dependent respiratory failure. 2. Acute and chronic diastolic congestive heart failure clinically compensated. 3. Severe protein-calorie malnutrition on gastrostomy tube feedings. 4. Hypokalemia nicely with replacement therapy ordered. 5. Dehydration and hypernatremia corrected. 6. Cerebrovascular disease with severe encephalopathy and dementia. PLAN: 1. Replace potassium. 2. Continue ventilator support. 3. Complete antibiotics at subacute facility. 4. No current role for diuresis. 5. Maintain adequate water replacement by G-tube. 6. Followup laboratory studies. Benedict Gayle M.D. DR: LYNDSAY JOB#: [id number] CC:
== END 2017-04-04 19:50 | DRG 870 ==
LOC: EDBD 15:52 → EMR 16:11 → 2W 16:40 → EDBEDREQ 17:14 → 2W 23:46
PROC: 5A1955Z Respiratory Ventilation, Greater than 96 Consecutive Hours (ICD-10-PCS; principal; 2017-03-28)
DX: A41.89 Other specified sepsis (principal); G92 Toxic encephalopathy; E43 Unspecified severe protein-calorie malnutrition; J18.9 Pneumonia, unspecified organism; J96.10 Chronic respiratory failure, unspecified whether with hypoxia or hypercapnia; I50.33 Acute on chronic diastolic (congestive) heart failure; Z93.0 Tracheostomy status; L89.154 Pressure ulcer of sacral region, stage 4; E87.2 Acidosis; N39.0 Urinary tract infection, site not specified; I13.0 Hypertensive heart and chronic kidney disease with heart failure and stage 1 through stage 4 chronic kidney disease, or unspecified chronic kidney disease; G40.909 Epilepsy, unspecified, not intractable, without status epilepticus; R65.20 Severe sepsis without septic shock; R13.10 Dysphagia, unspecified; F03.90 Unspecified dementia, unspecified severity, without behavioral disturbance, psychotic disturbance, mood disturbance, and anxiety; D64.9 Anemia, unspecified; E11.22 Type 2 diabetes mellitus with diabetic chronic kidney disease; E86.0 Dehydration; N18.9 Chronic kidney disease, unspecified; Z93.1 Gastrostomy status; Z86.73 Personal history of transient ischemic attack (TIA), and cerebral infarction without residual deficits; Z79.84 Long term (current) use of oral hypoglycemic drugs; Z79.899 Other long term (current) drug therapy; Z88.8 Allergy status to other drugs, medicaments and biological substances; Z68.25 Body mass index [BMI] 25.0-25.9, adult
CPT/HCPCS: 36415; 71010; 80053; 80150; 80202; 81003; 82550; 82553; 82962; 83605; 83735; 83880; 84484; 85025; 86850; 86900; 86901; 86920; 87040; 87070; 87081; 87086; 87181; 87205; 93005; 94002; 94003; 94640; 94664; J8499

== ENCOUNTER 2017-06-09 03:15 | Emergency (ER) | payer MEDICARE, MEDICAID ==
[~2017-06-09] VITALS: Ht 162.6 cm; Wt 59.0 kg
[~2017-06-09 03:15] MED LIST changes: +ACETAMINOPHEN325 M1 GT; +AMIKIN500 MG/2 M HHN; +HUMALOG100 UNIT/3 SUBQ; +IBUPROFEN600 MG GT; +LANSOPRAZOLE30 M2 GT; +PREVACID30 MG GT
--- NOTE | 2017-06-09 03:21 | Emergency Room Report ---
History of Present Illness General Source: Medical Record, EMS Present Illness HPI [id number] BIBEMS from SNF with "abnormal labs" elevated WBC 24K. patient on Abx Q8 already Patient not contributing to HPI No additional info from EMS or SNF No family members bedside All my info from review of EMR Admit 03/28-04/04 for ?PNA. Sputum Cx + for 2 strains of Pseudomonas. Urine Cx with Shirin. Multiple infected sacral decub, PMHx: chronic respiratory failure, ventilator dependent, tracheostomy status, G- tube status, history of CVA, hypertension, and diabetes, Allergies: Coded Allergies: HEPARIN (Unverified Allergy, Unknown, 03/28/17) Patient History Past Medical History: other - see my hpi Past Surgical History: other - Trach/vent depedenet Nursing Documentation-PMH Hx Cardiac Problems: Yes - Anemia, Hx Hypertension: Yes Hx Pacemaker: No Hx Asthma: No - Tracheostomy Hx COPD: No Hx Diabetes: Yes Hx Cancer: No Hx Gastrointestinal Problems: Yes Hx Dialysis: No Hx Neurological Problems: Yes Hx Cerebrovascular Accident: Yes Hx Dementia: Yes Hx Seizures: Yes Hx Epilepsy: Yes Hx Aphasia: Yes Hx Dysphasia: Yes Hx Weakness: Yes Hx Neurologic Surgery: No Hx Brain Shunt: No Review of Systems All Other Systems: limited - patient aphasic Physical Exam [id number] EP Interpretation: reviewed, normal General Appearance: normal inspection, well appearing, no apparent distress, alert, GCS 15, non-toxic Head: normocephalic, atraumatic Eyes: bilateral eye EOMI, bilateral eye PERRL ENT: normal ENT inspection, normal pharynx, no angioedema Neck: normal inspection, full range of motion, supple, no meningismus, no bony tend, tracheotomy Respiratory: normal inspection, lungs clear, normal breath sounds, no respiratory distress, no retraction, no wheezing Cardiovascular #1: regular rate, rhythm, no edema Gastrointestinal: normal inspection, normal bowel sounds, non tender, soft, no guarding, no hernia Genitourinary: no CVA tenderness Musculoskeletal: normal inspection, back normal, normal range of motion, Rosie' s Sign negative Neurologic: normal inspection, alert, responsive, machine quilt stuffer III-XII nml as tested, motor strength/tone normal, speech normal Psychiatric: normal inspection, judgement/insight normal, mood/affect normal Skin: normal inspection, normal color, no rash Medical Decision Making Diagnostic Impression: Primary Impression: Abnormal laboratory test result Additional Impression: UTI (urinary tract infection) Qualified Codes: N30.01 - Acute cystitis with hematuria ER Course Labs: H&H stable. Leuks normal. UA infected. No other metabolic abnormality CXR: No obvious PNA Vitals stable patient in no distress Called [facility] - they said they were given wrong info by lab and that patient's leuks were NOT 24K. They said they realized this while patient was in our ED but didnt call to tell us. I informed Dr Zhou as the PMD that we were sending patient back to SNF at 457am. Has UTI but already on Abx DC back to SNF EKG Diagnostic Results Rate: normal Rhythm: NSR ST Segments: no acute changes ASA given to the pt in ED: No Rhythm Strip Diag. Results EP Interpretation: yes Rate: 95 Rhythm: NSR, no PVC's, no ectopy Status: improved [facility] Stable TIMOTHY GALVAN M.D. Jun 09, 2017 03:21
[2017-06-09] MEDS ORDERED: Vancomycin 1 GM in NS 275 ML IV ONE (03:45)
[2017-06-09 03:59] LABS: KETONES,URINE NEGATIVE (NEGATIVE); LEUKOCYTE ESTERASE ,URINE 3+ (NEGATIVE); NITRITE,URINE NEGATIVE (NEGATIVE); PH,URINE 8 (4.5-8.0); PROTEIN,URINE 2+ (NEGATIVE); UROBILINOGEN,URINE NORMAL MG/DL (0.0-1.0)
[2017-06-09] MEDS ORDERED: NS 275 ML ONE (04:00)
[2017-06-09] MEDS ORDERED: Vancomycin 1gm inj IVPB ONE (04:00)
[2017-06-09] MEDS ORDERED: Tubing IV Cassette IV ONE (04:00)
[2017-06-09 04:03] LABS: EOSINOPHILS % (AUTO) 4.1 % (0.0-3.0); MEAN CORPUSCULAR HEMOGLOBIN 26.6 PG (27.0-31.0); MEAN CORPUSCULAR HGB CONC 30.8 G/DL (32.0-36.0); MEAN CORPUSCULAR VOLUME 86 FL (80-99); MEAN PLATELET VOLUME 10.6 FL (6.5-10.1); MONOCYTES % (AUTO) 9.5 % (1.0-10.0); NEUTROPHILS % (AUTO) 47.5 % (45.0-75.0); PLATELET COUNT 215 K/UL (150-450); RED BLOOD COUNT 4.15 M/UL (4.20-5.40); RED CELL DISTRIBUTION WIDTH 15.1 % (11.6-14.8); WHITE BLOOD COUNT 8.4 K/UL (4.8-10.8)
[2017-06-09 04:08] LABS: APPEARANCE,URINE SLIGHTLY CLOUDY
[2017-06-09 04:09] LABS: BACTERIA,URINE FEW /HPF; SQUAMOUS EPITHELIAL CELL,UR MODERATE /LPF (NONE/OCC); WBC,URINE TNTC /HPF (0 - 2)
[2017-06-09 04:10] LABS: YEAST,URINE MANY /HPF
[2017-06-09 04:15] LABS: ALANINE AMINOTRANSFERASE 5 U/L (3-33); ALBUMIN/GLOBULIN RATIO 0.6 (1.0-2.7); ANION GAP 13 (5-15); ASPARTATE AMINO TRANSFERASE 8 U/L (5-40); CALCIUM 9.4 mg/dL (8.6-10.2); CARBON DIOXIDE 26 mEQ/L (20-30); CHLORIDE 99 mEQ/L (98-107); CREATININE 0.5 mg/dL (0.5-0.9); GLOMERULAR FILTRATION RATE > 60 mL/min (>60); HEMOLYSIS 0; POTASSIUM 4.3 mEQ/L (3.4-4.9); SODIUM 138 mEQ/L (135-145); TOTAL PROTEIN 8.5 g/dL (6.6-8.7)
[2017-06-09 04:18] LABS: TROPONIN I < 0.30 ng/mL (<=0.30)
[2017-06-09 04:25] LABS: CKMB < 1.5 ng/mL (< 3.8)
[2017-06-09 04:27] VITALS: BP 140/119
[2017-06-09 05:59] VITALS: BP 147/73
[2017-06-09] MEDS ORDERED: Piperacillin/Tazobactam 4.5 GM in NS 110 ML IV SCH (06:00)
[2017-06-09 06:58] VITALS: BP 147/73
--- NOTE | 2017-06-10 09:06 | Diagnostic Imaging Report ---
Indication: Dyspnea Comparison: 04/01/17 A single view chest radiograph was obtained. Findings: Mild left basal atelectasis demonstrated. Heart size is normal. Tracheostomy is demonstrated. Bones are osteopenic. Impression: Mild left basal atelectasis
--- NOTE | 2017-06-10 18:55 | Cardiology Report ---
APPROVED REPORT EKG Measurement Heart [id number] Normal sinus rhythm Normal ECG
== END 2017-06-09 06:58 ==
LOC: EDUNIT# 03:15 → EDBD 03:15 → EMR 03:44 → UNDOADMIN 03:48 → 2W 03:48 → EDBEDREQ 04:28
DX: N30.01 Acute cystitis with hematuria (principal); R79.9 Abnormal finding of blood chemistry, unspecified; G40.909 Epilepsy, unspecified, not intractable, without status epilepticus; F03.90 Unspecified dementia, unspecified severity, without behavioral disturbance, psychotic disturbance, mood disturbance, and anxiety; Z86.73 Personal history of transient ischemic attack (TIA), and cerebral infarction without residual deficits; E11.9 Type 2 diabetes mellitus without complications; I10 Essential (primary) hypertension; Z93.0 Tracheostomy status; Z88.8 Allergy status to other drugs, medicaments and biological substances
CPT/HCPCS: 36415; 71010; 80053; 81003; 82550; 82553; 83605; 84484; 85025; 87040; 87086; 93005; 94002; 96374; 96375; 99284; J3370; J7050